=== PATIENT | female | born 1945 | race Caucasian/White ===

== ENCOUNTER 2018-01-08 05:52 | Day surgery (SDC) | payer MEDICARE, OTHER ==
[2018-01-08] MEDS ORDERED: PHENYLEPHRINE HCL IV ONE (05:53)
[2018-01-08] MEDS ORDERED: DIPRIVAN 200 MG/20 ML IV ONE (05:53)
[2018-01-08] MEDS ORDERED: Lactated Ringers 1,000 ML IV SCH (06:00)
[2018-01-08] MEDS ORDERED: Lactated Ringers 1,000 ML IV ONE (07:31)
[2018-01-08 08:51] VITALS: O2SAT 97
[2018-01-08 09:37] VITALS: BP 117/69; PULSE 62
--- NOTE | 2018-01-08 14:37 | OP ---
SURGERY DATE: 01/08/18 SURGERY TIME: 704 PREOPERATIVE DIAGNOSIS: 1. IRON DEFICIENCY ANEMIA. 2. NEED FOR SCREENING COLONOSCOPY. POSTOPERATIVE DIAGNOSIS: 1. MODERATE GASTRITIS. 2. MULTIPLE COLON POLYPS. PROCEDURE: 1. EGD. 2. Colonoscopy. SPECIMENS: There were 2 cold forceps biopsies taken from the gastric antrum and 12 hot forceps polypectomies. ESTIMATED BLOOD LOSS: Minimal. SURGEON: Dr. Tony Thornton. ANESTHESIA: MAC by Parker Nobles CRNA. DESCRIPTION OF PROCEDURE: After informed written consent was obtained, the patient was taken to the endoscopy suite. She underwent monitored anesthesia and a bite block was inserted. The endoscope was inserted in the posterior oropharynx and under direct visualization, the esophagus was traversed. The esophageal mucosa was normal in appearance, free of lesions or defects. The gastroesophageal junction had a normal mucosal appearance as well. Upon entry into the stomach, there was normal rugated gastric mucosa with evidence of old dried blood present throughout most of the stomach. There were no obvious areas of ulceration or active bleeding. There was some mild to moderate gastritis type changes in the area of the gastric antrum. Two cold forceps biopsies were taken from this area and sent for Helicobacter pylori testing. The 1st and 2nd portions of the duodenum appeared normal upon passage through the pylorus. Upon withdrawal, no other mucosal abnormalities were encountered. The scope was removed and the scopes were switched. Digital rectal exam showed normal sphincter tone and no internal lesions. The scope was inserted in the rectum and sequentially the entire colonic mucosa was traversed. The level of the cecum was reached and verified with direct visualization of the ileocecal valve. There was broad raised sessile polyp in the pericecal area which was grasped with forceps and base was cauterized and it was removed in its entirety in 2 pieces and sent for pathology testing. Upon withdrawal, there were 2 lesions in the ascending colon likewise which were removed grasping with forceps and cautery. Hepatic flexure polyps were removed X 2 as well. Upon further withdrawal, there were approximately 8 lesions present in the sigmoid colon in different positions throughout the sigmoid colon. They were grasped with forceps, cauterized at the base, removed, and sent for pathology testing. There were multiple large diverticula in the sigmoid colon as well, but no obvious bleeding. Prior to withdrawal, retroflexion showed no internal lesions. The scope was removed and the patient was transferred to the recovery room in excellent condition. I have advised that she hold her aspirin and Plavix for the next week and follow-up in 1 week for pathology results.
== END 2018-01-08 09:40 | disposition home or self-care (01) ==
LOC: SDC 05:52
PROVIDERS: ATTEND Family Medicine
DX: K29.70 Gastritis, unspecified, without bleeding (principal); D50.9 Iron deficiency anemia, unspecified; Z12.11 Encounter for screening for malignant neoplasm of colon; K63.5 Polyp of colon; I12.9 Hypertensive chronic kidney disease with stage 1 through stage 4 chronic kidney disease, or unspecified chronic kidney disease; N18.9 Chronic kidney disease, unspecified; Z86.73 Personal history of transient ischemic attack (TIA), and cerebral infarction without residual deficits
CPT/HCPCS: 99100; J2370; J2704

== ENCOUNTER 2018-04-07 09:33 | Day surgery (SDC) | payer MEDICARE, OTHER ==
--- NOTE | 2018-04-07 07:49 | HP ---
DATE OF SURGERY: 04/07/2018 HISTORY OF PRESENT ILLNESS: The patient is a 72 year-old patient of Dr. Tse found with some cholelithiasis. He had prior open abdominal aortic aneurysm repair by Dr. Panchal in the past. Dr. Tse felt that she had symptomatic cholelithiasis probable chronic cholecystitis. PAST MEDICAL HISTORY: Includes ruptured aneurysm repair by Dr. Panchal. She had Chiu's in the past. She has history of a common bile duct stone. PAST SURGICAL HISTORY: Open aneurysm repair 01/27/[address] Panchal. She had hysterectomy in the past. History of transient ischemic attack in the past. She had stent placed in the past for obstructed biliary tree postoperatively. MEDICATIONS: Amlodipine, aspirin, Atorvastatin, ciprofloxacin, Zetia, levothyroxine, metoprolol, pantoprazole, Sulcralfate. ALLERGIES: NKDA. SOCIAL HISTORY: No smoking or alcohol abuse currently. REVIEW OF SYSTEMS: Twelve systems reviewed per admission assessment. She has hyperlipidemia, hypertension. No history of transient ischemic attack or stroke in the past. No chest pain or palpitations other systems negative or noncontributory as above and per preadmission questionnaire. PHYSICAL EXAMINATION: GENERAL: No acute distress. HEENT: Sclerae nonicteric. NECK: No JVD. CHEST: Equal excursion, nonlabored breathing. CVS: Regular rate and rhythm. ABDOMEN: Soft. She has a midline incision from prior open aneurysm repair. EXTREMITIES: No significant edema. NEURO: Alert, oriented, moving extremities grossly symmetrically. No gross motor deficits noted. IMPRESSION: History of common bile duct stone. She is in need of cholecystectomy. She was shown the gallbladder pamphlet, explained the risks in detail but not limited to bleeding or infection, risk of trocar injury or hernia, small risk of bowel, bladder or blood vessel injury, small risk of bile leak, bile duct injury, retained stone or sludge possibly requiring further procedure either open or ERCP, general risk of anesthesia, deep venous thrombosis, pulmonary embolism, pneumonia, perioperative risk of aches, pains, bloating, constipation and/or loose stools possibly even chronic in nature. She understands she has higher probability of needing an open procedure again with her midline incision from her recent aneurysm repair. She still understands and agrees to the planned procedure, will proceed with laparoscopic cholecystectomy with possible open.
[~2018-04-07 09:33] MED LIST: Lactated Ringers 1,000 ML IV ONE; Lactated Ringers 1,000 ML IV SCH; MEFOXIN 2 GM PREMIX** 2 GM/50 ML ML IV ONE
[2018-04-07] MEDS ORDERED: DIPRIVAN 200 MG/20 ML IV ONE (09:34)
[2018-04-07] MEDS ORDERED: Zofran 4 MG/2 ML VIAL IV ONE (09:34)
[2018-04-07] MEDS ORDERED: SUBLIMAZE 250 MCG/5 ML IV ONE (09:34)
[2018-04-07] MEDS ORDERED: PHENYLEPHRINE HCL IV ONE (09:34)
[2018-04-07] MEDS ORDERED: Zemuron 100 MG/10 ML IV ONE (09:34)
[2018-04-07] MEDS ORDERED: Ephedrine Sulfate 50 MG/ML IV ONE (09:34)
[2018-04-07] MEDS ORDERED: Lactated Ringers 1,000 ML IV ONE (09:37)
[2018-04-07] MEDS ORDERED: Sensorcaine 0.25% 10 ML ONE (09:37)
[2018-04-07] MEDS ORDERED: Versed 2 MG/2 ML Injection IV ONE (09:48)
[2018-04-07] MEDS ORDERED: Versed 2 MG/2 ML Injection ONE (10:05)
[2018-04-07] MEDS ORDERED: MORPHINE SULFATE 10 MG/ML ONE (13:08)
[2018-04-07] MEDS ORDERED: NORCO 5/325 MG PO PRN (13:42)
[2018-04-07] MEDS ORDERED: NORCO 5/325 MG ONE (13:44)
[2018-04-07 14:26] LABS: Appearance CLEAR (CLEAR); Bacteria FEW /HPF (NEGATIVE); Bilirubin SMALL (NEGATIVE); Epithelial Cells RARE /HPF (FEW); Glucose NEGATIVE (NEGATIVE); Ketones NEGATIVE (NEGATIVE); Leukocyte Esterase 1+ (NEGATIVE); Nitrite NEGATIVE (NEGATIVE); Protein,Urine Dip 1+ (Negative); Urobilinogen NORMAL mg/dL (0-1)
[2018-04-07 15:47] VITALS: O2SAT 93
[2018-04-07 16:02] VITALS: BP 127/77; PULSE 76
--- NOTE | 2018-04-08 10:58 | OP ---
SURGERY DATE/TIME: 04/07/2018 1147 PREOPERATIVE DIAGNOSES: 1) History of prior open ruptured aneurysm repair by Dr. Panchal. 2) History of choledocholithiasis status post stone extraction and stent placement per Dr. Tse. 3) Cholelithiasis, chronic cholecystitis. POSTOPERATIVE DIAGNOSES: 1) History of prior open ruptured aneurysm repair by Dr. Panchal. 2) History of choledocholithiasis status post stone extraction and stent placement per Dr. Tse. 3) Cholelithiasis, chronic cholecystitis. 4) Extensive intra-abdominal adhesions. PROCEDURES: 1) Laparoscopic lysis of adhesions. 2) Laparoscopic cholecystectomy. SURGEON: Dr. João Arora. ANESTHESIA: General. ESTIMATED BLOOD LOSS: Minimal. INDICATIONS: As noted above. Risks and benefits explained in detail but not limited to and consent was obtained. DESCRIPTION OF PROCEDURE AND FINDINGS: The patient was taken to the OR. General anesthesia induced. Abdomen prepped and draped in the usual sterile fashion. After official time out and no disagreement with planned procedure, a transverse incision made to the right of the midline incision from a prior ruptured abdominal aortic aneurysm repair. Veress needle inserted. Pneumoperitoneum accomplished insufflating opening pressure of 0-15. Once this was accomplished a 5 mm right upper quadrant port was placed without difficulty. There were extensive omental adhesions up in this area. There was no viscera right in this area. I was able to create it above the liver to allow the 5 mm epigastric port to be placed and another right upper quadrant 5 mm port. A combination of laparoscopic omid lysing the omental adhesions as well as intermittent use of LigaSure device on vascular omental adhesions. The adhesions were carefully taken down off of the inferior abdominal wall slowly and carefully creating a window to allow for the laparoscopic cholecystectomy to take place allowing access to where the Veress needle had been placed. Dissection was carried down to this. There was no evidence of any bowel or viscera in this area. No evidence of any issues secondary to Veress needle or port placement. This took some time with extensive lysis of adhesions in the upper abdomen that had been slowly and carefully accomplished allowing access to place the remaining ports for proceeding with cholecystectomy laparoscopically. A 5 mm bladeless port and camera were inserted to the right of the umbilicus. The 5 mm port in the epigastrium was changed to 10/11 port. The gallbladder was grasped and retracted up over the edge of the liver. Extensive omental adhesions dissected posterior, lateral to anterior fashion slowly and carefully allowing access to cystic duct and infundibular junction slowly and carefully well skeletonized until critical view obtained both anteriorly and posteriorly. Once this was accomplished cystic duct was then clipped x3 and divided in usual fashion. Main cystic artery was isolated directly on the gallbladder wall. It was clipped x3 and divided in usual fashion. There was oozing side branch off the cystic artery that was isolated directly on the gallbladder wall clipped and divided in usual fashion. The gallbladder was slowly and carefully dissected free from its dense almost concrete attachments to the liver bed slowly and carefully staying on the gallbladder wall clipping additional oozing side branches off the cystic artery as necessary. This took quite some time given extensive chronic inflammatory reaction but slowly and carefully accomplished. There was small ooze from the anterior edge of the liver this was controlled with brief bursts of cautery of pinpoint cautery. Good hemostasis noted. Just prior to releasing from final attachments to the anterior edge of the liver the liver bed re-inspected. Clips are noted in place in cystic duct and cystic artery stumps. There were no signs of any active bleeding or bile leakage from the liver bed itself. One of the graspers tore a small pinhole in the gallbladder spilling a small amount of bile. There was no evidence of any obvious stone or visible sludge spillage. The gallbladder was released from final attachments from anterior edge of the liver placed in a Pleatman sac and taken out epigastric 10/11 port site and passed off. Copious amount of irrigation accomplished lateral to the liver and subhepatic space irrigating until clear with copious amount of saline, irrigating as clear as possible. The liver bed re-inspected. Clips noted in place in cystic duct and cystic artery stumps. There were no signs of any active bleeding or bile leakage. There was a little raw edge of the liver but no visible vessel to cauterize or clip so put a small piece of Surgicel was left up against this and had good hemostasis. Good hemostasis noted. It was felt there is no benefit from drain placement. Careful inspected of all lysis of adhesions and stayed well away from any viscera. Good hemostasis noted. There is no evidence of any issue secondary to lysis of adhesions that had taken extensive extra time for the case but had been carefully accomplished. The port was removed lateral to the umbilical area. Good hemostasis noted. Pneumoperitoneum suctioned free after first closing the 11 fascial defect with puncture closure device with #1 Vicryl. Pneumoperitoneum decompressed. The wound was irrigated out. Skin incision closed with 4-0 Vicryl. Steri-Strips and sterile dressing applied. 0.25% Marcaine local had been injected along the skin incision fascial defect. The patient tolerated the procedure well. There were no immediate complications. Findings discussed with the family out in the waiting area. She was transferred to the recovery room in stable condition.
== END 2018-04-07 16:15 | disposition home or self-care (01) ==
LOC: SDC 09:33
PROVIDERS: ATTEND Surgery
DX: K80.10 Calculus of gallbladder with chronic cholecystitis without obstruction (principal); K66.0 Peritoneal adhesions (postprocedural) (postinfection); Z79.899 Other long term (current) drug therapy
CPT/HCPCS: 81000; 87086; 88304; 94250; 99100; J0694; J2250; J2270; J2370; J2405; J2704; J3010; A9270-GY

== ENCOUNTER 2019-11-23 04:53 | Emergency (ER) | payer MEDICARE, OTHER ==
[2019-11-23] MEDS ORDERED: DUONEB 0.5-3 MG/3 ml Neb IH ONE ×2 (05:28→05:39)
[2019-11-23] MEDS ORDERED: PROVENTIL 2.5 MG/3 ML NEB IH ONE ×2 (05:28→05:39)
--- NOTE | 2019-11-23 05:39 | ERPHSYRPT ---
- History of Present Illness Source: patient Exam Limitations: no limitations Patient Subjective Stated Complaint: pt c/o cough x2 weeks, sob, low blood pressure and low O2 sats, nausea, cold sweat. Triage Nursing Assessment: pt c/o cough x2 weeks. But tonight around 2300, became sob, low O2 sats, hypotension, nausea and cold sweat. Pt c/o productive cough, clear in color. Pt denies any fever. Pt has runny nose. Lungs diminished throughout ant/post, not much air movement. Heart tones reg, abd soft with active bs x4 quad. pt c/o weakness and tiredness. Pt states, "I haven't slept hardly in a week". Pt doesn't wear O2 at home but does wear a CPAP at night. Associated Symptoms: shortness of breath, cough, headaches, No nausea, No vomiting, No abdominal pain, No chest pain, No fever Hx Tetanus, Diphtheria Vaccination/Date Given: Yes Hx Influenza Vaccination/Date Given: No Hx Pneumococcal Vaccination/Date Given: Yes Immunizations Up to Date: Yes <FAB MALDONADO - Last Filed: 11/23/19 07:01> <LEROY RICHARDSON - Last Filed: 11/23/19 08:48> - History of Present Illness Time Seen by Provider: 11/23/19 05:28 Physician History: The patient is a 74-year-old female with a past medical history significant for COPD, ongoing cigarette use who reportedly was smoking 2 packs a day until about a year ago and now is down to a half a pack a day, atrial fibrillation for which she is anticoagulated with apixaban, hypertension, and a history of a AAA who presents with a chief complaint of a productive cough and shortness of breath. Persistent cough for the last 2 weeks and progressive shortness of breath. She was seen by her primary care provider, Dr. Thornton, last Saturday. She reportedly has been using her nebs at home with no relief. She also has a history of obstructive sleep apnea for which she uses CPAP but has been using it frequently at night because of her cough over the last couple weeks. She endorsed having an intermittent headache but currently no headache now, runny nose but denies chest pain, productive cough, fever, myalgias, sore throat. The patient endorsed having a bilateral earache for which she was prescribed Augmentin for otitis media. The patient denies melena, hematochezia or any known blood loss and states that she has been worked up for anemia as an outpatient to include stool studies and currently there is no source of her bleeding at this time. She arrives via EMS and received 1 DuoNeb, IV access, and 125 mg of Solu-Medrol prior to arrival. She does not use supplemental oxygen at home (FAB MALDONADO) Allergies/Adverse Reactions: No Known Drug Allergies Allergy (Verified 11/23/19 05:12) Home Medications: Amlodipine Besylate 5 mg [Norvasc 5 mg] 5 mg PO BID 01/06/18 [History] Atorvastatin Calcium 80 mg PO DAILY 01/06/18 [History] Levothyroxine Sodium 88 Mcg [Synthroid 88 Mcg] 88 mcg PO DAILY 01/06/18 [ History] Ezetimibe 10 mg [Zetia 10 MG] 10 mg PO HS 04/02/18 [History] Metoprolol Tartrate 50 mg PO BID 04/02/18 [History] PANTOPRAZOLE 40 mg Tablet [Protonix 40MG Tablet] 40 mg PO BID 04/02/18 [ History] Alirocumab [Praluent Pen] 75 mg SQ UD 11/23/19 [History] Amoxicillin/Potassium Clav [Amox-Clav 875-125 mg Tablet] 1 tab PO BID 11/23/19 [ History] Apixaban [Eliquis] 5 mg PO BID 11/23/19 [History] Hydralazine HCl 10 mg PO TID PRN 11/23/19 [History] [place]-3 Fatty Acids/Fish Oil [Fish Oil 1,000 mg Capsule] 1 tab PO BID 11/23/19 [ History] Travel Risk - International Travel Have you traveled outside of the country in past 3 weeks: No Have you or anyone close to you been diagnosed with or: No Do your reside in a community with a known COVID-19 case?: No - Coronavirus Screening Has patient experienced Coronavirus symptoms: Yes Symptoms experienced: respiratory symptoms (i.e.Cought,shortness of breath) Date of respiratory symptoms onset:: 11/09/19 <FAB MALDONADO - Last Filed: 11/23/19 07:01> - Review of Systems Constitutional: Fatigue, No Fever, No Chills Eyes: No Symptoms Ears, Nose, & Throat: Ear Pain, Nose Congestion, No Ear Discharge, No Hearing Changes, No Hoarse, No Painful Swallowing, No Snoring, No Stridor Respiratory: Cough, Dyspnea, Dyspnea on Exertion (PERES), Wheezing Cardiac: No Chest Pain, No Edema, No Palpitations, No Syncope Abdominal/Gastrointestinal: No Abdominal Pain, No Nausea, No Vomiting, No Diarrhea Genitourinary Symptoms: No Dysuria Musculoskeletal: No Back Pain Skin: No Symptoms Neurological: No Symptoms, Headache, No Focal Weakness Psychological: No Symptoms Endocrine: No Symptoms Hematologic/Lymphatic: No Symptoms All Other Systems: Reviewed and Negative <FAB MALDONADO - Last Filed: 11/23/19 07:01> - Past Medical History Pertinent Past Medical History: Yes Neurological History: Stroke, Other ENT History: No Pertinent History Cardiac History: High Cholesterol, Hypertension Respiratory History: COPD Endocrine Medical History: Hypothyroidism Musculoskeletal History: No Pertinent History GI Medical History: GERD History: No Pertinent History Psycho-Social History: No Pertinent History Female Reproductive Disorders: Cervical Cancer Other Medical History: 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 ruptured aaa - Past Surgical History Past Surgical History: Yes Neuro Surgical History: No Pertinent History Cardiac: Other Respiratory: No Pertinent History Gastrointestinal: Appendectomy, Cholecystectomy Genitourinary: No Pertinent History Musculoskeletal: No Pertinent History Female Surgical History: Hysterectomy Other Surgical History: AAA repair - Social History Smoking Status: Current every day smoker How long have you smoked: 40 yrs Exposure to second hand smoke: No Drug Use: none Patient Lives Alone: No - Female History Hx Now: No <FAB MALDONADO - Last Filed: 11/23/19 07:01> - Physical Exam General Appearance: no apparent distress, alert Eye Exam: PERRL/EOMI, eyes nml inspection Ears, Nose, Throat Exam: normal ENT inspection, TMs normal, pharynx normal, moist mucous membranes, No TM abnormal (R), No TM abnormal (L), No pharyngeal erythema, No tonsillar exudate Neck Exam: normal inspection, non-tender, supple, No mass, No JVD Respiratory Exam: airway intact, diminished breath sounds, wheezing, No pleural rub Cardiovascular Exam: regular rate/rhythm, normal peripheral pulses, capillary refill <2 sec, No edema, No pulse deficit Gastrointestinal/Abdomen Exam: No soft, No tenderness, No distention, No mass Pelvic Exam: not done Rectal Exam: deferred Back Exam: normal inspection Extremity Exam: normal inspection, other (Lower extremity edema, calf tenderness or erythema to suggest DVT), No tenderness Neurologic Exam: alert, oriented x 3, cooperative Skin Exam: normal color, warm, dry, No rash, No petechiae, No jaundice SpO2: 89 O2 Delivery: Nasal Cannula <FAB MALDONADO - Last Filed: 11/23/19 07:01> - Nursing Vital Signs Nursing Vital Signs: Initial Vital Signs Temperature 98.3 F 11/23/19 04:58 Pulse Rate 55 L 11/23/19 04:58 Respiratory Rate 21 11/23/19 04:58 Blood Pressure 123/59 11/23/19 04:58 O2 Sat by Pulse Oximetry 88 L 11/23/19 04:58 Pain Scale Pain Intensity 0 - Course Nursing assessment & vital signs reviewed: Yes EKG Interpreted by Me: Sinus Eros, Left [place] Deviation, NORMAL INTERVALS, NORMAL QRS, Non-specific ST Changes <FAB MALDONADO - Last Filed: 11/23/19 07:01> - Course Nursing assessment & vital signs reviewed: Yes EKG Interpreted by Me: RATE (51) - Radiology Exams Chest X-ray Interpretation: Interpreted by me, Pneumonia (Right lower lobe) <LEROY RICHARDSON - Last Filed: 11/23/19 08:48> Ordered Tests: Active Orders 24 hr Category Date Time Status Binding D[place] STAT Care 11/23/19 05:29 Active EKG-ER Only STAT Care 11/23/19 05:28 Active IV Insertion STAT Care 11/23/19 05:28 Active Pulse Oximetry (ED) STAT Care 11/23/19 05:28 Active CHEST 2 VIEWS (PA AND LAT) Stat Exams 11/23/19 05:29 Taken CHEST WITHOUT CONTRAST [CT] Stat Exams 11/23/19 07:01 Ordered BLOOD CULTURE Stat Lab 11/23/19 05:45 Received BMP Stat Lab 11/23/19 05:45 Completed CBC W DIFF Stat Lab 11/23/19 05:45 Completed D-DIMER QUANTITATIVE Stat Lab 11/23/19 07:51 Ordered Ferritin Stat Lab 11/23/19 Ordered Hepatic Function Panel Stat Lab 11/23/19 07:50 Ordered Lactic Acid Stat Lab 11/23/19 06:14 Completed Occult Blood, Other Screening Stat Lab 11/23/19 07:00 Completed TROPONIN Q3H Lab 11/23/19 08:00 Ordered TROPONIN Q3H Lab 11/23/19 11:00 Ordered TROPONIN Q3H Lab 11/23/19 14:00 Ordered TROPONIN Q3H Lab 11/23/19 17:00 Ordered TROPONIN Q3H Lab 11/23/19 20:00 Ordered TROPONIN Q3H Lab 11/23/19 23:00 Ordered TROPONIN Stat Lab 11/23/19 05:45 Completed TSH [TSH, 3RD Generation] Stat Lab 11/23/19 06:04 Completed VENOUS BLOOD GAS Stat Lab 11/23/19 05:40 Completed Peak Expiratory Flow Rate ONCE RT 11/23/19 05:55 Completed Respiratory Therapy Assessment DAILY RT 11/23/19 05:55 Completed Medication Summary Discontinued Medications Generic Name Dose Route Start Last Admin Trade Name Freq PRN Reason Stop Dose Admin Albuterol Sulfate 2.5 mg 11/23/19 05:28 11/23/19 05:54 Proventil 2.5 Mg/3 Ml Neb IH 11/23/19 05:29 2.5 mg STAT ONE Administration Albuterol Sulfate Confirm 11/23/19 05:39 Proventil 2.5 Mg/3 Ml Neb Administered 11/23/19 05:40 Dose 2.5 mg IH .STK-MED ONE Albuterol/Ipratropium 3 ml 11/23/19 05:28 11/23/19 05:48 Duoneb 0.5-3 Mg/3 Ml Neb IH 11/23/19 05:29 3 ml STAT ONE Administration Albuterol/Ipratropium Confirm 11/23/19 05:39 Duoneb 0.5-3 Mg/3 Ml Neb Administered 11/23/19 05:40 Dose 3 ml IH .STK-MED ONE Azithromycin 500 mg in 250 mls @ 250 mls/hr 11/23/19 06:52 11/23/19 07:37 Zithromax 500 Mg/ 250 Ml Nacl Premix IV 11/23/19 07:51 250 mls/hr STAT ONE Administration Ceftriaxone Sodium/Dextrose 1 g in 50 mls @ 100 mls/hr 11/23/19 06:52 07:36 Rocephin 1 Gm-D5w 50 Ml Bag IV 11/23/19 07:21 Infused STAT STA Infusion Ceftriaxone Sodium/Dextrose Confirm 11/23/19 06:58 Rocephin 1 Gm-D5w 50 Ml Bag Administered 11/23/19 06:59 Dose 1 g in 50 mls @ ud IV .STK-MED ONE Azithromycin Confirm 11/23/19 07:32 Zithromax 500 Mg/ 250 Ml Nacl Premix Administered 11/23/19 07:33 Dose 500 mg in 250 mls @ ud IV .STK-MED ONE Lab/Rad Data: Laboratory Result Diagrams 11/23/19 05:45 11/23/19 05:45 Laboratory Results 11/23/19 11/23/19 11/23/19 Range/Units 07:00 06:41 06:14 WBC (4.0-10.5) K/mm3 RBC (4.1-5.4) M/mm3 Hgb (12.0-16.0) gm/dl Hct (35-47) % MCV (78-100) fl MCH (26-32) pg MCHC (32-36) g/dl RDW (11.5-14.0) % Plt Count (150-450) K/mm3 MPV (7.5-11.0) fl Gran % (36.0-66.0) % Eos # (Auto) (0-0.5) Absolute Lymphs (auto) (1.0-4.6) Absolute Monos (auto) (0.0-1.3) Lymphocytes % (24.0-44.0) % Monocytes % (0.0-12.0) % Eosinophils % (0.00-5.0) % Basophils % (0.0-0.4) % Absolute Granulocytes (1.4-6.9) Basophils # (0-0.4) pO2/FiO2 Ratio % VBG pH (7.32-7.42) VBG pCO2 at Pat Temp (42-55) mm/Hg VBG pO2 at Pat Temp (25-40) mm/Hg VBG HCO3 (22-28) meq/L VBG O2 Sat (Nazanin) (95-100) VBG Base Excess (-2.0-2.0) VBG Hemoglobin VBG Carboxyhemoglobin (0.0-6.9) % T HGB POC Potassium (3.5-5.1) Sodium (137-145) mmol/L Potassium (3.5-5.1) mmol/L Chloride (98-107) mmol/L Carbon Dioxide (22-30) mmol/L Anion Gap (5-15) MEQ/L BUN (7-17) mg/dL Creatinine (0.52-1.04) mg/dL Estimated GFR ML/MIN Glucose (74-106) mg/dL Lactic Acid 1.2 (0.4-2.0) Calcium (8.4-10.2) mg/dL Troponin I (0.000-0.034) ng/mL TSH 3rd Generation (0.47-4.68) mIU/L Stool Occult Blood NEGATIVE (Negative) Influenza Type A Ag (NEGATIVE) Influenza Type B Ag (NEGATIVE) RSV (PCR) (Negative) Crossmatch Pending 11/23/19 11/23/19 11/23/19 Range/Units 06:04 05:45 05:45 WBC (4.0-10.5) K/mm3 RBC (4.1-5.4) M/mm3 Hgb (12.0-16.0) gm/dl Hct (35-47) % MCV (78-100) fl MCH (26-32) pg MCHC (32-36) g/dl RDW (11.5-14.0) % Plt Count (150-450) K/mm3 MPV (7.5-11.0) fl Gran % (36.0-66.0) % Eos # (Auto) (0-0.5) Absolute Lymphs (auto) (1.0-4.6) Absolute Monos (auto) (0.0-1.3) Lymphocytes % (24.0-44.0) % Monocytes % (0.0-12.0) % Eosinophils % (0.00-5.0) % Basophils % (0.0-0.4) % Absolute Granulocytes (1.4-6.9) Basophils # (0-0.4) pO2/FiO2 Ratio % VBG pH (7.32-7.42) VBG pCO2 at Pat Temp (42-55) mm/Hg VBG pO2 at Pat Temp (25-40) mm/Hg VBG HCO3 (22-28) meq/L VBG O2 Sat (Nazanin) (95-100) VBG Base Excess (-2.0-2.0) VBG Hemoglobin VBG Carboxyhemoglobin (0.0-6.9) % T HGB POC Potassium (3.5-5.1) Sodium 135 L (137-145) mmol/L Potassium 5.5 H (3.5-5.1) mmol/L Chloride 105 (98-107) mmol/L Carbon Dioxide 23 (22-30) mmol/L Anion Gap 12.7 (5-15) MEQ/L BUN 41 H (7-17) mg/dL Creatinine 1.58 H (0.52-1.04) mg/dL Estimated GFR 34.0 ML/MIN Glucose 122 H (74-106) mg/dL Lactic Acid (0.4-2.0) Calcium 8.6 (8.4-10.2) mg/dL Troponin I 0.654 H* (0.000-0.034) ng/mL TSH 3rd Generation 2.220 (0.47-4.68) mIU/L Stool Occult Blood (Negative) Influenza Type A Ag NEGATIVE (NEGATIVE) Influenza Type B Ag NEGATIVE (NEGATIVE) RSV (PCR) NEGATIVE (Negative) Crossmatch 11/23/19 11/23/19 Range/Units 05:45 05:40 WBC 12.3 H (4.0-10.5) K/mm3 RBC 2.86 L (4.1-5.4) M/mm3 Hgb 7.1 L (12.0-16.0) gm/dl Hct 23.0 L (35-47) % MCV 80.4 (78-100) fl MCH 24.8 L (26-32) pg MCHC 30.9 L (32-36) g/dl RDW 16.8 H (11.5-14.0) % Plt Count 431 (150-450) K/mm3 MPV 8.9 (7.5-11.0) fl Gran % 77.2 H (36.0-66.0) % Eos # (Auto) 0.29 (0-0.5) Absolute Lymphs (auto) 1.39 (1.0-4.6) Absolute Monos (auto) 1.07 (0.0-1.3) Lymphocytes % 11.3 L (24.0-44.0) % Monocytes % 8.7 (0.0-12.0) % Eosinophils % 2.4 (0.00-5.0) % Basophils % 0.4 (0.0-0.4) % Absolute Granulocytes 9.49 H (1.4-6.9) Basophils # 0.05 (0-0.4) pO2/FiO2 Ratio 60.0 % VBG pH 7.38 (7.32-7.42) VBG pCO2 at Pat Temp 39 L (42-55) mm/Hg VBG pO2 at Pat Temp 35 (25-40) mm/Hg VBG HCO3 23.1 (22-28) meq/L VBG O2 Sat (Nazanin) 47.3 L (95-100) VBG Base Excess -1.8 (-2.0-2.0) VBG Hemoglobin 7.4 L* VBG Carboxyhemoglobin 2.2 (0.0-6.9) % T HGB POC Potassium 5.9 H (3.5-5.1) Sodium (137-145) mmol/L Potassium (3.5-5.1) mmol/L Chloride (98-107) mmol/L Carbon Dioxide (22-30) mmol/L Anion Gap (5-15) MEQ/L BUN (7-17) mg/dL Creatinine (0.52-1.04) mg/dL Estimated GFR ML/MIN Glucose (74-106) mg/dL Lactic Acid (0.4-2.0) Calcium (8.4-10.2) mg/dL Troponin I (0.000-0.034) ng/mL TSH 3rd Generation (0.47-4.68) mIU/L Stool Occult Blood (Negative) Influenza Type A Ag (NEGATIVE) Influenza Type B Ag (NEGATIVE) RSV (PCR) (Negative) Crossmatch - Progress Counseled pt/family regarding: lab results, diagnosis, rad results, smoking cessation <FAB MALDONADO - Last Filed: 11/23/19 07:01> - Progress Progress: unchanged Discussed with Dr.: Rockwell <LEROY RICHARDSON - Last Filed: 11/23/19 08:48> - Progress Progress Note: 11/23/19 06:04 Patient's EMR and it appears her hemoglobin was 8.8 on November 20, 2019 there is to be a normocytic anemia with a MVC of 79.9 On August 10, 2019 her hemoglobin was 10.1 and in April 2019 her hemoglobin was 12.3. R was noted to be 38.7 on November 19 with a creatinine of 1.41. LFTs with the exception of alk phos being 150 at that time. 11/23/19 06:05 I do not have a documented TSH since 2016 I will go ahead and check this at this time as hypothyroidism could be the cause of her bradycardia in addition to anemia. 11/23/19 06:19 Since EMR, specifically her labs obtained on November 19 and it appears she had a normal B12 and folate level. Her iron studies showed that she was slightly iron deficient of her anemia is a combination of iron deficiency anemia, anemia of chronic disease and possible from a slow amount of blood loss from an etiology unknown at this time. I will obtain stool Hemoccult and because her troponin is I will go ahead and transfuse her with 2 units of packed red blood cells. I believe her elevated troponin is likely secondary to myocardial ischemia from a type II event given her shortness of breath, COPD exacerbation in combination with her anemia. Her EKG showed no evidence of acute myocardial ischemia or injury, specifically with no evidence of STEMI. 11/23/19 06:55 Patient care has been transitioned to Dr. Swansno pending admission transfer. The patient will need to be admitted for acute respiratory failure with hypoxia secondary to sepsis from community-acquired pneumonia of the right lung. The patient also has symptomatic anemia and an end STEMI likely from a type II event from her anemia and respiratory distress. Blood cultures are currently pending in addition to antibiotic being administered, specifically ceftriaxone and azithromycin. (FAB MALDONADO) - Departure Critical Care Time: Yes Critical Care Time(excluding separately billable procedures): Critical 30-74 mins <FAB MALDONADO - Last Filed: 11/23/19 07:01> - Departure Departure Disposition: Transfer (Transferred to [facility] accepting physician there Dr. Bustamante) <LEROY RICHARDSON - Last Filed: 11/23/19 08:48> - Departure Clinical Impression: COPD exacerbation, Symptomatic anemia, NSTEMI (non-ST elevated myocardial infarction), Acute respiratory failure with hypoxia, Community acquired pneumonia, Right lower lobe pneumonia, Sepsis Condition: Stable Referrals: PRANAV THORNTON MD [Primary Care Provider] - Instructions: Chronic Obstructive Pulmonary Disease
[2019-11-23 05:45] LABS: VBG BASE EXCESS -1.8 (-2.0-2.0); VBG CARBOXYHEMOGLOBIN 2.2 % T HGB (0.0-6.9); VBG HCO3- 23.1 meq/L (22-28); VBG O2 SATURATION 47.3 (95-100); VBG POTASSIUM 5.9 (3.5-5.1); VBG pH 7.38 (7.32-7.42)
[2019-11-23 05:46] LABS: VBG HEMOGLOBIN 7.4
[2019-11-23 06:08] LABS: Absolute Neutrophil Ct (ANC) 9.49 (1.4-6.9); BASOPHIL % 0.4 % (0.0-0.4); Basophil (Absolute #) 0.05 (0-0.4); Eosinophil % 2.4 % (0.00-5.0); Eosinophil (Absolute #) 0.29 (0-0.5); Hemoglobin 7.1 gm/dl (12.0-16.0); Lymphocyte (Absolute #) 1.39 (1.0-4.6); Lymphocytes % 11.3 % (24.0-44.0); Mean Cell Volume 80.4 fl (78-100); Mean Corpuscular Hemoglobin 24.8 pg (26-32); Mean Corpuscular Hgb Concent. 30.9 g/dl (32-36); Mean Platelet Volume 8.9 fl (7.5-11.0); Monocyte (Absolute #) 1.07 (0.0-1.3); Monocytes % 8.7 % (0.0-12.0); Neutrophil % 77.2 % (36.0-66.0); Platelet Count 431 K/mm3 (150-450); Red Blood Count 2.86 M/mm3 (4.1-5.4); Red Cell Distribution Width 16.8 % (11.5-14.0); White Blood Count 12.3 K/mm3 (4.0-10.5)
[2019-11-23 06:12] LABS: ANION GAP 12.7 MEQ/L (5-15); Calcium 8.6 mg/dL (8.4-10.2); Creatinine 1 1.58 mg/dL (0.52-1.04); Potassium 5.5 mmol/L (3.5-5.1)
[2019-11-23 06:13] LABS: TROPONIN 0.654 ng/mL (0.000-0.034)
[2019-11-23 06:20] LABS: INFLUENZA A NEGATIVE (NEGATIVE); INFLUENZA B NEGATIVE (NEGATIVE); RESPIRATORY SYNCTIAL VIRUS NEGATIVE (Negative)
[2019-11-23] MEDS ORDERED: Zithromax 500 MG/ 250 ML NaCl Premix 500 MG/250 ML IVPB IV ONE ×2 (06:52→07:32)
[2019-11-23] MEDS ORDERED: ROCEPHIN 1 Gm-D5w 50 ml Bag** 1 G/50 ML IVPB IV STA (06:52)
[2019-11-23] MEDS ORDERED: ROCEPHIN 1 Gm-D5w 50 ml Bag** 1 G/50 ML IVPB IV ONE (06:58)
[2019-11-23 08:44] LABS: ABO TYPING A; RH TYPING POSITIVE
[2019-11-23 08:45] LABS: Antibody Screen POSITIVE (NEGATIVE)
[2019-11-23 09:11] VITALS: BP 116/57; O2SAT 90
--- NOTE | 2019-11-23 09:16 | XRAY ---
Indication: Hypoxia. Cough. Comparison: July 19, 2016. AP/lateral chest demonstrates new right lower lobe air space disease and small effusion with stable COPD and left mid lung calcified granuloma. Remaining heart and left lung unremarkable. Bony thorax intact again with mild osteopenia and degenerative changes.
[2019-11-23 09:46] VITALS: PULSE 62
[2019-11-23 10:15] LABS: ALBUMIN 3.9 g/dL (3.5-5.0); BILIRUBIN,TOTAL 0.4 mg/dL (0.2-1.3); Direct Bilirubin 0.2 mg/dL (0.0-0.4); Ferritin 12.4 ng/mL (11.1-264); Total Protein 7.4 g/dL (6.3-8.2)
[2019-11-23 10:38] LABS: TROPONIN 0.669 ng/mL (0.000-0.034)
[2019-11-24 09:44] LABS: AB ID Interp Anti-E
[2019-11-24 12:45] LABS: Blood Bank Reference Report See Result Note:
== END 2019-11-23 09:35 | disposition short-term general hospital (02) ==
LOC: ED 04:53
DX: J44.1 Chronic obstructive pulmonary disease with (acute) exacerbation (principal); D64.9 Anemia, unspecified; I21.4 Non-ST elevation (NSTEMI) myocardial infarction; J96.01 Acute respiratory failure with hypoxia; J18.9 Pneumonia, unspecified organism; A41.9 Sepsis, unspecified organism; Z72.0 Tobacco use; E78.00 Pure hypercholesterolemia, unspecified; I10 Essential (primary) hypertension; E03.9 Hypothyroidism, unspecified; K21.9 Gastro-esophageal reflux disease without esophagitis; Z85.41 Personal history of malignant neoplasm of cervix uteri; G47.33 Obstructive sleep apnea (adult) (pediatric); Z79.899 Other long term (current) drug therapy
CPT/HCPCS: 36000; 36415; 71046; 80048; 80076; 82272; 82728; 82805; 83605; 84443; 84484; 85025; 85379; 86850; 86870; 86900; 86901; 87040; 87631; 93005; 93041; 94150; 94640; 94760; 96365; 96368; 99285; 99291; J0456; J0696; J7609; A9270-GY

== ENCOUNTER 2020-11-27 18:00 | Emergency (ER) | payer MEDICARE ==
[2020-11-27] MEDS ORDERED: Sodium Chloride 0.9% 1000 ML 1,000 ML ONE (18:22)
--- NOTE | 2020-11-27 18:23 | ERPHSYRPT ---
- History of Present Illness Source: patient, family Exam Limitations: no limitations Patient Subjective Stated Complaint: Chest pain/abdominal pain Triage Nursing Assessment: Patient ambulated back to ED and transferred to bed per self. Patient complains of left sided abdominal pain for the past two weeks. Patient states she was having pain to right side of chest that goes down right arm, but denies pain during triage. Lungs clear a/p glenny. Patient states she just feels weak right now. Patient denies pain or discomfort. Abdomen soft and round with BS X 4. Timing/Duration: today Severity: mild Associated Symptoms: chest pain (right side chest), other Hx Tetanus, Diphtheria Vaccination/Date Given: Yes Hx Influenza Vaccination/Date Given: No Hx Pneumococcal Vaccination/Date Given: Yes <TRISH,CHRISTOPHER - Last Filed: 11/27/20 18:35> <LEROY RICHARDSON - Last Filed: 11/27/20 20:22> - History of Present Illness Time Seen by Provider: 11/27/20 18:20 Physician History: Chest pain/abdominal pain for 1 day Patient complains of left sided abdominal pain for the past two weeks. Patient states she was having pain to right side of chest that goes down right arm (TRISH,CHRISTOPHER) Allergies/Adverse Reactions: No Known Drug Allergies Allergy (Verified 11/27/20 18:08) Home Medications: Amlodipine Besylate 5 mg [Norvasc 5 mg] 5 mg PO BID 01/06/18 [History] Atorvastatin Calcium 80 mg PO DAILY 01/06/18 [History] Levothyroxine Sodium 88 Mcg [Synthroid 88 Mcg] 88 mcg PO DAILY 01/06/18 [History] Ezetimibe 10 mg [Zetia 10 MG] 10 mg PO HS 04/02/18 [History] Metoprolol Tartrate 50 mg PO BID 04/02/18 [History] PANTOPRAZOLE 40 mg Tablet [Protonix 40MG Tablet] 40 mg PO BID 04/02/18 [History] Alirocumab [Praluent Pen] 75 mg SQ UD 11/23/19 [History] Amoxicillin/Potassium Clav [Amox-Clav 875-125 mg Tablet] 1 tab PO BID 11/23/19 [History] Apixaban [Eliquis] 5 mg PO BID 11/23/19 [History] Hydralazine HCl 10 mg PO TID PRN 11/23/19 [History] [place]-3 Fatty Acids/Fish Oil [Fish Oil 1,000 mg Capsule] 1 tab PO BID 11/23/19 [History] Travel Risk - International Travel Have you traveled outside of the country in past 3 weeks: No - Coronavirus Screening Are you exhibiting any of the following symptoms?: No Close contact with a COVID-19 positive Pt in past 14-21 Days: No <TRISH - Last Filed: 11/27/20 18:35> - Review of Systems Constitutional: No Fever, No Chills Eyes: No Symptoms Ears, Nose, & Throat: No Symptoms Respiratory: No Cough, No Dyspnea Cardiac: Chest Pain, No Edema, No Syncope Abdominal/Gastrointestinal: Abdominal Pain, No Nausea, No Vomiting, No Diarrhea Genitourinary Symptoms: No Dysuria Musculoskeletal: No Back Pain, No Neck Pain Skin: No Rash Neurological: No Dizziness, No Focal Weakness, No Sensory Changes Psychological: No Symptoms Endocrine: No Symptoms All Other Systems: Reviewed and Negative <TRISH - Last Filed: 11/27/20 18:35> - Past Medical History Pertinent Past Medical History: Yes Neurological History: Stroke, Other ENT History: No Pertinent History Cardiac History: High Cholesterol, Hypertension Respiratory History: COPD Endocrine Medical History: Hypothyroidism Musculoskeletal History: No Pertinent History GI Medical History: GERD History: No Pertinent History Psycho-Social History: No Pertinent History Female Reproductive Disorders: Cervical Cancer 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 ruptured aaa - Past Surgical History Past Surgical History: Yes Neuro Surgical History: No Pertinent History Cardiac: Other Respiratory: No Pertinent History Gastrointestinal: Appendectomy, Cholecystectomy Genitourinary: No Pertinent History Musculoskeletal: No Pertinent History Female Surgical History: Hysterectomy Other Surgical History: AAA repair - Social History Smoking Status: Current every day smoker How long have you smoked: 40 yrs Exposure to second hand smoke: No Drug Use: none Patient Lives Alone: No <TRISH - Last Filed: 11/27/20 18:35> - Physical Exam General Appearance: no apparent distress, alert Eye Exam: PERRL/EOMI, eyes nml inspection Ears, Nose, Throat Exam: normal ENT inspection, TMs normal, pharynx normal, moist mucous membranes Neck Exam: normal inspection, non-tender, supple, full range of motion Respiratory Exam: normal breath sounds, lungs clear, No respiratory distress Cardiovascular Exam: regular rate/rhythm, normal heart sounds, normal peripheral pulses Gastrointestinal/Abdomen Exam: soft, normal bowel sounds, tenderness (left lower quadrant), No mass Back Exam: normal inspection, normal range of motion, No CVA tenderness, No vertebral tenderness Extremity Exam: normal inspection, normal range of motion, pelvis stable Neurologic Exam: alert, oriented x 3, cooperative, normal mood/affect, nml cerebellar function, nml station & gait, sensation nml, No motor deficits Skin Exam: normal color, warm, dry, No rash Lymphatic Exam: No adenopathy SpO2: 97 <CHRISTOPHER CHAMBERS - Last Filed: 11/27/20 18:35> - Nursing Vital Signs Nursing Vital Signs: Initial Vital Signs Temperature 98.3 F 11/27/20 18:08 Pulse Rate 54 L 11/27/20 18:08 Respiratory Rate 18 11/27/20 18:08 Blood Pressure 148/67 11/27/20 18:08 O2 Sat by Pulse Oximetry 97 11/27/20 18:08 Pain Scale Pain Intensity 5 - Course Nursing assessment & vital signs reviewed: Yes - CT Exams Abdomen/Pelvis CT Interpretation: Tele-radiologist Report <CHRISTOPHER CHAMBERS - Last Filed: 11/27/20 18:35> - Course EKG Interpreted by Me: RATE (51), Sinus Rhythm, LAFB, Non-specific ST Changes - Radiology Exams Chest X-ray Interpretation: Interpreted by me (COPD there is rotation but the mediastinum may be widened no discrete infiltration is seen it appears most of the changes are chronic.) - CT Exams Abdomen/Pelvis CT Interpretation: Tele-radiologist Report <LEROY RICHARDSON - Last Filed: 11/27/20 20:22> Ordered Tests: Active Orders 24 hr Category Date Time Status Branch Operation Evaluation Manager STAT Care 11/27/20 18:12 Active EKG-ER Only STAT Care 11/27/20 18:12 Active EKG-ER Only STAT Care 11/27/20 18:23 Active ABDOMEN AND PELVIS W/0 CONTRAS [CT] Stat Exams 11/27/20 18:14 Taken CHEST 1 VIEW (PORTABLE) Stat Exams 11/27/20 18:12 Taken CBC W DIFF Stat Lab 11/27/20 18:20 Completed CMP Stat Lab 11/27/20 18:20 Completed D-DIMER QUANTITATIVE Stat Lab 11/27/20 18:20 Completed NT PRO BNP Stat Lab 11/27/20 18:20 Completed Occult Blood Stool [FECAL OCCULT BLOOD - SCREENING] Lab 11/27/20 19:02 Completed Stat PROTIME WITH INR Stat Lab 11/27/20 18:20 Completed PTT Stat Lab 11/27/20 18:20 Completed TROPONIN Q3H Lab 11/27/20 18:20 Completed TROPONIN Q3H Lab 11/27/20 21:15 Ordered TROPONIN Q3H Lab 11/28/20 00:15 Ordered TROPONIN Q3H Lab 11/28/20 03:15 Ordered TROPONIN Q3H Lab 11/28/20 06:15 Ordered Medication Summary Generic Name Dose Route Start Last Admin Trade Name Freq PRN Reason Stop Dose Admin Sodium Chloride 1,000 mls @ 50 mls/hr 11/27/20 18:15 11/27/20 18:24 Sodium Chloride 0.9% 1000 Ml IV 12/27/20 18:14 50 mls/hr .Q20H JIM Administration Lab/Rad Data: Laboratory Result Diagrams 11/27/20 18:20 11/27/20 18:20 Laboratory Results 11/27/20 11/27/20 11/27/20 Range/Units 19:02 18:20 18:20 WBC (4.0-10.5) K/mm3 RBC (4.1-5.4) M/mm3 Hgb (12.0-16.0) gm/dl Hct (35-47) % MCV (78-100) fl MCH (26-32) pg MCHC (32-36) g/dl RDW (11.5-14.0) % Plt Count (150-450) K/mm3 MPV (7.5-11.0) fl Gran % (36.0-66.0) % Eos # (Auto) (0-0.5) Absolute Lymphs (auto) (1.0-4.6) Absolute Monos (auto) (0.0-1.3) Lymphocytes % (24.0-44.0) % Monocytes % (0.0-12.0) % Eosinophils % (0.00-5.0) % Basophils % (0.0-0.4) % Absolute Granulocytes (1.4-6.9) Basophils # (0-0.4) PT 13.5 H (9.95-12.35) SECONDS INR 1.19 (0.8-3.0) APTT 32.1 (25.3-37.0) SECONDS D-Dimer (215-500) ng/mL Sodium (137-145) mmol/L Potassium (3.5-5.1) mmol/L Chloride (98-107) mmol/L Carbon Dioxide (22-30) mmol/L Anion Gap (5-15) MEQ/L BUN (7-17) mg/dL Creatinine (0.52-1.04) mg/dL Estimated GFR ML/MIN Glucose (74-106) mg/dL Calcium (8.4-10.2) mg/dL Total Bilirubin (0.2-1.3) mg/dL AST (14-36) U/L ALT (0-35) U/L Alkaline Phosphatase (38-126) U/L Troponin I < 0.012 (0.000-0.034) ng/mL NT-Pro-B Natriuret Pep (0-1800) pg/mL Serum Total Protein (6.3-8.2) g/dL Albumin (3.5-5.0) g/dL Stool Occult Blood NEGATIVE (NEGATIVE) 11/27/20 11/27/20 11/27/20 Range/Units 18:20 18:20 18:20 WBC 8.1 (4.0-10.5) K/mm3 RBC 2.25 L (4.1-5.4) M/mm3 Hgb 6.4 L* (12.0-16.0) gm/dl Hct 21.2 L (35-47) % MCV 94.2 (78-100) fl MCH 28.4 (26-32) pg MCHC 30.2 L (32-36) g/dl RDW 16.2 H (11.5-14.0) % Plt Count 385 (150-450) K/mm3 MPV 9.1 (7.5-11.0) fl Gran % 60.0 (36.0-66.0) % Eos # (Auto) 0.71 H (0-0.5) Absolute Lymphs (auto) 1.46 (1.0-4.6) Absolute Monos (auto) 1.02 (0.0-1.3) Lymphocytes % 18.1 L (24.0-44.0) % Monocytes % 12.7 H (0.0-12.0) % Eosinophils % 8.8 H (0.00-5.0) % Basophils % 0.4 (0.0-0.4) % Absolute Granulocytes 4.83 (1.4-6.9) Basophils # 0.03 (0-0.4) PT (9.95-12.35) SECONDS INR (0.8-3.0) APTT (25.3-37.0) SECONDS D-Dimer 1435 H* (215-500) ng/mL Sodium 134 L (137-145) mmol/L Potassium 4.7 (3.5-5.1) mmol/L Chloride 103 (98-107) mmol/L Carbon Dioxide 21 L (22-30) mmol/L Anion Gap 15.0 (5-15) MEQ/L BUN 42 H (7-17) mg/dL Creatinine 2.66 H (0.52-1.04) mg/dL Estimated GFR 18.6 ML/MIN Glucose 108 H (74-106) mg/dL Calcium 8.8 (8.4-10.2) mg/dL Total Bilirubin 0.20 (0.2-1.3) mg/dL AST 21 (14-36) U/L ALT 23 (0-35) U/L Alkaline Phosphatase 94 (38-126) U/L Troponin I (0.000-0.034) ng/mL NT-Pro-B Natriuret Pep 2410 H (0-1800) pg/mL Serum Total Protein 6.4 (6.3-8.2) g/dL Albumin 3.6 (3.5-5.0) g/dL Stool Occult Blood (NEGATIVE) - Progress Progress: unchanged Discussed with : Kimberley Will see patient in: hospital (observation) <LEROY RICHARDSON - Last Filed: 11/27/20 20:22> - Progress Progress Note: 11/27/20 20:21 Patient's exam findings were discussed with Dr. Chanel who is on-call for at this point we have a plan to admit her to the hospital for transfusion with 2 units tonight rule out MS with serial troponins and reevaluate her in the morning. (LEROY RICHARDSON) <CHRISTOPHER CHAMBERS - Last Filed: 11/27/20 18:35> - Departure Departure Disposition: Observation Critical Care Time: No <LEROY RICHARDSON - Last Filed: 11/27/20 20:22> - Departure Clinical Impression: Symptomatic anemia, COPD (chronic obstructive pulmonary disease), Adnexal cyst, Renal insufficiency, Abdominal pain Condition: Fair Referrals: PRANAV HELM MD [Primary Care Provider] - Instructions: Chronic Obstructive Pulmonary Disease
[2020-11-27] MEDS: Sodium Chloride 0.9% 1000 ML 1,000 ML IV SCH (18:24)
[2020-11-27 18:45] LABS: Absolute Neutrophil Ct (ANC) 4.83 (1.4-6.9); BASOPHIL % 0.4 % (0.0-0.4); Basophil (Absolute #) 0.03 (0-0.4); Eosinophil % 8.8 % (0.00-5.0); Eosinophil (Absolute #) 0.71 (0-0.5); Hematocrit 21.2 % (35-47); Lymphocyte (Absolute #) 1.46 (1.0-4.6); Lymphocytes % 18.1 % (24.0-44.0); Mean Cell Volume 94.2 fl (78-100); Mean Corpuscular Hemoglobin 28.4 pg (26-32); Mean Corpuscular Hgb Concent. 30.2 g/dl (32-36); Mean Platelet Volume 9.1 fl (7.5-11.0); Monocyte (Absolute #) 1.02 (0.0-1.3); Monocytes % 12.7 % (0.0-12.0); Platelet Count 385 K/mm3 (150-450); Red Blood Count 2.25 M/mm3 (4.1-5.4); Red Cell Distribution Width 16.2 % (11.5-14.0); White Blood Count 8.1 K/mm3 (4.0-10.5)
[2020-11-27 18:48] LABS: Hemoglobin 6.4 gm/dl (12.0-16.0)
[2020-11-27 18:52] LABS: ALBUMIN 3.6 g/dL (3.5-5.0); BILIRUBIN,TOTAL 0.2 mg/dL (0.2-1.3); Calcium 8.8 mg/dL (8.4-10.2); Creatinine 1 2.66 mg/dL (0.52-1.04); EST GLOMERULAR FILTRATION RATE 18.6 ML/MIN; Potassium 4.7 mmol/L (3.5-5.1); Total Protein 6.4 g/dL (6.3-8.2)
[2020-11-27 19:26] LABS: INR 1.19 (0.8-3.0); PROTIME 13.5 SECONDS (9.95-12.35)
[2020-11-27 19:29] LABS: PTT 32.1 SECONDS (25.3-37.0)
[2020-11-27] MEDS ORDERED: TYLENOL 325 MG PO PRN (20:23)
[2020-11-27] MEDS ORDERED: MILK OF MAGNESIA 30 ML PO PRN (20:23)
[2020-11-27] MEDS ORDERED: Senokot-S Tablet PO PRN (20:23)
[2020-11-27] MEDS ORDERED: MAALOX ES 30 ML UNIT DOSE PO PRN (20:23)
[2020-11-27] MEDS ORDERED: Zofran 4 MG/2 ML VIAL IV PRN (20:23)
[2020-11-27] MEDS ORDERED: Sodium Chloride 0.9% 500 ML 500 ML IV SCH (20:30)
[2020-11-27 21:32] LABS: INFLUENZA A NEGATIVE (NEGATIVE); INFLUENZA B NEGATIVE (NEGATIVE); RESPIRATORY SYNCTIAL VIRUS NEGATIVE (Negative)
[2020-11-27 21:42] LABS: ABO TYPING A; RH TYPING POSITIVE
[2020-11-27 21:43] LABS: Antibody Screen POSITIVE (NEGATIVE)
[2020-11-27 22:17] VITALS: BP 130/66; PULSE 58; O2SAT 94
--- NOTE | 2020-11-28 08:57 | XRAY ---
Indication: Chest pain. Comparison: November 23, 2019. Portable chest is now rotated again with a few calcified granulomas. Remaining lungs clear. Heart is not enlarged with prominent left epicardiac fat. Bony thorax intact again with mild osteopenia and degenerative changes. Incidental bilateral carotid calcifications not previously visualized. Impression: Nonacute chest with chronic features.
--- NOTE | 2020-11-28 09:00 | XRAY ---
Indication: Abdomen pain. Multiple contiguous axial images obtained through the abdomen and pelvis without contrast as ordered. Comparison: May 23, 2020. Lung bases again demonstrates minimal subsegmental atelectasis/scarring and a tiny calcified granulomas. No ventricular effusion. Heart is not enlarged. Stable small hiatal hernia. Noncontrasted stomach and bowel loops remain nonobstructed. Appendix not seen. Cecum demonstrates a 1.8 cm lipoma not previously reported. Stable descending/sigmoid diverticulosis. There is now mild diffuse scattered colonic fecal debris throughout. Stable cholecystectomy, hysterectomy, and bilateral renal cysts. Again 7.3 x 6.4 x 5.7 cm right adnexa cystic mass, previously 7.5 x 5.7 x 5.1 cm. New pneumobilia. No free fluid/air. Remaining liver, pancreas, spleen, adrenal glands, kidneys, ureters, and bladder appear unremarkable for noncontrast exam. Stable heavy scattered vascular calcifications and 4 cm infrarenal AAA. Osseous structures intact again with mild osteopenia, minimal degenerative changes throughout the spine, and mild levoscoliosis. Stable intact anterior ventral hernia mesh graft. Impression: 1. New cecal lipoma. 2. New diffuse fecal stasis. Stable colonic diverticulosis and cecal lipoma. 3. Probable stable right adnexa cystic mass. 4. Again incidental small hiatal hernia, bilateral renal cysts, scattered arteriosclerotic disease including distal AAA, and chronic bony findings. Comment: Preliminary interpretation was made by [facility]. No critical discrepancy.
== END 2020-11-27 22:55 | disposition short-term general hospital (02) ==
LOC: ED 18:00
DX: D64.89 Other specified anemias (principal); J44.9 Chronic obstructive pulmonary disease, unspecified; E27.8 Other specified disorders of adrenal gland; N28.9 Disorder of kidney and ureter, unspecified; R10.9 Unspecified abdominal pain; Z79.01 Long term (current) use of anticoagulants; I10 Essential (primary) hypertension; E78.00 Pure hypercholesterolemia, unspecified; R07.89 Other chest pain; Z79.899 Other long term (current) drug therapy
CPT/HCPCS: 0241U; 36415; 71045; 74176; 80053; 83880; 84484; 85025; 85379; 85610; 85730; 86850; 86900; 86901; 93005; 93041; 96360; 96361; 99285; G0328; 82274

== ENCOUNTER 2020-12-31 10:37 | Observation (INO) | payer MEDICARE ==
[2020-12-31] MEDS ORDERED: Sodium Chloride 0.9% 500 ML 500 ML IV ONE ×2 (11:07→11:21)
[2020-12-31] MEDS ORDERED: Zofran 4 MG/2 ML VIAL IV ONE (11:19)
[2020-12-31] MEDS ORDERED: Zofran 4 MG/2 ML VIAL ONE (11:22)
[2020-12-31] MEDS ORDERED: Sodium Chloride 0.9% 1000 ML 1,000 ML IV SCH (11:30)
[2020-12-31 11:32] LABS: Absolute Neutrophil Ct (ANC) 4.67 (1.4-6.9); BASOPHIL % 0.5 % (0.0-0.4); Basophil (Absolute #) 0.03 (0-0.4); Eosinophil % 6.5 % (0.00-5.0); Eosinophil (Absolute #) 0.42 (0-0.5); Hematocrit 29.7 % (35-47); Hemoglobin 9.2 gm/dl (12.0-16.0); Lymphocyte (Absolute #) 0.69 (1.0-4.6); Lymphocytes % 10.7 % (24.0-44.0); Mean Corpuscular Hemoglobin 28.5 pg (26-32); Monocyte (Absolute #) 0.66 (0.0-1.3); Monocytes % 10.2 % (0.0-12.0); Neutrophil % 72.1 % (36.0-66.0); Platelet Count 301 K/mm3 (150-450); Red Blood Count 3.23 M/mm3 (4.1-5.4); Red Cell Distribution Width 14.9 % (11.5-14.0); White Blood Count 6.5 K/mm3 (4.0-10.5)
[2020-12-31 11:45] LABS: ALBUMIN 3.8 g/dL (3.5-5.0); ANION GAP 14.2 MEQ/L (5-15); BILIRUBIN,TOTAL 0.3 mg/dL (0.2-1.3); Calcium 8.8 mg/dL (8.4-10.2); Creatinine 1 2.71 mg/dL (0.52-1.04); EST GLOMERULAR FILTRATION RATE 18.2 ML/MIN; Potassium 4.3 mmol/L (3.5-5.1); Total Protein 6.8 g/dL (6.3-8.2)
[2020-12-31] MEDS ORDERED: Sodium Chloride 0.9% 1000 ML 1,000 ML ONE (12:42)
[2020-12-31 12:55] LABS: MAGNESIUM 2.2 mg/dL (1.6-2.3); TSH, 3RD Generation 0.406 mIU/L (0.47-4.68)
[2020-12-31 14:08] LABS: Appearance SLIGHTLY CLOUDY (CLEAR); Bilirubin NEGATIVE (NEGATIVE); Blood NEGATIVE Ery/ul (0-5); Epithelial Cells FEW /HPF (FEW); Glucose NEGATIVE (NEGATIVE); Ketones NEGATIVE (NEGATIVE); Leukocyte Esterase NEGATIVE (NEGATIVE); Mucus SLIGHT /HPF (NEGATIVE); Nitrite NEGATIVE (NEGATIVE); Protein,Urine Dip 30 (Negative); RBC 0-2 /HPF (0-2); Specific Gravity 1.016 (1.005-1.025); Urobilinogen NEGATIVE mg/dL (0-1)
[2020-12-31] MEDS ORDERED: Unasyn 1.5GM / NaCl 100ML 1.5 GM/100 ML IVPB IV STA (14:08)
[2020-12-31] MEDS ORDERED: Unasyn 1.5GM / NaCl 100ML 1.5 GM/100 ML IVPB ONE (14:11)
--- NOTE | 2020-12-31 14:12 | ERPHSYRPT ---
- History of Present Illness Time Seen by Provider: 12/31/20 11:23 Historian: patient, family Exam Limitations: no limitations Patient Subjective Stated Complaint: Pt stated that she has been having abdominal issues for the past couple of months, states that she barely eats anything but continues to have diarrhea, nauseous, denies vomiting, pain in the LLQ and her right arm feels numb Triage Nursing Assessment: Pt brought to the ER by her , hypertensive, bradycardic, rates abdominal pain as 3/10, pulses normal, chills, afebrile, nausea, denies vomiting, bowel sounds heard in all 4 Physician History: 75 years old female with multiple medical problems presented in the ER with 2- month history of off-and-on diarrhea with abdominal pain which is lately getting worse for the last couple of days. Patient report 6-8 episodes of diarrhea yesterday and 9 episodes today, no hematochezia. It is associated with nausea but no vomiting. Patient also report pain in the left lower quadrant/periumbilical area moderate intensity dull aching without any significant aggravating or relieving factors. She denies any associated fever or chills. Patient does have history of blood loss anemia needing transfusions in the past but denies any blood in the stool. Timing/Duration: week(s) (8), gradual onset, worse Quality: dullness, fullness Abdominal Pain Onset Location: LLQ, periumbilical Pain Radiation: no radiation Severity of Pain-Max: moderate Severity of Pain-Current: moderate Modifying Factors: Improves With: nothing Associated Symptoms: fatigue, loss of appetite, nausea, weakness, No vomiting Previous symptoms: same symptoms as today Allergies/Adverse Reactions: No Known Drug Allergies Allergy (Verified 12/31/20 10:57) Home Medications: Atorvastatin Calcium 80 mg PO DAILY 01/06/18 [History] Levothyroxine Sodium 88 Mcg [Synthroid 88 Mcg] 88 mcg PO DAILY 01/06/18 [History] Ezetimibe 10 mg [Zetia 10 MG] 10 mg PO HS 04/02/18 [History] Metoprolol Tartrate 25 mg PO BID 04/02/18 [History] PANTOPRAZOLE 40 mg Tablet [Protonix 40MG Tablet] 40 mg PO BID 04/02/18 [History] Alirocumab [Praluent Pen] 75 mg SQ UD 11/23/19 [History] Hydralazine HCl 50 mg PO TID PRN 11/23/19 [History] [place]-3 Fatty Acids/Fish Oil [Fish Oil 1,000 mg Capsule] 1 tab PO BID 11/23/19 [History] Amiodarone HCl 200 mg PO DAILY 11/27/20 [History] Bumetanide 1 mg [Bumex 1 mg] 0.5 mg PO HS 11/27/20 [History] Ferrous Sulfate [Iron] 65 mg PO DAILY 11/27/20 [History] Polyethylene Glycol 3350 [Miralax] 17 gm PO DAILY PRN PRN 11/27/20 [History] Potassium Chloride 10 Meq Tab* [Klor Con 10 MEQ] 20 meq PO DAILY 11/27/20 [History] Rivaroxaban [Xarelto] 20 mg PO DAILY 11/27/20 [History] Amlodipine Besylate [Norvasc] 2.5 mg PO DAILY 12/31/20 [History] Hx Tetanus, Diphtheria Vaccination/Date Given: Yes Hx Influenza Vaccination/Date Given: No Hx Pneumococcal Vaccination/Date Given: Yes Travel Risk - International Travel Have you traveled outside of the country in past 3 weeks: No - Coronavirus Screening Are you exhibiting any of the following symptoms?: No Close contact with a COVID-19 positive Pt in past 14-21 Days: No - Vaccine Status Have you recieved a Covid-19 vaccination: Yes Gel Coat Sprayer: Moderna - Vaccination Dates Date of 2cond Vaccination (if applicable): 10/30/2020 - Review of Systems Constitutional: Fatigue, Weakness Eyes: No Symptoms Ears, Nose, & Throat: No Symptoms Respiratory: No Symptoms Cardiac: No Symptoms Abdominal/Gastrointestinal: Abdominal Pain, Nausea, Diarrhea, No Vomiting Genitourinary Symptoms: No Symptoms Musculoskeletal: No Symptoms Skin: No Symptoms Neurological: No Symptoms Psychological: No Symptoms Endocrine: No Symptoms Hematologic/Lymphatic: No Symptoms Immunological/Allergic: No Symptoms - Past Medical History Pertinent Past Medical History: Yes Neurological History: Stroke, Other ENT History: No Pertinent History Cardiac History: High Cholesterol, Hypertension Respiratory History: COPD Endocrine Medical History: Hypothyroidism Musculoskeletal History: No Pertinent History GI Medical History: GERD History: No Pertinent History Psycho-Social History: No Pertinent History Female Reproductive Disorders: Cervical Cancer Other Medical History: JAIN ARTITIS WHICH CAUSES HEADACHES AND JAW PAIN. ruptured aaa - Past Surgical History Past Surgical History: Yes Neuro Surgical History: No Pertinent History Cardiac: Other Respiratory: No Pertinent History Gastrointestinal: Appendectomy, Cholecystectomy Genitourinary: No Pertinent History Musculoskeletal: No Pertinent History Female Surgical History: Hysterectomy Other Surgical History: AAA repair - Social History Smoking Status: Current every day smoker How long have you smoked: 40 yrs Exposure to second hand smoke: Yes Drug Use: none Patient Lives Alone: No - Female History Hx Now: No - Nursing Vital Signs Nursing Vital Signs: Initial Vital Signs Temperature 98.3 F 12/31/20 10:45 Pulse Rate 53 L 12/31/20 10:45 Blood Pressure 147/59 12/31/20 10:45 O2 Sat by Pulse Oximetry 97 12/31/20 10:45 Pain Scale Pain Intensity 5 - Physical Exam General Appearance: no apparent distress, alert Eye Exam: PERRL/EOMI, eyes nml inspection Ears, Nose, Throat Exam: normal ENT inspection, pharynx normal Neck Exam: normal inspection, non-tender, supple, full range of motion Respiratory Exam: normal breath sounds, lungs clear Cardiovascular Exam: normal heart sounds, bradycardia Gastrointestinal/Abdomen Exam: soft, normal bowel sounds, tenderness (Left lower quadrant/epigastric/left flank), No guarding Back Exam: normal inspection, normal range of motion, No CVA tenderness Extremity Exam: normal inspection, normal range of motion Neurologic Exam: alert, oriented x 3, cooperative Skin Exam: normal color SpO2 Interpretation: normal SpO2: 96 O2 Delivery: Room Air Ordered Tests: Active Orders 24 hr Category Date Time Status Casing Blower STAT Care 12/31/20 11:19 Active EKG-ER Only STAT Care 12/31/20 11:18 Active IV Insertion STAT Care 12/31/20 11:18 Active NPO (ED) STAT Care 12/31/20 11:19 Active ABDOMEN AND PELVIS W/0 CONTRAS [CT] Stat Exams 12/31/20 11:27 Taken AMYLASE Stat Lab 12/31/20 11:19 Completed CBC W DIFF Stat Lab 12/31/20 11:19 Completed CMP Stat Lab 12/31/20 11:19 Completed FECAL OCCULT BLOOD - SCREENING Stat Lab 12/31/20 11:28 Ordered LIPASE Stat Lab 12/31/20 11:27 Completed Lactic Acid Stat Lab 12/31/20 12:08 Completed MAGNESIUM Stat Lab 12/31/20 11:27 Completed TSH, 3RD Generation Stat Lab 12/31/20 11:27 Completed UA W/RFX UR CULTURE Stat Lab 12/31/20 13:25 Ordered Medication Summary Generic Name Dose Route Start Last Admin Trade Name Rishi PRN Reason Stop Dose Admin Sodium Chloride 1,000 mls @ 100 mls/hr 12/31/20 11:30 12/31/20 12:42 Sodium Chloride 0.9% 1000 Ml IV 01/30/21 11:29 100 mls/hr .Q10H JIM Administration Ampicillin Sodium/Sulbactam Sodium 1.5 gm in 100 mls @ 200 mls/hr 12/31/20 14:08 Unasyn 1.5gm / Nacl 100ml IV 12/31/20 14:37 STAT STA Discontinued Medications Generic Name Dose Route Start Last Admin Trade Name Rishi PRN Reason Stop Dose Admin Sodium Chloride Confirm 12/31/20 11:07 Sodium Chloride 0.9% 500 Ml Administered 12/31/20 11:08 Dose 500 mls @ ud IV .STK-MED ONE Sodium Chloride 500 mls @ 500 mls/hr 12/31/20 11:21 12/31/20 12:28 Sodium Chloride 0.9% 500 Ml IV 12/31/20 12:20 Infused .Q1H ONE Infusion Ondansetron HCl 4 mg 12/31/20 11:19 12/31/20 11:23 Zofran 4 Mg/2 Ml Vial IV 12/31/20 11:20 4 mg STAT ONE Administration Ondansetron HCl Confirm 12/31/20 11:22 Zofran 4 Mg/2 Ml Vial Administered 12/31/20 11:23 Dose 4 mg .ROUTE .STK-MED ONE Lab/Rad Data: Laboratory Result Diagrams 12/31/20 11:19 12/31/20 11:19 Laboratory Results 12/31/20 12/31/20 12/31/20 Range/Units 12:08 11:27 11:19 WBC (4.0-10.5) K/mm3 RBC (4.1-5.4) M/mm3 Hgb (12.0-16.0) gm/dl Hct (35-47) % MCV (78-100) fl MCH (26-32) pg MCHC (32-36) g/dl RDW (11.5-14.0) % Plt Count (150-450) K/mm3 MPV (7.5-11.0) fl Gran % (36.0-66.0) % Eos # (Auto) (0-0.5) Absolute Lymphs (auto) (1.0-4.6) Absolute Monos (auto) (0.0-1.3) Lymphocytes % (24.0-44.0) % Monocytes % (0.0-12.0) % Eosinophils % (0.00-5.0) % Basophils % (0.0-0.4) % Absolute Granulocytes (1.4-6.9) Basophils # (0-0.4) Sodium 136 L (137-145) mmol/L Potassium 4.3 (3.5-5.1) mmol/L Chloride 104 (98-107) mmol/L Carbon Dioxide 22 (22-30) mmol/L Anion Gap 14.2 (5-15) MEQ/L BUN 34 H (7-17) mg/dL Creatinine 2.71 H (0.52-1.04) mg/dL Estimated GFR 18.2 ML/MIN Glucose 110 H (74-106) mg/dL Lactic Acid 0.6 (0.4-2.0) Calcium 8.8 (8.4-10.2) mg/dL Magnesium 2.2 (1.6-2.3) mg/dL Total Bilirubin 0.30 (0.2-1.3) mg/dL AST 31 (14-36) U/L ALT 35 (0-35) U/L Alkaline Phosphatase 126 (38-126) U/L Serum Total Protein 6.8 (6.3-8.2) g/dL Albumin 3.8 (3.5-5.0) g/dL Amylase 64 (30-110) U/L Lipase 146 (23-300) U/L TSH 3rd Generation 0.406 L (0.47-4.68) mIU/L 12/31/20 Range/Units 11:19 WBC 6.5 (4.0-10.5) K/mm3 RBC 3.23 L (4.1-5.4) M/mm3 Hgb 9.2 L (12.0-16.0) gm/dl Hct 29.7 L (35-47) % MCV 92.0 (78-100) fl MCH 28.5 (26-32) pg MCHC 31.0 L (32-36) g/dl RDW 14.9 H (11.5-14.0) % Plt Count 301 (150-450) K/mm3 MPV 9.0 (7.5-11.0) fl Gran % 72.1 H (36.0-66.0) % Eos # (Auto) 0.42 (0-0.5) Absolute Lymphs (auto) 0.69 L (1.0-4.6) Absolute Monos (auto) 0.66 (0.0-1.3) Lymphocytes % 10.7 L (24.0-44.0) % Monocytes % 10.2 (0.0-12.0) % Eosinophils % 6.5 H (0.00-5.0) % Basophils % 0.5 (0.0-0.4) % Absolute Granulocytes 4.67 (1.4-6.9) Basophils # 0.03 (0-0.4) Sodium (137-145) mmol/L Potassium (3.5-5.1) mmol/L Chloride (98-107) mmol/L Carbon Dioxide (22-30) mmol/L Anion Gap (5-15) MEQ/L BUN (7-17) mg/dL Creatinine (0.52-1.04) mg/dL Estimated GFR ML/MIN Glucose (74-106) mg/dL Lactic Acid (0.4-2.0) Calcium (8.4-10.2) mg/dL Magnesium (1.6-2.3) mg/dL Total Bilirubin (0.2-1.3) mg/dL AST (14-36) U/L ALT (0-35) U/L Alkaline Phosphatase (38-126) U/L Serum Total Protein (6.3-8.2) g/dL Albumin (3.5-5.0) g/dL Amylase (30-110) U/L Lipase (23-300) U/L TSH 3rd Generation (0.47-4.68) mIU/L - Progress Progress: improved, pain not gone completely, re-examined Progress Note: 12/31/20 14:17 75 years old is evaluated for lower abdominal pain and diarrhea with generalized weakness fatigue. She is given fluid bolus, work-up showed normal white count, stable H&H. Has chronic kidney disease with creatinine stable around 2.7. I have obtained CT abdomen pelvis which showed left-sided colitis, started on antibiotics. C. difficile is pending. Discussed with Dr. Chanel and patient is admitted. Discussed with .: Kimberley Counseled pt/family regarding: lab results, diagnosis, need for follow-up, rad results - Departure Departure Disposition: Observation Clinical Impression: Colitis Condition: Stable Critical Care Time: No Referrals: PRANAV HELM MD [Primary Care Provider] -
[2020-12-31 15:19] LABS: INFLUENZA A NEGATIVE (NEGATIVE); INFLUENZA B NEGATIVE (NEGATIVE); RESPIRATORY SYNCTIAL VIRUS NEGATIVE (Negative)
[2020-12-31] MEDS ORDERED: DUONEB 0.5-3 MG/3 ml Neb IH PRN (15:56)
[2020-12-31] MEDS: Sodium Chloride 0.9% 1000 ML 1,000 ML IV SCH ×2 (16:12→21:59)
[2020-12-31] MEDS: MORPHINE SULFATE 2 MG INJ IV PRN (16:25)
[2020-12-31] MEDS: Zofran 4 MG/2 ML VIAL IV PRN (16:26)
[2020-12-31] MEDS: XARELTO 10 MG TABLET PO SCH (17:13)
[2020-12-31] MEDS: DUONEB 0.5-3 MG/3 ml Neb IH SCH (19:12)
--- NOTE | 2020-12-31 20:40 | XRAY ---
Indication: Left lower quadrant pain, nausea, vomiting, diarrhea. Multiple contiguous axial images obtained through the abdomen and pelvis without contrast. Comparison: November 27, 2020. Lung bases again demonstrates minimal subsegmental atelectasis/scarring and tiny calcified granuloma. No infiltrate or effusion. Heart is not enlarged. Stable small hiatal hernia. Noncontrasted stomach and bowel loops remain nonobstructed. 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 Stable descending/sigmoid diverticulosis, 7.6 cm right adnexa mass, cholecystectomy, hysterectomy, and bilateral renal cysts. No free fluid/air. Remaining liver, pancreas, spleen, adrenal glands, kidneys, ureters, and bladder unremarkable for noncontrast exam. Stable heavy scattered vascular calcifications and 4 cm infrarenal AAA. Osseous structures intact again with osteopenia, degenerative changes, and minimal levoscoliosis. Intact anterior ventral hernia mesh graft. Impression: 1. Stable cecal lipoma, colonic diverticulosis, right adnexa cystic mass, arteriosclerotic disease with distal AAA, hiatal hernia, and chronic bony findings. 2. No new or acute intra-abdominal/pelvic abnormalities on this noncontrast exam. Comment: Preliminary interpretation was made by [facility] reports left colon bowel wall thickening/colitis that I believe is due to incomplete distention.
[2020-12-31] MEDS ORDERED: Unasyn 1.5GM Vial ONE (21:31)
[2020-12-31] MEDS ORDERED: Sodium Chloride 0.9% 100 ML BAG 100 ML IV ONE (21:32)
[2020-12-31] MEDS ORDERED: ZOCOR 20MG ONE (21:33)
[2020-12-31] MEDS: ZOCOR 20MG PO SCH (21:44)
[2020-12-31] MEDS: Lopressor 25MG Tab PO SCH (21:44)
[2020-12-31] MEDS: Apresoline 25 MG TABLET PO SCH (21:44)
[2020-12-31] MEDS: Protonix 40MG Tablet PO SCH (21:44)
[2020-12-31] MEDS: Pepcid 20 MG VIAL IV SCH (21:44)
[2020-12-31] MEDS: Unasyn 1.5GM / NaCl 100ML 1.5 GM/100 ML IVPB IV SCH (21:46)
[2020-12-31] MEDS ORDERED: LIPITOR 40MG PO SCH (22:00)
[2020-12-31] MEDS ORDERED: DUONEB 0.5-3 MG/3 ml Neb IH SCH (22:00)
[2020-12-31] MEDS: TYLENOL 325 MG PO PRN (23:16)
[2021-01-01] MEDS ORDERED: Sodium Chloride 0.9% 1000 ML 1,000 ML ONE (05:17)
[2021-01-01] MEDS: Sodium Chloride 0.9% 1000 ML 1,000 ML IV SCH ×2 (05:18→16:42)
[2021-01-01 06:12] LABS: Absolute Neutrophil Ct (ANC) 3.62 (1.4-6.9); BASOPHIL % 0.5 % (0.0-0.4); Basophil (Absolute #) 0.03 (0-0.4); Eosinophil % 8.1 % (0.00-5.0); Eosinophil (Absolute #) 0.47 (0-0.5); Hematocrit 27.3 % (35-47); Hemoglobin 8.2 gm/dl (12.0-16.0); Lymphocyte (Absolute #) 0.98 (1.0-4.6); Lymphocytes % 16.8 % (24.0-44.0); Mean Cell Volume 94.1 fl (78-100); Mean Corpuscular Hemoglobin 28.3 pg (26-32); Mean Platelet Volume 9.1 fl (7.5-11.0); Monocyte (Absolute #) 0.73 (0.0-1.3); Monocytes % 12.5 % (0.0-12.0); Neutrophil % 62.1 % (36.0-66.0); Platelet Count 282 K/mm3 (150-450); Red Cell Distribution Width 14.9 % (11.5-14.0); White Blood Count 5.8 K/mm3 (4.0-10.5)
[2021-01-01 06:21] LABS: ANION GAP 9.3 MEQ/L (5-15); BILIRUBIN,TOTAL 0.2 mg/dL (0.2-1.3); Calcium 7.9 mg/dL (8.4-10.2); Creatinine 1 2.25 mg/dL (0.52-1.04); EST GLOMERULAR FILTRATION RATE 22.5 ML/MIN; Potassium 4.2 mmol/L (3.5-5.1); Total Protein 5.8 g/dL (6.3-8.2)
[2021-01-01] MEDS: DUONEB 0.5-3 MG/3 ml Neb IH SCH ×2 (07:17→19:46)
[2021-01-01] MEDS: Protonix 40MG Tablet PO SCH ×2 (09:15→21:17)
[2021-01-01] MEDS: Lopressor 25MG Tab PO SCH ×2 (09:16→21:18)
[2021-01-01] MEDS: NORVASC 5 MG PO SCH (09:16)
[2021-01-01] MEDS: ECOTRIN 81 MG PO SCH (09:16)
[2021-01-01] MEDS: Klor Con 10 MEQ PO SCH (09:16)
[2021-01-01] MEDS: Apresoline 25 MG TABLET PO SCH ×3 (09:16→21:17)
[2021-01-01] MEDS: Pepcid 20 MG VIAL IV SCH ×2 (09:16→19:06)
[2021-01-01] MEDS: Cordarone 200 MG PO SCH (09:16)
[2021-01-01] MEDS: Unasyn 1.5GM / NaCl 100ML 1.5 GM/100 ML IVPB IV SCH ×2 (09:20→21:17)
[2021-01-01] MEDS ORDERED: NON-FORMULARY ITEM (Amlodipine Besylate [Norvasc] 2.5 MG) PO SCH (10:00)
[2021-01-01] MEDS: SYNTHROID 88 MCG PO SCH (10:49)
--- NOTE | 2021-01-01 12:02 | PCM.HP ---
History of Present Illness - Chief Complaint Chief Complaint: Colitis History of Present Illness: is a 75 year old female pt of Dr. Thornton with PMHx renal insufficiency, CVA, AAA, afib, HTN, STEPHANIE, hyperlipidemia, hypothyroidism who came to ER with worsening abdominal pain. She has had abdominal issues x 2 mo, alternating diarrhea and constipation. She told the ER doctor she had 9 episodes of diarrhea yesterday. She tells me she was weak mostly. Denies melena or hematochezia. last colonoscopy [address] Thornton. Pain was 6/10 in the ER; currently 0/10. She is tolerating CLD and would like to eat more. C. diff test is pending. In ER the CT was read as L sided colitis and she was started on Unasyn IV. WBC were 6.5. Fecal occult blood pending. Pt is a smoker, 1/4 PPD. - Review of Systems Constitutional: No Fever Ears, Nose, & Throat: Sinus Drainage, Other (congestion of ears) Musculoskeletal: Other (R lower arm pain, sequela of CVA) Neurological: Speech Changes (some aphasia at times) Medications & Allergies Home Medications: Home Medication List Atorvastatin Calcium 80 mg PO HS 01/06/18 [History Confirmed 12/31/20] Levothyroxine Sodium 88 Mcg [Synthroid 88 Mcg] 88 mcg PO DAILY 01/06/18 [History Confirmed 12/31/20] Aspirin 81 mg PO DAILY #0 01/08/18 [Rx Confirmed 12/31/20] Ezetimibe 10 mg [Zetia 10 MG] 10 mg PO HS 04/02/18 [History Confirmed 12/31/20] Metoprolol Tartrate 25 mg PO BID 04/02/18 [History Confirmed 12/31/20] PANTOPRAZOLE 40 mg Tablet [Protonix 40MG Tablet] 40 mg PO BID 04/02/18 [History Confirmed 12/31/20] Alirocumab [Praluent Pen] 75 mg SQ UD 11/23/19 [History Confirmed 12/31/20] Hydralazine HCl 50 mg PO TID PRN 11/23/19 [History Confirmed 12/31/20] [place]-3 Fatty Acids/Fish Oil [Fish Oil 1,000 mg Capsule] 1 tab PO BID 11/23/19 [History Confirmed 12/31/20] Amiodarone HCl 200 mg PO DAILY 11/27/20 [History Confirmed 12/31/20] Bumetanide 1 mg [Bumex 1 mg] 0.5 mg PO DAILY 11/27/20 [History Confirmed 12/31/20] Ferrous Sulfate [Iron] 65 mg PO DAILY 11/27/20 [History Confirmed 12/31/20] Polyethylene Glycol 3350 [Miralax] 17 gm PO DAILY PRN PRN 11/27/20 [History Confirmed 12/31/20] Potassium Chloride 10 Meq Tab* [Klor Con 10 MEQ] 20 meq PO DAILY 11/27/20 [History Confirmed 12/31/20] Rivaroxaban [Xarelto] 20 mg PO DAILY 11/27/20 [History Confirmed 12/31/20] Amlodipine Besylate [Norvasc] 2.5 mg PO DAILY 12/31/20 [History Confirmed 12/31/20] Allergies/Adverse Reactions: Allergies Allergy/AdvReac Type Severity Reaction Status Date / Time No Known Drug Allergies Allergy Verified 12/31/20 10:57 - Past Medical History Past Medical History: Yes Neurological History: Stroke, Other ENT History: No Pertinent History Cardiac History: High Cholesterol, Hypertension Respiratory History: COPD Endocrine Medical History: Hypothyroidism Musculoskelatal History: No Pertinent History GI Medical History: GERD History: No Pertinent History Pyscho-Social History: No Pertinent History Reproductive Disorders: Cervical Cancer Comment: PRESYBETERIAN ARTITIS WHICH CAUSES HEADACHES AND JAW PAIN. ruptured aaa - Female History Are you now?: No - Past Surgical History Past Surgical History: Yes Neuro Surgical History: No Pertinent History Cardiac History: Other Respiratory Surgery: No Pertinent History GI Surgical History: Appendectomy, Cholecystectomy Genitourinary Surgical Hx: No Pertinent History Musculskeletal Surgical Hx: No Pertinent History Female Surgical History: Hysterectomy Other Surgical History: AAA repair - Social History Smoking Status: Current every day smoker How long have you smoked: 40 yrs Exposure to second hand smoke: Yes Alcohol: None Drug Use: none - Physical Exam Vital Signs: Vital Signs - 24 hr Temp Pulse Resp BP Pulse Ox 01/01/21 07:59 98.1 F 54 L 16 151/67 95 01/01/21 07:21 55 L 18 91 L 01/01/21 03:44 97.9 F 60 17 158/70 95 01/01/21 00:00 98.2 F 58 L 19 151/67 93 L 12/31/20 20:00 98.4 F 53 L 17 142/65 92 L 12/31/20 19:05 59 L 16 95 12/31/20 16:00 69 96 12/31/20 15:55 78 16 159/68 97 12/31/20 15:03 52 L 15 177/70 96 12/31/20 14:18 96 12/31/20 14:00 56 L 16 177/70 96 12/31/20 13:25 54 L 16 129/77 96 12/31/20 12:03 53 L 16 159/62 95 General Appearance: no apparent distress, alert, obese Neurologic Exam: oriented x 3, cooperative Eye Exam: eyes nml inspection Ears, Nose, Throat Exam: moist mucous membranes Neck Exam: normal inspection, non-tender, No lymphadenopathy Respiratory Exam: normal breath sounds, lungs clear, No crackles/rales, No rhonchi, No wheezing Cardiovascular Exam: normal heart sounds, bradycardia, other (reg rhythm), No murmur Gastrointestinal/Abdomen Exam: soft, normal bowel sounds, No tenderness, No distention, No mass, No guarding, No rebound Results - Labs Lab/Micro Results: Lab Results-Last 24 Hours 12/31/20 12/31/20 12/31/20 Range/Units 11:19 11:27 12:08 WBC (4.0-10.5) K/mm3 RBC (4.1-5.4) M/mm3 Hgb (12.0-16.0) gm/dl Hct (35-47) % MCV (78-100) fl MCH (26-32) pg MCHC (32-36) g/dl RDW (11.5-14.0) % Plt Count (150-450) K/mm3 MPV (7.5-11.0) fl Gran % (36.0-66.0) % Eos # (Auto) (0-0.5) Absolute Lymphs (auto) (1.0-4.6) Absolute Monos (auto) (0.0-1.3) Lymphocytes % (24.0-44.0) % Monocytes % (0.0-12.0) % Eosinophils % (0.00-5.0) % Basophils % (0.0-0.4) % Absolute Granulocytes (1.4-6.9) Basophils # (0-0.4) Sodium 136 L (137-145) mmol/L Potassium 4.3 (3.5-5.1) mmol/L Chloride 104 (98-107) mmol/L Carbon Dioxide 22 (22-30) mmol/L Anion Gap 14.2 (5-15) MEQ/L BUN 34 H (7-17) mg/dL Creatinine 2.71 H (0.52-1.04) mg/dL Estimated GFR 18.2 ML/MIN Glucose 110 H (74-106) mg/dL Lactic Acid 0.6 (0.4-2.0) Calcium 8.8 (8.4-10.2) mg/dL Magnesium 2.2 (1.6-2.3) mg/dL Total Bilirubin 0.30 (0.2-1.3) mg/dL AST 31 (14-36) U/L ALT 35 (0-35) U/L Alkaline Phosphatase 126 (38-126) U/L Serum Total Protein 6.8 (6.3-8.2) g/dL Albumin 3.8 (3.5-5.0) g/dL Amylase 64 (30-110) U/L Lipase 146 (23-300) U/L TSH 3rd Generation 0.406 L (0.47-4.68) mIU/L Urine Color (YELLOW) Urine Appearance (CLEAR) Urine pH (5-6) Ur Specific [place] (1.005-1.025) Urine Protein (Negative) Urine Ketones (NEGATIVE) Urine Blood (0-5) Theo/ul Urine Nitrite (NEGATIVE) Urine Bilirubin (NEGATIVE) Urine Urobilinogen (0-1) mg/dL Ur Leukocyte Esterase (NEGATIVE) Urine WBC (Auto) (0-5) /HPF Urine RBC (Auto) (0-2) /HPF U Epithel Cells (Auto) (FEW) /HPF Urine Bacteria (Auto) (NEGATIVE) /HPF Urine Mucus (Auto) (NEGATIVE) /HPF Urine Culture Reflexed (NO) Urine Glucose (NEGATIVE) mg/dL Influenza Type A Ag (NEGATIVE) Influenza Type B Ag (NEGATIVE) RSV (PCR) (Negative) SARS-CoV-2 (PCR) (NEGATIVE) 12/31/20 12/31/20 01/01/21 Range/Units 13:25 14:27 06:12 WBC 5.8 (4.0-10.5) K/mm3 RBC 2.90 L (4.1-5.4) M/mm3 Hgb 8.2 L (12.0-16.0) gm/dl Hct 27.3 L (35-47) % MCV 94.1 (78-100) fl MCH 28.3 (26-32) pg MCHC 30.0 L (32-36) g/dl RDW 14.9 H (11.5-14.0) % Plt Count 282 (150-450) K/mm3 MPV 9.1 (7.5-11.0) fl Gran % 62.1 (36.0-66.0) % Eos # (Auto) 0.47 (0-0.5) Absolute Lymphs (auto) 0.98 L (1.0-4.6) Absolute Monos (auto) 0.73 (0.0-1.3) Lymphocytes % 16.8 L (24.0-44.0) % Monocytes % 12.5 H (0.0-12.0) % Eosinophils % 8.1 H (0.00-5.0) % Basophils % 0.5 (0.0-0.4) % Absolute Granulocytes 3.62 (1.4-6.9) Basophils # 0.03 (0-0.4) Sodium (137-145) mmol/L Potassium (3.5-5.1) mmol/L Chloride (98-107) mmol/L Carbon Dioxide (22-30) mmol/L Anion Gap (5-15) MEQ/L BUN (7-17) mg/dL Creatinine (0.52-1.04) mg/dL Estimated GFR ML/MIN Glucose (74-106) mg/dL Lactic Acid (0.4-2.0) Calcium (8.4-10.2) mg/dL Magnesium (1.6-2.3) mg/dL Total Bilirubin (0.2-1.3) mg/dL AST (14-36) U/L ALT (0-35) U/L Alkaline Phosphatase (38-126) U/L Serum Total Protein (6.3-8.2) g/dL Albumin (3.5-5.0) g/dL Amylase (30-110) U/L Lipase (23-300) U/L TSH 3rd Generation (0.47-4.68) mIU/L Urine Color YELLOW (YELLOW) Urine Appearance SLIGHTLY CLOUDY (CLEAR) Urine pH 5.0 (5-6) Ur Specific [place] 1.016 (1.005-1.025) Urine Protein 30 (Negative) Urine Ketones NEGATIVE (NEGATIVE) Urine Blood NEGATIVE (0-5) Theo/ul Urine Nitrite NEGATIVE (NEGATIVE) Urine Bilirubin NEGATIVE (NEGATIVE) Urine Urobilinogen NEGATIVE (0-1) mg/dL Ur Leukocyte Esterase NEGATIVE (NEGATIVE) Urine WBC (Auto) NONE (0-5) /HPF Urine RBC (Auto) 0-2 (0-2) /HPF U Epithel Cells (Auto) FEW (FEW) /HPF Urine Bacteria (Auto) NONE (NEGATIVE) /HPF Urine Mucus (Auto) SLIGHT (NEGATIVE) /HPF Urine Culture Reflexed NO (NO) Urine Glucose NEGATIVE (NEGATIVE) mg/dL Influenza Type A Ag NEGATIVE (NEGATIVE) Influenza Type B Ag NEGATIVE (NEGATIVE) RSV (PCR) NEGATIVE (Negative) SARS-CoV-2 (PCR) NEGATIVE (NEGATIVE) 01/01/21 Range/Units 06:12 WBC (4.0-10.5) K/mm3 RBC (4.1-5.4) M/mm3 Hgb (12.0-16.0) gm/dl Hct (35-47) % MCV (78-100) fl MCH (26-32) pg MCHC (32-36) g/dl RDW (11.5-14.0) % Plt Count (150-450) K/mm3 MPV (7.5-11.0) fl Gran % (36.0-66.0) % Eos # (Auto) (0-0.5) Absolute Lymphs (auto) (1.0-4.6) Absolute Monos (auto) (0.0-1.3) Lymphocytes % (24.0-44.0) % Monocytes % (0.0-12.0) % Eosinophils % (0.00-5.0) % Basophils % (0.0-0.4) % Absolute Granulocytes (1.4-6.9) Basophils # (0-0.4) Sodium 136 L (137-145) mmol/L Potassium 4.2 (3.5-5.1) mmol/L Chloride 111 H (98-107) mmol/L Carbon Dioxide 20 L (22-30) mmol/L Anion Gap 9.3 (5-15) MEQ/L BUN 27 H (7-17) mg/dL Creatinine 2.25 H (0.52-1.04) mg/dL Estimated GFR 22.5 ML/MIN Glucose 79 (74-106) mg/dL Lactic Acid (0.4-2.0) Calcium 7.9 L (8.4-10.2) mg/dL Magnesium (1.6-2.3) mg/dL Total Bilirubin 0.20 (0.2-1.3) mg/dL AST 32 (14-36) U/L ALT 29 (0-35) U/L Alkaline Phosphatase 107 (38-126) U/L Serum Total Protein 5.8 L (6.3-8.2) g/dL Albumin 3.0 L (3.5-5.0) g/dL Amylase (30-110) U/L Lipase (23-300) U/L TSH 3rd Generation (0.47-4.68) mIU/L Urine Color (YELLOW) Urine Appearance (CLEAR) Urine pH (5-6) Ur Specific [place] (1.005-1.025) Urine Protein (Negative) Urine Ketones (NEGATIVE) Urine Blood (0-5) Theo/ul Urine Nitrite (NEGATIVE) Urine Bilirubin (NEGATIVE) Urine Urobilinogen (0-1) mg/dL Ur Leukocyte Esterase (NEGATIVE) Urine WBC (Auto) (0-5) /HPF Urine RBC (Auto) (0-2) /HPF U Epithel Cells (Auto) (FEW) /HPF Urine Bacteria (Auto) (NEGATIVE) /HPF Urine Mucus (Auto) (NEGATIVE) /HPF Urine Culture Reflexed (NO) Urine Glucose (NEGATIVE) mg/dL Influenza Type A Ag (NEGATIVE) Influenza Type B Ag (NEGATIVE) RSV (PCR) (Negative) SARS-CoV-2 (PCR) (NEGATIVE) - Radiology Impressions Radiology Exams & Impressions: Radiology Procedures Category Date Time Status ABDOMEN AND PELVIS W/0 CONTRAS [CT] Stat Exams 12/31/20 11:27 Completed - Other Procedures and Tests Respiratory Therapy 05/01/21 18:53 Respiratory Therapy Assessment DAILY Assessment/Plan (1) Colitis Current Visit: Yes Status: Acute Assessment & Plan: On overread of CT, our radiologist does not think this is necessarily colitis. However she is feeling so much better I will leave her on the IV Unasyn (day #2). Advance diet as tolerated. Code(s): K52.9 - NONINFECTIVE GASTROENTERITIS AND COLITIS, UNSPECIFIED (2) Abdominal pain Current Visit: No Status: Resolved Code(s): R10.9 - UNSPECIFIED ABDOMINAL PAIN (3) Hypertension Current Visit: No Status: Chronic Qualifiers: Hypertension type: essential hypertension Qualified Code(s): I10 - Essential (primary) hypertension Code(s): I10 - ESSENTIAL (PRIMARY) HYPERTENSION
[2021-01-01] MEDS: Flonase NASAL NS SCH (16:23)
[2021-01-01] MEDS: XARELTO 10 MG TABLET PO SCH (17:42)
[2021-01-01] MEDS: Zofran 4 MG/2 ML VIAL IV PRN (17:42)
[2021-01-01] MEDS: MORPHINE SULFATE 2 MG INJ IV PRN ×2 (18:38→23:31)
[2021-01-01] MEDS ORDERED: Pepcid 20 MG VIAL IV ONE (18:43)
[2021-01-01] MEDS: ZOCOR 20MG PO SCH (21:17)
[2021-01-02] MEDS: TYLENOL 325 MG PO PRN (01:45)
[2021-01-02] MEDS: Zofran 4 MG/2 ML VIAL IV PRN (01:46)
[2021-01-02] MEDS: Sodium Chloride 0.9% 1000 ML 1,000 ML IV SCH (02:25)
[2021-01-02] MEDS: DUONEB 0.5-3 MG/3 ml Neb IH SCH ×2 (07:09→19:10)
[2021-01-02] MEDS: Flonase NASAL NS SCH (07:38)
--- NOTE | 2021-01-02 08:02 | PCM.NOTE ---
Date and Time: 01/02/21 0800 Subjective Assessment: patient with some nausea overnight, no more diarrhea. states she hasn't had anything to eat though. she feels short of breath today and oxygen requirements are increased Objective Exam General Appearance: no apparent distress, alert Respiratory Exam: normal breath sounds, lungs clear, No respiratory distress Cardiovascular Exam: regular rate/rhythm, normal heart sounds Gastrointestinal/Abdomen Exam: soft, normal bowel sounds, tenderness (LLQ, mild tenderness) Extremity Exam: normal inspection, normal range of motion OBJECTIVE DATA Vital Signs: Vital Signs - 24 hr Temp Pulse Resp BP Pulse Ox 01/02/21 07:11 66 24 84 L 01/02/21 03:50 98.4 F 59 L 19 136/64 92 L 01/02/21 00:00 98.5 F 62 20 137/63 91 L 01/01/21 20:00 98.2 F 63 17 179/77 92 L 01/01/21 19:46 54 L 20 89 L 01/01/21 16:00 98.5 F 55 L 16 164/72 96 01/01/21 12:00 98.4 F 54 L 16 160/69 94 L Pain Assessment - Last Documented Pain Intensity 8 Pain Scale Used 0-10 Pain Scale Intake and Output: Intake & Output 12/30/20 12/31/20 01/01/21 01/02/21 11:59 11:59 11:59 11:59 Intake Total 2423 2971 Output Total 400 1999 Balance 2022 97 Weight 60.781 kg 61.9 kg Lab Results: Lab Results-Last 24 Hours 01/01/21 Range/Units 19:31 Troponin I 0.016 (0.000-0.034) ng/mL Radiology Exams: Radiology Procedures Category Date Time Status ABDOMEN AND PELVIS W/0 CONTRAS [CT] Stat Exams 12/31/20 11:27 Completed Multi-Disciplinary Progress Notes: Multi-Disciplinary Progress Notes 01/01/21 20:03 Respiratory Note by Richard Sanders CALLED TO PT RM TO DO STAT EKG FOR PAIN IN CHEST. PT SATS ON RA UPON ARRIVAL WERE 88% ON RA. PT WEARS 2LPM PRN AT . I PLACED PT ON 2LPM AND SATS REMAINED UNDER 90%. TITRATED PT TO 4LPM AND SATS WERE STILL IN FLUX FROM 89% TO 91%. DURING NEB TX SATS ORESTES TO 96%. POST TX ON 4LPM SATS WERE 92% AND PT STATED SHE FELT BETTER. Initialized on 01/01/21 20:03 - END OF NOTE Assessment/Plan (1) Colitis Current Visit: Yes Status: Acute Assessment & Plan: on unasyn and flagyl, diarrhea resolved, tenderness appears improved. advance to bland diet Code(s): K52.9 - NONINFECTIVE GASTROENTERITIS AND COLITIS, UNSPECIFIED (2) CHF, acute on chronic Current Visit: Yes Status: Acute Assessment & Plan: d/c fluids, check labs this am and order chest xray. will start IV lasix Code(s): I50.9 - HEART FAILURE, UNSPECIFIED (3) COPD (chronic obstructive pulmonary disease) Current Visit: No Status: Chronic
[2021-01-02 08:33] LABS: Absolute Neutrophil Ct (ANC) 7.36 (1.4-6.9); BASOPHIL % 0.3 % (0.0-0.4); Basophil (Absolute #) 0.03 (0-0.4); Eosinophil % 3.5 % (0.00-5.0); Eosinophil (Absolute #) 0.33 (0-0.5); Hematocrit 25.2 % (35-47); Hemoglobin 7.5 gm/dl (12.0-16.0); Lymphocyte (Absolute #) 0.88 (1.0-4.6); Lymphocytes % 9.4 % (24.0-44.0); Mean Cell Volume 95.8 fl (78-100); Mean Corpuscular Hemoglobin 28.5 pg (26-32); Mean Corpuscular Hgb Concent. 29.8 g/dl (32-36); Monocytes % 8.5 % (0.0-12.0); Neutrophil % 78.3 % (36.0-66.0); Platelet Count 262 K/mm3 (150-450); Red Blood Count 2.63 M/mm3 (4.1-5.4); White Blood Count 9.4 K/mm3 (4.0-10.5)
--- NOTE | 2021-01-02 08:36 | XRAY ---
Indication: Dyspnea. Lung crackles on exam. Comparison: November 27, 2020. Portable chest rotated with new diffuse right lung interstitial alveolar opacities and minimal bilateral interstitial edema. No consolidation/large effusion. Heart not enlarged with stable left lung calcified granuloma.
[2021-01-02 09:20] LABS: ALBUMIN 3.1 g/dL (3.5-5.0); ANION GAP 10.3 MEQ/L (5-15); BILIRUBIN,TOTAL 0.4 mg/dL (0.2-1.3); Calcium 7.9 mg/dL (8.4-10.2); Creatinine 1 2.05 mg/dL (0.52-1.04); EST GLOMERULAR FILTRATION RATE 25.1 ML/MIN; Potassium 4.1 mmol/L (3.5-5.1); Total Protein 5.8 g/dL (6.3-8.2)
[2021-01-02] MEDS: Apresoline 25 MG TABLET PO SCH ×3 (09:48→21:58)
[2021-01-02] MEDS: Klor Con 10 MEQ PO SCH (09:48)
[2021-01-02] MEDS: Lasix 40 MG/4 ML IV SCH ×2 (09:48→17:58)
[2021-01-02] MEDS: NORVASC 5 MG PO SCH (09:48)
[2021-01-02] MEDS: Cordarone 200 MG PO SCH (09:49)
[2021-01-02] MEDS: Protonix 40MG Tablet PO SCH ×2 (09:49→22:01)
[2021-01-02] MEDS: Lopressor 25MG Tab PO SCH ×2 (09:49→21:58)
[2021-01-02] MEDS: ECOTRIN 81 MG PO SCH (09:49)
[2021-01-02] MEDS: Pepcid 20 MG VIAL IV SCH ×2 (09:50→21:58)
[2021-01-02] MEDS: SYNTHROID 88 MCG PO SCH (09:50)
[2021-01-02] MEDS: Unasyn 1.5GM / NaCl 100ML 1.5 GM/100 ML IVPB IV SCH ×2 (09:56→21:59)
[2021-01-02 13:47] LABS: A-aADO2 395; ABG HEMOGLOBIN 8.5; ABG POTASSIUM 4.5 (3.5-5.1); ARTERIAL BLD GAS O2 SATURATION 90.6 % (95-100); ARTERIAL BLOOD GAS BASE EXCESS -4.7 (-2.0-2.0); ARTERIAL BLOOD GAS FIO2 70 %; ARTERIAL BLOOD GAS PCO2 37 mmHg (35-45); ARTERIAL BLOOD GAS PO2 58 mmHg (75-100); ARTERIAL BLOOD GAS VENT MODE CPAP; ARTERIAL BLOOD GAS pH 7.35 (7.35-7.45); HCO3- 20.4 (22-28); HGB O2 SAT 89.1 g/dF (94-100); Methhemoglobin 0.7 % (1.4-1.5)
[2021-01-02 13:48] LABS: ABG SITE RIGHT BRACHIAL
[2021-01-02] MEDS: XARELTO 10 MG TABLET PO SCH (17:58)
[2021-01-02] MEDS: ZOCOR 20MG PO SCH (21:58)
[2021-01-03 06:05] LABS: Absolute Neutrophil Ct (ANC) 6.16 (1.4-6.9); BASOPHIL % 0.4 % (0.0-0.4); Basophil (Absolute #) 0.03 (0-0.4); Eosinophil (Absolute #) 0.33 (0-0.5); Hematocrit 24.9 % (35-47); Hemoglobin 7.6 gm/dl (12.0-16.0); Lymphocyte (Absolute #) 0.84 (1.0-4.6); Lymphocytes % 10.3 % (24.0-44.0); Mean Cell Volume 93.6 fl (78-100); Mean Corpuscular Hemoglobin 28.6 pg (26-32); Mean Corpuscular Hgb Concent. 30.5 g/dl (32-36); Mean Platelet Volume 9.4 fl (7.5-11.0); Monocytes % 9.8 % (0.0-12.0); Neutrophil % 75.5 % (36.0-66.0); Platelet Count 283 K/mm3 (150-450); Red Blood Count 2.66 M/mm3 (4.1-5.4); Red Cell Distribution Width 14.9 % (11.5-14.0); White Blood Count 8.2 K/mm3 (4.0-10.5)
[2021-01-03 06:32] LABS: ALBUMIN 3.3 g/dL (3.5-5.0); ANION GAP 13.7 MEQ/L (5-15); BILIRUBIN,TOTAL 0.5 mg/dL (0.2-1.3); Calcium 8.2 mg/dL (8.4-10.2); Creatinine 1 2.42 mg/dL (0.52-1.04); EST GLOMERULAR FILTRATION RATE 20.7 ML/MIN; MAGNESIUM 1.9 mg/dL (1.6-2.3); Potassium 3.8 mmol/L (3.5-5.1); Total Protein 6.2 g/dL (6.3-8.2)
[2021-01-03] MEDS: DUONEB 0.5-3 MG/3 ml Neb IH SCH ×2 (07:00→19:07)
[2021-01-03] MEDS: ECOTRIN 81 MG PO SCH (08:34)
[2021-01-03] MEDS: NORVASC 5 MG PO SCH (08:35)
[2021-01-03] MEDS: Klor Con 10 MEQ PO SCH (08:35)
[2021-01-03] MEDS: Cordarone 200 MG PO SCH (08:35)
[2021-01-03] MEDS: Lopressor 25MG Tab PO SCH ×2 (08:35→22:16)
[2021-01-03] MEDS: Apresoline 25 MG TABLET PO SCH ×3 (08:36→22:16)
[2021-01-03] MEDS: Pepcid 20 MG VIAL IV SCH ×2 (08:36→22:17)
[2021-01-03] MEDS: Protonix 40MG Tablet PO SCH ×2 (08:36→22:16)
[2021-01-03] MEDS: Lasix 40 MG/4 ML IV SCH ×2 (08:36→10:03)
[2021-01-03] MEDS: SYNTHROID 88 MCG PO SCH (08:39)
[2021-01-03] MEDS: Flonase NASAL NS SCH (08:40)
[2021-01-03] MEDS: TYLENOL 325 MG PO PRN ×3 (09:47→22:16)
[2021-01-03] MEDS: Unasyn 1.5GM Vial*** 1.5 G in Sodium Chloride 100ML MINI-BAG PLUS 100 ML IV SCH ×2 (09:54→22:17)
--- NOTE | 2021-01-03 10:01 | PCM.NOTE ---
Date and Time: 01/03/21958 Subjective Assessment: patient on cpap, had ABG drawn yesterday afternoon apparently due to increasing oxygen requirements. she is tolerating some po, no abd pain or diarrhea. feels as though her breathing is improved Objective Exam General Appearance: no apparent distress, alert Neurologic Exam: alert, cooperative Respiratory Exam: prolonged expirations, crackles/rales (improved), No respiratory distress, No accessory muscle use Cardiovascular Exam: regular rate/rhythm, normal heart sounds Gastrointestinal/Abdomen Exam: soft, No tenderness, No mass Extremity Exam: No pedal edema, No swelling OBJECTIVE DATA Vital Signs: Vital Signs - 24 hr Temp Pulse Resp BP Pulse Ox 01/03/21 07:34 97.8 F 57 L 18 151/65 95 01/03/21 07:09 58 L 18 97 01/03/21 04:00 98.6 F 64 22 130/60 96 01/02/21 23:22 98.6 F 61 22 137/62 96 01/02/21 20:00 97.8 F 71 22 178/79 94 L 01/02/21 19:10 67 24 91 L 01/02/21 16:00 98.6 F 60 16 180/77 95 01/02/21 12:00 98.5 F 62 22 140/69 84 L Pain Assessment - Last Documented Pain Intensity 5 Pain Scale Used 0-10 Pain Scale Intake and Output: Intake & Output 12/31/20 01/01/21 01/02/21 01/03/21 11:59 11:59 11:59 11:59 Intake Total 2423 3091 1355 Output Total 400 2500 900 Balance 2022 591 455 Weight 60.781 kg 61.9 kg 65 kg 65.2 kg Lab Results: Lab Results-Last 24 Hours 01/02/21 01/03/21 01/03/21 Range/Units 13:24 05:05 05:05 WBC 8.2 (4.0-10.5) K/mm3 RBC 2.66 L (4.1-5.4) M/mm3 Hgb 7.6 L (12.0-16.0) gm/dl Hct 24.9 L (35-47) % MCV 93.6 (78-100) fl MCH 28.6 (26-32) pg MCHC 30.5 L (32-36) g/dl RDW 14.9 H (11.5-14.0) % Plt Count 283 (150-450) K/mm3 MPV 9.4 (7.5-11.0) fl Gran % 75.5 H (36.0-66.0) % Eos # (Auto) 0.33 (0-0.5) Absolute Lymphs (auto) 0.84 L (1.0-4.6) Absolute Monos (auto) 0.80 (0.0-1.3) Lymphocytes % 10.3 L (24.0-44.0) % Monocytes % 9.8 (0.0-12.0) % Eosinophils % 4.0 (0.00-5.0) % Basophils % 0.4 (0.0-0.4) % Absolute Granulocytes 6.16 (1.4-6.9) Basophils # 0.03 (0-0.4) Puncture Site RIGHT BRACHIAL pCO2 37 (35-45) mmHg pO2 58 L (75-100) mmHg Base Excess -4.7 L (-2.0-2.0) O2 Saturation 89.1 L (94-100) g/dF ABG pH 7.35 (7.35-7.45) ABG HCO3 20.4 L (22-28) ABG O2 Sat (Measured) 90.6 L (95-100) % Viraj Test NOT APPLICABLE A-a Gradient 395 a/A Ratio 0.13 Hemoglobin 8.5 Carboxyhemoglobin 1.0 (0.0-6.9) % THgb Methemoglobin 0.7 L (1.4-1.5) % Potassium 4.5 3.8 (3.5-5.1) Temperature 37.0 C POC O2 Flow Rate 70 % Vent Mode CPAP Expiratory BiPAP 12 Sodium 140 (137-145) mmol/L Chloride 105 (98-107) mmol/L Carbon Dioxide 25 (22-30) mmol/L Anion Gap 13.7 (5-15) MEQ/L BUN 24 H (7-17) mg/dL Creatinine 2.42 H (0.52-1.04) mg/dL Estimated GFR 20.7 ML/MIN Glucose 94 (74-106) mg/dL Calcium 8.2 L (8.4-10.2) mg/dL Magnesium 1.9 (1.6-2.3) mg/dL Total Bilirubin 0.50 (0.2-1.3) mg/dL AST 27 (14-36) U/L ALT 25 (0-35) U/L Alkaline Phosphatase 104 (38-126) U/L Serum Total Protein 6.2 L (6.3-8.2) g/dL Albumin 3.3 L (3.5-5.0) g/dL Radiology Exams: Radiology Procedures Category Date Time Status CHEST 1 VIEW (PORTABLE) Routine Exams 01/02/21 08:02 Completed Multi-Disciplinary Progress Notes: Multi-Disciplinary Progress Notes 01/02/21 18:02 Respiratory Note by Maryjane Rivera SPO2 92% ON HOME CPAP 12CM, 12LPM O2. PT DID RECIEVE LASIX, MILD SOB Initialized on 01/02/21 18:02 - END OF NOTE 01/02/21 12:26 Respiratory Note by Maryjane Rivera 1135 spo2 84%on n/c 6lpm. placed on oxymask 10lpm spo2 85% pt placed on home c pap 10lpm at 12cm , spo2 87%. will continue to monitor and adjust as needed. RN notified Initialized on 01/02/21 12:26 - END OF NOTE Assessment/Plan (1) Colitis Current Visit: Yes Status: Acute Assessment & Plan: clinically improved, tolerating some po Code(s): K52.9 - NONINFECTIVE GASTROENTERITIS AND COLITIS, UNSPECIFIED (2) CHF, acute on chronic Current Visit: Yes Status: Acute Assessment & Plan: improving on exam, decrease lasix to 40mg daily Code(s): I50.9 - HEART FAILURE, UNSPECIFIED (3) COPD (chronic obstructive pulmonary disease) Current Visit: No Status: Chronic
[2021-01-03] MEDS: XARELTO 10 MG TABLET PO SCH (17:41)
[2021-01-03] MEDS: ZOCOR 20MG PO SCH (22:15)
[2021-01-04 05:18] LABS: Absolute Neutrophil Ct (ANC) 6.05 (1.4-6.9); BASOPHIL % 0.3 % (0.0-0.4); Basophil (Absolute #) 0.02 (0-0.4); Eosinophil % 5.8 % (0.00-5.0); Eosinophil (Absolute #) 0.46 (0-0.5); Hematocrit 24.1 % (35-47); Hemoglobin 7.4 gm/dl (12.0-16.0); Lymphocyte (Absolute #) 0.69 (1.0-4.6); Lymphocytes % 8.6 % (24.0-44.0); Mean Cell Volume 92.3 fl (78-100); Mean Corpuscular Hemoglobin 28.4 pg (26-32); Mean Corpuscular Hgb Concent. 30.7 g/dl (32-36); Monocyte (Absolute #) 0.76 (0.0-1.3); Monocytes % 9.5 % (0.0-12.0); Neutrophil % 75.8 % (36.0-66.0); Platelet Count 295 K/mm3 (150-450); Red Blood Count 2.61 M/mm3 (4.1-5.4); Red Cell Distribution Width 14.8 % (11.5-14.0)
[2021-01-04 06:27] LABS: ANION GAP 11.9 MEQ/L (5-15); Calcium 8.6 mg/dL (8.4-10.2); Creatinine 1 2.39 mg/dL (0.52-1.04); Potassium 3.8 mmol/L (3.5-5.1)
[2021-01-04] MEDS: DUONEB 0.5-3 MG/3 ml Neb IH SCH ×2 (06:49→18:50)
--- NOTE | 2021-01-04 08:58 | PCM.NOTE ---
Date and Time: 01/04/21855 Subjective Assessment: patient c/o poor appetite and nausea, hasn't had a bowel movement in the last few days and feels constipated, still has some cough, breathing is stable Objective Exam General Appearance: no apparent distress, alert Neurologic Exam: alert, oriented x 3, cooperative, normal mood/affect, nml cerebellar function, sensation nml, No motor deficits Skin Exam: normal color, warm, dry Eye Exam: PERRL, EOMI, eyes nml inspection Ears, Nose, Throat Exam: normal ENT inspection, pharynx normal, moist mucous membranes Neck Exam: normal inspection, non-tender, supple, full range of motion Respiratory Exam: normal breath sounds, crackles/rales (right), No respiratory distress Cardiovascular Exam: regular rate/rhythm, normal heart sounds Gastrointestinal/Abdomen Exam: soft, normal bowel sounds, No tenderness, No mass Extremity Exam: normal inspection, normal range of motion Back Exam: normal inspection, normal range of motion, No CVA tenderness, No vertebral tenderness Pelvic Exam: deferred Rectal Exam: deferred OBJECTIVE DATA Vital Signs: Vital Signs - 24 hr Temp Pulse Resp BP Pulse Ox 01/04/21 07:09 98.2 F 61 18 152/66 96 01/04/21 06:49 61 20 96 01/04/21 04:00 97.9 F 67 17 125/58 92 L 01/03/21 23:59 98.7 F 69 18 140/63 92 L 01/03/21 19:57 98.0 F 68 19 161/72 96 01/03/21 19:07 79 18 96 01/03/21 16:00 97.9 F 68 18 136/63 93 L 01/03/21 12:00 97.9 F 64 16 161/69 94 L Pain Assessment - Last Documented Pain Intensity 0 Pain Scale Used FLACC Intake and Output: Intake & Output 01/01/21 01/02/21 01/03/21 01/04/21 11:59 11:59 11:59 11:59 Intake Total 2423 3091 1355 759 Output Total 400 2500 900 1550 Balance 2022 591 173 -791 Weight 61.9 kg 65 kg 65.2 kg 61.4 kg Lab Results: Lab Results-Last 24 Hours 01/04/21 01/04/21 Range/Units 05:12 05:12 WBC 8.0 (4.0-10.5) K/mm3 RBC 2.61 L (4.1-5.4) M/mm3 Hgb 7.4 L (12.0-16.0) gm/dl Hct 24.1 L (35-47) % MCV 92.3 (78-100) fl MCH 28.4 (26-32) pg MCHC 30.7 L (32-36) g/dl RDW 14.8 H (11.5-14.0) % Plt Count 295 (150-450) K/mm3 MPV 9.0 (7.5-11.0) fl Gran % 75.8 H (36.0-66.0) % Eos # (Auto) 0.46 (0-0.5) Absolute Lymphs (auto) 0.69 L (1.0-4.6) Absolute Monos (auto) 0.76 (0.0-1.3) Lymphocytes % 8.6 L (24.0-44.0) % Monocytes % 9.5 (0.0-12.0) % Eosinophils % 5.8 H (0.00-5.0) % Basophils % 0.3 (0.0-0.4) % Absolute Granulocytes 6.05 (1.4-6.9) Basophils # 0.02 (0-0.4) Sodium 139 (137-145) mmol/L Potassium 3.8 (3.5-5.1) mmol/L Chloride 104 (98-107) mmol/L Carbon Dioxide 27 (22-30) mmol/L Anion Gap 11.9 (5-15) MEQ/L BUN 25 H (7-17) mg/dL Creatinine 2.39 H (0.52-1.04) mg/dL Estimated GFR 21.0 ML/MIN Glucose 89 (74-106) mg/dL Calcium 8.6 (8.4-10.2) mg/dL NT-Pro-B Natriuret Pep 02779 H (0-1800) pg/mL Radiology Exams: Radiology Procedures Category Date Time Status CHEST 1 VIEW (PORTABLE) Routine Exams 01/02/21 08:02 Completed Multi-Disciplinary Progress Notes: Multi-Disciplinary Progress Notes 01/03/21 14:02 Case Management Note by Alyssia Hamilton INDEPENDENT WITH ALL ADL'S. PLANS TO RETURN HOME TO PRE EPISODIC LEVEL OF FNX. CAN ASSIST IF NEEDED. Initialized on 01/03/21 14:02 - END OF NOTE Assessment/Plan (1) Colitis Current Visit: Yes Status: Acute Assessment & Plan: improved, will give lactulose today Code(s): K52.9 - NONINFECTIVE GASTROENTERITIS AND COLITIS, UNSPECIFIED (2) CHF, acute on chronic Current Visit: Yes Status: Acute Assessment & Plan: crackles on right, ?organizing pneumonia. repeat chest xray, she is receiving unasyn Code(s): I50.9 - HEART FAILURE, UNSPECIFIED (3) COPD (chronic obstructive pulmonary disease) Current Visit: No Status: Chronic
[2021-01-04] MEDS ORDERED: LACTULOSE 20 GM/30ML UD CUP PO ONE (08:59)
[2021-01-04] MEDS: Flonase NASAL NS SCH (09:36)
[2021-01-04] MEDS: ECOTRIN 81 MG PO SCH (09:36)
[2021-01-04] MEDS: Apresoline 25 MG TABLET PO SCH ×3 (09:37→21:20)
[2021-01-04] MEDS: NORVASC 5 MG PO SCH (09:37)
[2021-01-04] MEDS: Lopressor 25MG Tab PO SCH ×2 (09:37→21:20)
[2021-01-04] MEDS: Klor Con 10 MEQ PO SCH (09:38)
[2021-01-04] MEDS: Protonix 40MG Tablet PO SCH ×2 (09:38→21:20)
[2021-01-04] MEDS: Pepcid 20 MG VIAL IV SCH ×2 (09:40→21:20)
[2021-01-04] MEDS: SYNTHROID 88 MCG PO SCH (09:40)
[2021-01-04] MEDS: Zofran 4 MG/2 ML VIAL IV PRN (09:41)
[2021-01-04] MEDS: Lasix 40 MG/4 ML IV SCH (09:41)
--- NOTE | 2021-01-04 10:08 | XRAY ---
Indication: CHF. Comparison: January 02, 2021. Portable chest demonstrates moderate clearing of previous right lung interstitial alveolar opacities with minimal residual and resolved interstitial edema. Heart not enlarged with stable left mid lung calcified granuloma. No new cardiopulmonary abnormalities.
[2021-01-04] MEDS: Cordarone 200 MG PO SCH (10:16)
[2021-01-04] MEDS: Unasyn 1.5GM Vial*** 1.5 G in Sodium Chloride 100ML MINI-BAG PLUS 100 ML IV SCH ×2 (10:17→21:20)
[2021-01-04] MEDS: XARELTO 10 MG TABLET PO SCH (17:13)
[2021-01-04] MEDS: ZOCOR 20MG PO SCH (21:20)
[2021-01-05 05:47] LABS: Absolute Neutrophil Ct (ANC) 5.91 (1.4-6.9); BASOPHIL % 0.5 % (0.0-0.4); Basophil (Absolute #) 0.04 (0-0.4); Eosinophil % 7.2 % (0.00-5.0); Hemoglobin 7.6 gm/dl (12.0-16.0); Lymphocyte (Absolute #) 0.89 (1.0-4.6); Lymphocytes % 10.7 % (24.0-44.0); Mean Cell Volume 91.6 fl (78-100); Mean Corpuscular Hemoglobin 27.8 pg (26-32); Mean Corpuscular Hgb Concent. 30.4 g/dl (32-36); Mean Platelet Volume 9.2 fl (7.5-11.0); Monocyte (Absolute #) 0.85 (0.0-1.3); Monocytes % 10.3 % (0.0-12.0); Neutrophil % 71.3 % (36.0-66.0); Platelet Count 376 K/mm3 (150-450); Red Blood Count 2.73 M/mm3 (4.1-5.4); Red Cell Distribution Width 14.8 % (11.5-14.0); White Blood Count 8.3 K/mm3 (4.0-10.5)
[2021-01-05 07:35] VITALS: BP 132/60
[2021-01-05] MEDS: DUONEB 0.5-3 MG/3 ml Neb IH SCH (07:46)
[2021-01-05 07:55] VITALS: PULSE 62; O2SAT 93
[2021-01-05 08:14] LABS: ANION GAP 12.5 MEQ/L (5-15); Creatinine 1 2.49 mg/dL (0.52-1.04); Potassium 3.8 mmol/L (3.5-5.1)
--- NOTE | 2021-01-05 08:20 | PCM.DS ---
Discharge Summary Date of Admission: 12/31/20 15:52 Admitting Physician: GINGER SHIPMAN Primary Care Provider: PRANAV HELM Allergies Allergies No Known Drug Allergies Allergy (Verified 12/31/20 10:57) Hospital Summary - Hospital Course Hospital Course: patient admitted with abd pain and diarrhea, treated for colitis although nothing acute on ct overread. she is tolerating po, required some diuresis but now back to her baseline and feels well. oxygen sats are stable on 1 L NC, has oxygen and equipment at home. - Vitals & Intake/Output Vital Signs: Vital Signs Temperature 98.8 F 01/05/21 07:35 Pulse Rate 62 01/05/21 07:46 Respiratory Rate 16 01/05/21 07:46 Blood Pressure 132/60 01/05/21 07:35 O2 Sat by Pulse Oximetry 93 L 01/05/21 07:46 Intake & Output: Intake & Output 01/02/21 01/03/21 01/04/21 01/05/21 11:59 11:59 11:59 11:59 Intake Total 3091 1355 999 480 Output Total 2500 900 1550 Balance 591 455 -551 480 Weight 65 kg 65.2 kg 61.4 kg 61.6 kg - Lab Result Diagrams: 01/05/21 04:48 01/05/21 04:48 Lab Results-Last 24 Hrs: Lab Results-Last 24 Hours 01/05/21 01/05/21 Range/Units 04:48 04:48 WBC 8.3 (4.0-10.5) K/mm3 RBC 2.73 L (4.1-5.4) M/mm3 Hgb 7.6 L (12.0-16.0) gm/dl Hct 25.0 L (35-47) % MCV 91.6 (78-100) fl MCH 27.8 (26-32) pg MCHC 30.4 L (32-36) g/dl RDW 14.8 H (11.5-14.0) % Plt Count 376 (150-450) K/mm3 MPV 9.2 (7.5-11.0) fl Gran % 71.3 H (36.0-66.0) % Eos # (Auto) 0.60 H (0-0.5) Absolute Lymphs (auto) 0.89 L (1.0-4.6) Absolute Monos (auto) 0.85 (0.0-1.3) Lymphocytes % 10.7 L (24.0-44.0) % Monocytes % 10.3 (0.0-12.0) % Eosinophils % 7.2 H (0.00-5.0) % Basophils % 0.5 (0.0-0.4) % Absolute Granulocytes 5.91 (1.4-6.9) Basophils # 0.04 (0-0.4) Sodium 139 (137-145) mmol/L Potassium 3.8 (3.5-5.1) mmol/L Chloride 103 (98-107) mmol/L Carbon Dioxide 27 (22-30) mmol/L Anion Gap 12.5 (5-15) MEQ/L BUN 27 H (7-17) mg/dL Creatinine 2.49 H (0.52-1.04) mg/dL Estimated GFR 20.0 ML/MIN Glucose 90 (74-106) mg/dL Calcium 9.0 (8.4-10.2) mg/dL - Radiology Exams Ordered Rad Exams-Entire Visit: Radiology Procedures Category Date Time Status CHEST 1 VIEW (PORTABLE) Routine Exams 01/04/21 08:59 Completed - Procedures and Test Procedures and Tests throughout Hospitalization: Therapy Orders & Screens 12/31/20 18:53 Respiratory Therapy Assessment DAILY Comment: Diagnosis: Colitis 01/01/21 19:15 EKG STAT Comment: Diagnosis: diaphoretic 01/01/21 19:55 Oxygen Nasal Cannula 2 lpm Comment: Diagnosis: diaphoretic Discharge Exam General Appearance: no apparent distress, alert Neurologic Exam: alert, oriented x 3, cooperative, normal mood/affect, nml cerebellar function, sensation nml, No motor deficits Respiratory Exam: normal breath sounds, lungs clear, No respiratory distress Cardiovascular Exam: regular rate/rhythm, normal heart sounds Gastrointestinal/Abdomen Exam: soft, No tenderness, No mass Extremity Exam: normal inspection, normal range of motion Final Diagnosis/Problem List - Final Discharge Diagnosis/Problem (1) Colitis Current Visit: Yes Status: Acute Assessment & Plan: resolved, no obvious pathogen and has been on 5 days of therapy here at the hospital, no further abx required upon discharge Code(s): K52.9 - NONINFECTIVE GASTROENTERITIS AND COLITIS, UNSPECIFIED (2) CHF, acute on chronic Current Visit: Yes Status: Acute Assessment & Plan: currently euvolemic at baseline. Code(s): I50.9 - HEART FAILURE, UNSPECIFIED (3) COPD (chronic obstructive pulmonary disease) Current Visit: No Status: Chronic - Discharge Disposition: Home, Self-Care Condition: Stable Prescriptions: Continue Atorvastatin Calcium 80 mg PO HS Levothyroxine Sodium 88 Mcg [Synthroid 88 Mcg] 88 mcg PO DAILY Aspirin 81 mg PO DAILY #0 Ezetimibe 10 mg [Zetia 10 MG] 10 mg PO HS PANTOPRAZOLE 40 mg Tablet [Protonix 40MG Tablet] 40 mg PO BID Metoprolol Tartrate 25 mg PO BID Steward-3 Fatty Acids/Fish Oil [Fish Oil 1,000 mg Capsule] 1 tab PO BID Hydralazine HCl 50 mg PO TID PRN Alirocumab [Praluent Pen] 75 mg SQ UD Potassium Chloride 10 Meq Tab* [Klor Con 10 MEQ] 20 meq PO DAILY Polyethylene Glycol 3350 [Miralax] 17 gm PO DAILY PRN PRN PRN Reason: Constipation Ferrous Sulfate [Iron] 65 mg PO DAILY Bumetanide 1 mg [Bumex 1 mg] 0.5 mg PO DAILY Amiodarone HCl 200 mg PO DAILY Rivaroxaban [Xarelto] 20 mg PO DAILY Amlodipine Besylate [Norvasc] 2.5 mg PO DAILY Follow up with: PRANAV HELM MD [Primary Care Provider] - 1 Week
[2021-01-05] MEDS: Klor Con 10 MEQ PO SCH (08:53)
[2021-01-05] MEDS: NORVASC 5 MG PO SCH (08:54)
[2021-01-05] MEDS: Apresoline 25 MG TABLET PO SCH (08:54)
[2021-01-05] MEDS: Protonix 40MG Tablet PO SCH (08:54)
[2021-01-05] MEDS: Lopressor 25MG Tab PO SCH (08:55)
[2021-01-05] MEDS: ECOTRIN 81 MG PO SCH (08:55)
[2021-01-05] MEDS: Cordarone 200 MG PO SCH (08:56)
[2021-01-05] MEDS: Flonase NASAL NS SCH (08:56)
[2021-01-05] MEDS: SYNTHROID 88 MCG PO SCH (08:57)
[2021-01-05] MEDS: Pepcid 20 MG VIAL IV SCH (08:58)
[2021-01-05] MEDS: Lasix 40 MG/4 ML IV SCH (08:59)
[2021-01-05] MEDS: Unasyn 1.5GM Vial*** 1.5 G in Sodium Chloride 100ML MINI-BAG PLUS 100 ML IV SCH (08:59)
== END 2021-01-05 09:50 | disposition home or self-care (01) ==
LOC: ED 10:37 → MED SURG 15:52
PROVIDERS: ADMIT Family Medicine; ATTEND Family Medicine
DX: K52.9 Noninfective gastroenteritis and colitis, unspecified (principal); R10.9 Unspecified abdominal pain; I11.0 Hypertensive heart disease with heart failure; I50.9 Heart failure, unspecified; J44.9 Chronic obstructive pulmonary disease, unspecified; Z79.899 Other long term (current) drug therapy; G47.33 Obstructive sleep apnea (adult) (pediatric); E78.5 Hyperlipidemia, unspecified; E03.9 Hypothyroidism, unspecified; M79.601 Pain in right arm; E78.00 Pure hypercholesterolemia, unspecified; Z20.828 Contact with and (suspected) exposure to other viral communicable diseases
CPT/HCPCS: 0241U; 36000; 36415; 36600; 71045; 74176; 80048; 80053; 81001; 82150; 82375; 82803; 83605; 83690; 83735; 83880; 84443; 84484; 85025; 93005; 93041; 94640; 94760; 96360; 96361; 96365; 96374; 99285; G0378; J0295; J1940; J2270; J2405; A9270-GY

== ENCOUNTER 2021-06-13 13:31 | Observation (INO) | payer MEDICARE ==
[2021-06-13] MEDS ORDERED: Sodium Chloride 0.9% 1000 ML 1,000 ML IV STA (13:46)
--- NOTE | 2021-06-13 13:50 | ERPHSYRPT ---
- History of Present Illness Time Seen by Provider: 06/13/21 13:50 Historian: patient Exam Limitations: no limitations Physician History: Patient is a 76-year-old female with a history of GI bleed and symptomatic anemia presents today with the same. Patient states she has been having bloody stools and dark melanotic stools as well. Patient is on Xarelto for A. fib. D uring patient's last bout of GI bleed she was taken off of Xarelto for 1 week. Symptoms resolved. Patient restarted her Xarelto and her symptoms reoccurred. Patient complains of mild periumbilical pain. Pain rated 5 out of 10. No associated trauma. No fever. No nausea or vomiting. Patient has needed blood transfusion in the past for this anemia. [facility]'s brine process [facility] Patient states that she requires transfer she prefers [facility]. Patient voices no other complaints concerns at this time. at bedside Timing/Duration: today Activities at Onset: none Quality: aching Abdominal Pain Onset Location: periumbilical Pain Radiation: no radiation Severity of Pain-Max: moderate Severity of Pain-Current: mild Modifying Factors: Improves With: nothing Associated Symptoms: fatigue, shortness of breath Previous symptoms: same symptoms as today Allergies/Adverse Reactions: No Known Drug Allergies Allergy (Verified 06/13/21 13:50) Home Medications: Atorvastatin Calcium 80 mg PO HS 01/06/18 [History] Levothyroxine Sodium 88 Mcg [Synthroid 88 Mcg] 88 mcg PO DAILY 01/06/18 [History] Ezetimibe 10 mg [Zetia 10 MG] 10 mg PO HS 04/02/18 [History] Metoprolol Tartrate 25 mg PO BID 04/02/18 [History] PANTOPRAZOLE 40 mg Tablet [Protonix 40MG Tablet] 40 mg PO BID 04/02/18 [History] Alirocumab [Praluent Pen] 75 mg SQ UD 11/23/19 [History] Hydralazine HCl 100 mg PO TID 11/23/19 [History] Hastings-3 Fatty Acids/Fish Oil [Fish Oil 1,000 mg Capsule] 1 tab PO BID 11/23/19 [History] Amiodarone HCl 200 mg PO DAILY 11/27/20 [History] Bumetanide 1 mg [Bumex 1 mg] 0.5 mg PO DAILY 11/27/20 [History] Ferrous Sulfate [Iron] 65 mg PO DAILY 11/27/20 [History] Polyethylene Glycol 3350 [Miralax] 17 gm PO DAILY PRN PRN 11/27/20 [History] Potassium Chloride 10 Meq Tab* [Klor Con 10 MEQ] 20 meq PO DAILY 11/27/20 [History] Rivaroxaban [Xarelto] 20 mg PO DAILY 11/27/20 [History] Amlodipine Besylate [Norvasc] 2.5 mg PO DAILY 12/31/20 [History] Hx Tetanus, Diphtheria Vaccination/Date Given: Yes Hx Influenza Vaccination/Date Given: No Hx Pneumococcal Vaccination/Date Given: Yes Travel Risk - Vaccine Status Have you recieved a Covid-19 vaccination: Yes [address] Department Dispatcher: Moderna - Vaccination Dates Date of 2cond Vaccination (if applicable): 10/30/2020 - Review of Systems Constitutional: No Symptoms, No Fever, No Chills Eyes: No Symptoms Ears, Nose, & Throat: No Symptoms Respiratory: No Symptoms, No Cough, No Dyspnea Cardiac: No Symptoms, No Chest Pain, No Edema, No Syncope Abdominal/Gastrointestinal: No Symptoms, No Abdominal Pain, No Nausea, No Vomiting, No Diarrhea Genitourinary Symptoms: No Symptoms, No Dysuria Musculoskeletal: No Symptoms, No Back Pain, No Neck Pain Skin: No Symptoms, No Rash Neurological: No Symptoms, No Dizziness, No Focal Weakness, No Sensory Changes Psychological: No Symptoms Endocrine: No Symptoms Hematologic/Lymphatic: No Symptoms Immunological/Allergic: No Symptoms All Other Systems: Reviewed and Negative - Past Medical History Pertinent Past Medical History: Yes Neurological History: Stroke ENT History: No Pertinent History Cardiac History: Arrhythmia, High Cholesterol, Hypertension Respiratory History: CHF, COPD Endocrine Medical History: Hypothyroidism, Liver Disease Musculoskeletal History: No Pertinent History GI Medical History: GERD History: No Pertinent History Psycho-Social History: No Pertinent History Female Reproductive Disorders: Cervical Cancer Other Medical History: SX HX: HYSTERECTOMY WITH ONE OVARY REMOVAL, MULTIPLE HERNIA REPAIR,. PMHX: TEMPORAL ARTERITIS, CVA X 2 2013, 2015, CHRONIC HYPOXEMIC RESPIRATORY FAILURE, - Past Surgical History Past Surgical History: Yes Neuro Surgical History: No Pertinent History Cardiac: Other Respiratory: No Pertinent History Gastrointestinal: Appendectomy, Cholecystectomy Genitourinary: No Pertinent History Musculoskeletal: No Pertinent History Female Surgical History: Hysterectomy Other Surgical History: AAA repair - Social History Smoking Status: Current every day smoker How long have you smoked: 50 years Exposure to second hand smoke: Yes Drug Use: none Patient Lives Alone: No - Nursing Vital Signs Nursing Vital Signs: Initial Vital Signs Temperature 97.6 F 06/13/21 13:44 Pulse Rate 53 L 06/13/21 13:44 Respiratory Rate 24 06/13/21 13:44 Blood Pressure 137/46 06/13/21 13:44 O2 Sat by Pulse Oximetry 99 06/13/21 13:44 Pain Scale Pain Intensity 0 - Physical Exam General Appearance: no apparent distress, alert, other (Pale appearing) Eye Exam: PERRL/EOMI, eyes nml inspection Ears, Nose, Throat Exam: normal ENT inspection, pharynx normal, moist mucous membranes Neck Exam: normal inspection, non-tender, supple, full range of motion Respiratory Exam: normal breath sounds, lungs clear, airway intact, No respiratory distress Cardiovascular Exam: regular rate/rhythm, normal heart sounds, normal peripheral pulses Gastrointestinal/Abdomen Exam: soft, No tenderness, No mass Pelvic Exam: not done Back Exam: normal inspection, normal range of motion, No CVA tenderness, No vertebral tenderness Extremity Exam: normal inspection, normal range of motion, pelvis stable Neurologic Exam: alert, oriented x 3, cooperative, normal mood/affect, nml cerebellar function, sensation nml, No motor deficits Skin Exam: normal color, warm, dry Lymphatic Exam: No adenopathy SpO2 Interpretation: normal SpO2: 99 O2 Delivery: Room Air - Course Nursing assessment & vital signs reviewed: Yes EKG Interpreted by Me: RATE (49), Sinus Rhythm, NORMAL AXIS, NORMAL INTERVALS - CT Exams Abdomen/Pelvis CT Interpretation: Tele-radiologist Report (Small hiatal hernia. Cecal lipoma and scattered descending sigmoid diverticulosis. Stable bilateral renal cysts 7.6 cm right adnexal cystic mass. Vascular calcifications and a 4 cm infrarenal AAA. Osteopenia degenerative arthritis.) Ordered Tests: Active Orders 24 hr Category Date Time Status EKG-ER Only STAT Care 06/13/21 13:46 Active IV Insertion STAT Care 06/13/21 13:46 Active ABDOMEN AND PELVIS W/0 CONTRAS [CT] Stat Exams 06/13/21 13:47 Completed CBC W DIFF Stat Lab 06/13/21 13:52 Completed CMP Stat Lab 06/13/21 13:52 Completed HEMOGLOBIN AND HEMATOCRIT Stat Lab 06/13/21 21:38 Completed LIPASE Stat Lab 06/13/21 13:52 Completed MAG [MAGNESIUM] Stat Lab 06/13/21 15:18 Completed Manual Differential NC Stat Lab 06/13/21 13:52 Completed TROPONIN Q3H Lab 06/13/21 13:52 Completed TROPONIN Q3H Lab 06/13/21 17:00 Completed Urine Triage Profile Stat Lab 06/13/21 13:52 Completed Transfer Order Routine Transfer 06/14/21 Ordered Medication Summary Generic Name Dose Route Start Last Admin Trade Name Freq PRN Reason Stop Dose Admin Pantoprazole Sodium 80 mg/ 500 mls @ 50 mls/hr 06/13/21 15:15 06/13/21 16:45 Sodium Chloride IV 07/13/21 15:14 50 mls/hr .Q10H JIM 50 mls/hr Administration Discontinued Medications Generic Name Dose Route Start Last Admin Trade Name Freq PRN Reason Stop Dose Admin Sodium Chloride 1,000 mls @ 999 mls/hr 06/13/21 13:46 06/13/21 16:26 Sodium Chloride 0.9% 1000 Ml IV 06/13/21 14:46 Infused .Q1H1M STA Infusion Sodium Chloride Confirm 06/13/21 13:53 Sodium Chloride 0.9% 1000 Ml Administered 06/13/21 13:54 Dose 1,000 mls @ ud .ROUTE .STK-MED ONE Lab/Rad Data: Laboratory Result Diagrams 06/13/21 21:38 06/13/21 13:52 Laboratory Results 06/14/21 06/13/21 06/13/21 Range/Units 01:43 21:38 17:00 WBC (4.0-10.5) K/mm3 RBC (4.1-5.4) M/mm3 Hgb 6.1 L* (12.0-16.0) gm/dl Hct 20.3 L (35-47) % MCV (78-100) fl MCH (26-32) pg MCHC (32-36) g/dl RDW (11.5-14.0) % Plt Count (150-450) K/mm3 MPV (7.5-11.0) fl Gran % (36.0-66.0) % Eos # (Auto) (0-0.5) Absolute Lymphs (auto) (1.0-4.6) Absolute Monos (auto) (0.0-1.3) Lymphocytes % (24.0-44.0) % Monocytes % (0.0-12.0) % Eosinophils % (0.00-5.0) % Basophils % (0.0-0.4) % Absolute Granulocytes (1.4-6.9) Segmented Neutrophils (36.0-66.0) % Band Neutrophils (0.0-2.0) % Lymphocytes (Manual) (24-44) % Monocytes (Manual) (0.0-12.0) % Eosinophils (Manual) (0.00-3.0) % Basophils # (0-0.4) Hypochromia Platelet Estimate (NORMAL) RBC Morphology Anisocytosis Sodium (137-145) mmol/L Potassium (3.5-5.1) mmol/L Chloride (98-107) mmol/L Carbon Dioxide (22-30) mmol/L Anion Gap (5-15) MEQ/L BUN (7-17) mg/dL Creatinine (0.52-1.04) mg/dL Estimated GFR ML/MIN Glucose (74-106) mg/dL Calcium (8.4-10.2) mg/dL Magnesium (1.6-2.3) mg/dL Total Bilirubin (0.2-1.3) mg/dL AST (14-36) U/L ALT (0-35) U/L Alkaline Phosphatase (38-126) U/L Troponin I < 0.012 (0.000-0.034) ng/mL Serum Total Protein (6.3-8.2) g/dL Albumin (3.5-5.0) g/dL Lipase (23-300) U/L Urine Opiates Level (NEGATIVE) Ur Methadone (NEGATIVE) Urine Barbiturates (NEGATIVE) Ur Phencyclidine (PCP) (NEGATIVE) Urine Amphetamine (NEGATIVE) U Benzodiazepine Level (NEGATIVE) Urine Cocaine (NEGATIVE) Urine Marijuana (THC) (NEGATIVE) SARS-CoV-2 (PCR) NEGATIVE (NEGATIVE) ABO Group Rh Factor Antibody Screen (NEGATIVE) 06/13/21 06/13/21 06/13/21 Range/Units 15:18 14:00 13:52 WBC (4.0-10.5) K/mm3 RBC (4.1-5.4) M/mm3 Hgb (12.0-16.0) gm/dl Hct (35-47) % MCV (78-100) fl MCH (26-32) pg MCHC (32-36) g/dl RDW (11.5-14.0) % Plt Count (150-450) K/mm3 MPV (7.5-11.0) fl Gran % (36.0-66.0) % Eos # (Auto) (0-0.5) Absolute Lymphs (auto) (1.0-4.6) Absolute Monos (auto) (0.0-1.3) Lymphocytes % (24.0-44.0) % Monocytes % (0.0-12.0) % Eosinophils % (0.00-5.0) % Basophils % (0.0-0.4) % Absolute Granulocytes (1.4-6.9) Segmented Neutrophils (36.0-66.0) % Band Neutrophils (0.0-2.0) % Lymphocytes (Manual) (24-44) % Monocytes (Manual) (0.0-12.0) % Eosinophils (Manual) (0.00-3.0) % Basophils # (0-0.4) Hypochromia Platelet Estimate (NORMAL) RBC Morphology Anisocytosis Sodium (137-145) mmol/L Potassium (3.5-5.1) mmol/L Chloride (98-107) mmol/L Carbon Dioxide (22-30) mmol/L Anion Gap (5-15) MEQ/L BUN (7-17) mg/dL Creatinine (0.52-1.04) mg/dL Estimated GFR ML/MIN Glucose (74-106) mg/dL Calcium (8.4-10.2) mg/dL Magnesium 2.4 H (1.6-2.3) mg/dL Total Bilirubin (0.2-1.3) mg/dL AST (14-36) U/L ALT (0-35) U/L Alkaline Phosphatase (38-126) U/L Troponin I < 0.012 (0.000-0.034) ng/mL Serum Total Protein (6.3-8.2) g/dL Albumin (3.5-5.0) g/dL Lipase (23-300) U/L Urine Opiates Level (NEGATIVE) Ur Methadone (NEGATIVE) Urine Barbiturates (NEGATIVE) Ur Phencyclidine (PCP) (NEGATIVE) Urine Amphetamine (NEGATIVE) U Benzodiazepine Level (NEGATIVE) Urine Cocaine (NEGATIVE) Urine Marijuana (THC) (NEGATIVE) SARS-CoV-2 (PCR) (NEGATIVE) ABO Group A Rh Factor POSITIVE Antibody Screen POSITIVE (NEGATIVE) 06/13/21 06/13/21 06/13/21 Range/Units 13:52 13:52 13:52 WBC 7.7 (4.0-10.5) K/mm3 RBC 2.18 L (4.1-5.4) M/mm3 Hgb 6.6 L* (12.0-16.0) gm/dl Hct 21.7 L (35-47) % MCV 99.5 (78-100) fl MCH 30.3 (26-32) pg MCHC 30.4 L (32-36) g/dl RDW 17.6 H (11.5-14.0) % Plt Count 326 (150-450) K/mm3 MPV 9.3 (7.5-11.0) fl Gran % 68.5 H (36.0-66.0) % Eos # (Auto) 0.34 (0-0.5) Absolute Lymphs (auto) 1.29 (1.0-4.6) Absolute Monos (auto) 0.76 (0.0-1.3) Lymphocytes % 16.7 L (24.0-44.0) % Monocytes % 9.8 (0.0-12.0) % Eosinophils % 4.4 (0.00-5.0) % Basophils % 0.6 (0.0-0.4) % Absolute Granulocytes 5.28 (1.4-6.9) Segmented Neutrophils 75 H (36.0-66.0) % Band Neutrophils 1 (0.0-2.0) % Lymphocytes (Manual) 15 L (24-44) % Monocytes (Manual) 3 (0.0-12.0) % Eosinophils (Manual) 6 H (0.00-3.0) % Basophils # 0.05 (0-0.4) Hypochromia 1+ Platelet Estimate NORMAL (NORMAL) RBC Morphology ABNORMAL Anisocytosis 1+ Sodium 138 (137-145) mmol/L Potassium 4.9 (3.5-5.1) mmol/L Chloride 108 H (98-107) mmol/L Carbon Dioxide 21 L (22-30) mmol/L Anion Gap 13.9 (5-15) MEQ/L BUN 46 H (7-17) mg/dL Creatinine 2.57 H (0.52-1.04) mg/dL Estimated GFR 19.3 ML/MIN Glucose 95 (74-106) mg/dL Calcium 8.4 (8.4-10.2) mg/dL Magnesium (1.6-2.3) mg/dL Total Bilirubin 0.20 (0.2-1.3) mg/dL AST 22 (14-36) U/L ALT 18 (0-35) U/L Alkaline Phosphatase 73 (38-126) U/L Troponin I (0.000-0.034) ng/mL Serum Total Protein 5.9 L (6.3-8.2) g/dL Albumin 3.4 L (3.5-5.0) g/dL Lipase 202 (23-300) U/L Urine Opiates Level NEGATIVE (NEGATIVE) Ur Methadone NEGATIVE (NEGATIVE) Urine Barbiturates NEGATIVE (NEGATIVE) Ur Phencyclidine (PCP) NEGATIVE (NEGATIVE) Urine Amphetamine NEGATIVE (NEGATIVE) U Benzodiazepine Level NEGATIVE (NEGATIVE) Urine Cocaine NEGATIVE (NEGATIVE) Urine Marijuana (THC) NEGATIVE (NEGATIVE) SARS-CoV-2 (PCR) (NEGATIVE) ABO Group Rh Factor Antibody Screen (NEGATIVE) - Progress Progress: improved Progress Note: Patient reassessed. She is stable. Unable to transfuse due to multiple antibodies. I spoke to Dr. Lopez at [facility] who accepts transfer. Plan of care discussed with patient, she agrees to transfer to [facility] for further evaluation and treatment. Portions of this note were created with voice recognition technology. There may be grammatical, spelling, punctuation or sound alike errors 06/13/21 16:00 06/14/21 00:58 We intended to transfuse patient early on however we were advised that it would take 5 to 8 hours to obtain the blood. In that timeframe we expect the patient to be transferred to the blood was not initiated at that point. However [facility] does not have a time at which they would have a bed available. We did do a 6-hour H&H check and hemoglobin dropped approximately half a gram. We will no longer wait for transfer we will initiate transfusion. Patient reassessed. She feels well. No change in her symptomatology. No bloody bowel movements in our E ED.. I discussed the case with Dr. Garcia who advised looking into the possibility of tagged RBC nuclear medicine study to assess for GI bleed. We found out that the technologist would be available on . Dr. Garcia advised admission and to schedule the procedure. We are currently awaiting a Covid test. Patient will be admitted to Dr. Garcia service pending negative Covid study. Patient will be transfused as soon as the blood arrives. Dr. Garcia is covering Dr. Helm. 06/14/21 01:00 06/14/21 02:55 Covid test negative. Patient admitted to Dr. Garcia service. Discussed with : Jennifer Counseled pt/family regarding: lab results, diagnosis, rad results - Departure Departure Disposition: Home Clinical Impression: GI bleed, Symptomatic anemia, CRI (chronic renal insufficiency), Prolonged QT interval, Hiatal hernia, Cecal lipoma, Diverticulosis, Renal cyst, Adnexal mass, 4 cm infrarenal AAA, Osteopenia Condition: Stable Critical Care Time: No Referrals: PRANAV HELM MD [Primary Care Provider] -
[2021-06-13] MEDS ORDERED: Sodium Chloride 0.9% 1000 ML 1,000 ML ONE (13:53)
[2021-06-13 14:21] LABS: Absolute Neutrophil Ct (ANC) 5.28 (1.4-6.9); BASOPHIL % 0.6 % (0.0-0.4); Basophil (Absolute #) 0.05 (0-0.4); Eosinophil % 4.4 % (0.00-5.0); Eosinophil (Absolute #) 0.34 (0-0.5); Hematocrit 21.7 % (35-47); Lymphocyte (Absolute #) 1.29 (1.0-4.6); Lymphocytes % 16.7 % (24.0-44.0); Mean Cell Volume 99.5 fl (78-100); Mean Corpuscular Hemoglobin 30.3 pg (26-32); Mean Corpuscular Hgb Concent. 30.4 g/dl (32-36); Mean Platelet Volume 9.3 fl (7.5-11.0); Monocyte (Absolute #) 0.76 (0.0-1.3); Monocytes % 9.8 % (0.0-12.0); Neutrophil % 68.5 % (36.0-66.0); Platelet Count 326 K/mm3 (150-450); Red Blood Count 2.18 M/mm3 (4.1-5.4); Red Cell Distribution Width 17.6 % (11.5-14.0); White Blood Count 7.7 K/mm3 (4.0-10.5)
[2021-06-13 14:31] LABS: Hemoglobin 6.6 gm/dl (12.0-16.0)
[2021-06-13 14:48] LABS: ALBUMIN 3.4 g/dL (3.5-5.0); ANION GAP 13.9 MEQ/L (5-15); BILIRUBIN,TOTAL 0.2 mg/dL (0.2-1.3); Calcium 8.4 mg/dL (8.4-10.2); Creatinine 1 2.57 mg/dL (0.52-1.04); EST GLOMERULAR FILTRATION RATE 19.3 ML/MIN; Potassium 4.9 mmol/L (3.5-5.1); Total Protein 5.9 g/dL (6.3-8.2)
[2021-06-13 15:04] LABS: Barbiturate,Urine NEGATIVE (NEGATIVE); Benzodiazepine,Urine NEGATIVE (NEGATIVE); Cocaine,Urine NEGATIVE (NEGATIVE); Methadone,Urine NEGATIVE (NEGATIVE); Opiate,Urine NEGATIVE (NEGATIVE); PCP,Urine NEGATIVE (NEGATIVE); THC,Urine NEGATIVE (NEGATIVE)
[2021-06-13 15:07] LABS: ABO TYPING A; RH TYPING POSITIVE
[2021-06-13 15:08] LABS: Antibody Screen POSITIVE (NEGATIVE)
[2021-06-13 15:09] LABS: Amphetamine,Urine NEGATIVE (NEGATIVE)
--- NOTE | 2021-06-13 16:33 | XRAY ---
Indication: Abdomen pain. Blood in stool. Multiple contiguous axial images obtained through the abdomen and pelvis without contrast. Comparison: December 31, 2020. Lung bases again demonstrates bibasilar subsegmental atelectasis/scarring and tiny calcified granulomas. No infiltrate or effusion. Heart is not enlarged. Stable small hiatal hernia. Noncontrasted stomach and bowel loops remain nonobstructed with stable 1.8 cm cecal lipoma and scattered descending/sigmoid diverticulosis. There is now mild diffuse scattered colonic fecal debris throughout. Stable bilateral renal cysts, 7.6 cm right adnexal cystic mass, cholecystectomy, and hysterectomy. No free fluid/air. Remaining liver, pancreas, spleen, adrenal glands, kidneys, ureters, and bladder are unremarkable for noncontrast exam. Stable heavy scattered vascular calcifications with 4 cm infrarenal AAA. Osseous structures intact again with osteopenia, degenerative changes, and minimal levoscoliosis. Intact ventral hernia mesh graft. Impression: 1. New diffuse fecal stasis. 3. Stable cecal lipoma, colonic diverticulosis, 7.6 cm right adnexa cystic mass, arteriosclerotic disease with distal AAA, small hiatal hernia, and chronic bony findings.
[2021-06-13] MEDS: PROTONIX 40 MG IV*** 80 MG in Sodium Chloride 0.9% 500 ML 500 ML IV SCH (16:45)
[2021-06-13 17:12] LABS: BAND 1 % (0.0-2.0); Eosinophil 6 % (0.00-3.0); Lymphocytes 15 % (24-44); Monocyte 3 % (0.0-12.0); Neutrophils 75 % (36.0-66.0); Total Cells Counted 100
[2021-06-13 17:15] LABS: ANISOCYTOSIS 1+; Hypochromia 1+
[2021-06-13 17:16] LABS: Platelet Estimate NORMAL (NORMAL)
[2021-06-13 21:41] LABS: Hematocrit 20.3 % (35-47)
[2021-06-13 22:09] LABS: Hemoglobin 6.1 gm/dl (12.0-16.0)
[2021-06-14] MEDS ORDERED: MORPHINE SULFATE 2 MG INJ IV PRN (03:06)
[2021-06-14] MEDS ORDERED: Zofran 4 MG/2 ML VIAL IV PRN (03:06)
[2021-06-14] MEDS ORDERED: Sodium Chloride 0.9% 500 ML 500 ML IV ONE (03:13)
[2021-06-14] MEDS ORDERED: PROTONIX 40 MG IV IV ONE (03:13)
[2021-06-14] MEDS: PROTONIX 40 MG IV*** 80 MG in Sodium Chloride 0.9% 500 ML 500 ML IV SCH (04:05)
[2021-06-14] MEDS: Sodium Chloride 0.9% 1000 ML 1,000 ML IV SCH ×2 (04:06→13:09)
[2021-06-14 05:28] LABS: Absolute Neutrophil Ct (ANC) 4.94 (1.4-6.9); BASOPHIL % 0.6 % (0.0-0.4); Basophil (Absolute #) 0.04 (0-0.4); Eosinophil % 4.3 % (0.00-5.0); Eosinophil (Absolute #) 0.31 (0-0.5); Hematocrit 19.6 % (35-47); Lymphocyte (Absolute #) 1.15 (1.0-4.6); Mean Cell Volume 100.5 fl (78-100); Mean Corpuscular Hemoglobin 29.2 pg (26-32); Mean Corpuscular Hgb Concent. 29.1 g/dl (32-36); Mean Platelet Volume 9.4 fl (7.5-11.0); Monocyte (Absolute #) 0.73 (0.0-1.3); Monocytes % 10.2 % (0.0-12.0); Neutrophil % 68.9 % (36.0-66.0); Platelet Count 291 K/mm3 (150-450); Red Blood Count 1.95 M/mm3 (4.1-5.4); Red Cell Distribution Width 18.1 % (11.5-14.0); White Blood Count 7.2 K/mm3 (4.0-10.5)
[2021-06-14 05:40] LABS: Hemoglobin 5.7 gm/dl (12.0-16.0)
[2021-06-14 06:04] LABS: ALBUMIN 2.9 g/dL (3.5-5.0); ANION GAP 11.9 MEQ/L (5-15); BILIRUBIN,TOTAL 0.2 mg/dL (0.2-1.3); Calcium 8.3 mg/dL (8.4-10.2); Creatinine 1 2.2 mg/dL (0.52-1.04); EST GLOMERULAR FILTRATION RATE 23.1 ML/MIN; Potassium 4.3 mmol/L (3.5-5.1); Total Protein 5.4 g/dL (6.3-8.2)
[2021-06-14] MEDS ORDERED: Miralax Powder 17GM PACKET PO PRN (09:29)
[2021-06-14] MEDS ORDERED: FEOSOL 325 MG PO SCH (10:00)
[2021-06-14] MEDS ORDERED: SYNTHROID 88 MCG PO SCH (10:00)
[2021-06-14] MEDS ORDERED: Cordarone 200 MG PO SCH (10:00)
[2021-06-14] MEDS ORDERED: Protonix 40MG Tablet PO SCH (10:00)
[2021-06-14] MEDS ORDERED: BUMEX 1 MG PO SCH (10:00)
[2021-06-14 12:12] LABS: AB ID Interp Anti-E
[2021-06-14 12:38] LABS: CROSS MATCH (PRBC) COMPATIBLE (COMPATIBLE)
[2021-06-14] MEDS ORDERED: PROTONIX 40 MG IV*** 80 MG in Sodium Chloride 0.9% 500 ML 500 ML IV SCH (14:00)
[2021-06-14 16:36] VITALS: BP 170/74; PULSE 57; O2SAT 96
[2021-06-14] MEDS ORDERED: Zetia 10 MG PO SCH (22:00)
--- NOTE | 2021-06-15 15:36 | PCM.CONS ---
History of Present Illness - Reason for Consult Chief Complaint: GI bleed Requesting Provider: PRANAV HELM Consulting Provider: DEBBIE TOM MD History of Present Illness: Hx per chart review and d/w pt. pt is unsure of a lot of her history. 76yo known to my practice. has a history of AAA open repair around 2018. hernia repair after that. anemia, GIB with multiple EGD and c scopes within the last year and bleeding scan. apparently no localization of the bleed. represents on xarelto for afib, anemic, has antibodies, no blood in the hospital awaiting transfer to tertiary facility. HDS overnight. AMI improved. denies abdominal pain. no bloody bms since presentation. dose endorse some melena on and off x1week. "Physician History: Patient is a 76-year-old female with a history of GI bleed and symptomatic anemia presents today with the same. Patient states she has been having bloody stools and dark melanotic stools as well. Patient is on Xarelto for A. fib. During patient's last bout of GI bleed she was taken off of Xarelto for 1 week. Symptoms resolved. Patient restarted her Xarelto and her symptoms reoccurred. Patient complains of mild periumbilical pain. Pain rated 5 out of 10. No associated trauma. No fever. No nausea or vomiting. Patient has needed blood transfusion in the past for this anemia. 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 Patient states that she requires transfer she prefers [facility]. Patient voices no other complaints concerns at this time. at bedside Timing/Duration: today Activities at Onset: none Quality: aching Abdominal Pain Onset Location: periumbilical Pain Radiation: no radiation Severity of Pain-Max: moderate Severity of Pain-Current: mild Modifying Factors: Improves With: nothing Associated Symptoms: fatigue, shortness of breath Previous symptoms: same symptoms as today Allergies/Adverse Reactions: No Known Drug Allergies Allergy (Verified 06/13/21 13:50) Home Medications: Atorvastatin Calcium 80 mg PO HS 01/06/18 [History] Levothyroxine Sodium 88 Mcg [Synthroid 88 Mcg] 88 mcg PO DAILY 01/06/18 [ History] Ezetimibe 10 mg [Zetia 10 MG] 10 mg PO HS 04/02/18 [History] Metoprolol Tartrate 25 mg PO BID 04/02/18 [History] PANTOPRAZOLE 40 mg Tablet [Protonix 40MG Tablet] 40 mg PO BID 04/02/18 [History] Alirocumab [Praluent Pen] 75 mg SQ UD 11/23/19 [History] Hydralazine HCl 100 mg PO TID 11/23/19 [History] [place]-3 Fatty Acids/Fish Oil [Fish Oil 1,000 mg Capsule] 1 tab PO BID 11/23/19 [History] Amiodarone HCl 200 mg PO DAILY 11/27/20 [History] Bumetanide 1 mg [Bumex 1 mg] 0.5 mg PO DAILY 11/27/20 [History] Ferrous Sulfate [Iron] 65 mg PO DAILY 11/27/20 [History] Polyethylene Glycol 3350 [Miralax] 17 gm PO DAILY PRN PRN 11/27/20 [History] Potassium Chloride 10 Meq Tab* [Klor Con 10 MEQ] 20 meq PO DAILY 11/27/20 [History] Rivaroxaban [Xarelto] 20 mg PO DAILY 11/27/20 [History] Amlodipine Besylate [Norvasc] 2.5 mg PO DAILY 12/31/20 [History] Hx Tetanus, Diphtheria Vaccination/Date Given: Yes Hx Influenza Vaccination/Date Given: No Hx Pneumococcal Vaccination/Date Given: Yes Travel Risk - Vaccine Status Have you recieved a Covid-19 vaccination: Yes Echocardiographer: Moderna - Vaccination Dates Date of 2cond Vaccination (if applicable): 10/30/2020 - Review of Systems Constitutional: No Symptoms, No Fever, No Chills Eyes: No Symptoms Ears, Nose, & Throat: No Symptoms Respiratory: No Symptoms, No Cough, No Dyspnea Cardiac: No Symptoms, No Chest Pain, No Edema, No Syncope Abdominal/Gastrointestinal: No Symptoms, No Abdominal Pain, No Nausea, No Vomiting, No Diarrhea Genitourinary Symptoms: No Symptoms, No Dysuria Musculoskeletal: No Symptoms, No Back Pain, No Neck Pain Skin: No Symptoms, No Rash Neurological: No Symptoms, No Dizziness, No Focal Weakness, No Sensory Changes Psychological: No Symptoms Endocrine: No Symptoms Hematologic/Lymphatic: No Symptoms Immunological/Allergic: No Symptoms All Other Systems: Reviewed and Negative - Past Medical History Pertinent Past Medical History: Yes Neurological History: Stroke ENT History: No Pertinent History Cardiac History: Arrhythmia, High Cholesterol, Hypertension Respiratory History: CHF, COPD Endocrine Medical History: Hypothyroidism, Liver Disease Musculoskeletal History: No Pertinent History GI Medical History: GERD History: No Pertinent History Psycho-Social History: No Pertinent History Female Reproductive Disorders: Cervical Cancer Other Medical History: SX HX: HYSTERECTOMY WITH ONE OVARY REMOVAL, MULTIPLE HERNIA REPAIR,. PMHX: TEMPORAL ARTERITIS, CVA X 2 2013, 2014, CHRONIC HYPOXEMIC RESPIRATORY FAILURE, - Past Surgical History Past Surgical History: Yes Neuro Surgical History: No Pertinent History Cardiac: Other Respiratory: No Pertinent History Gastrointestinal: Appendectomy, Cholecystectomy Genitourinary: No Pertinent History Musculoskeletal: No Pertinent History Female Surgical History: Hysterectomy Other Surgical History: AAA repair - Social History Smoking Status: Current every day smoker How long have you smoked: 50 years Exposure to second hand smoke: Yes Drug Use: none Patient Lives Alone: No " Medications & Allergies Home Medications: Home Medication List Atorvastatin Calcium 80 mg PO HS 01/06/18 [History Confirmed 06/14/21] Levothyroxine Sodium 88 Mcg [Synthroid 88 Mcg] 88 mcg PO DAILY 01/06/18 [History Confirmed 06/14/21] Ezetimibe 10 mg [Zetia 10 MG] 10 mg PO HS 04/02/18 [History Confirmed 06/14/21] Metoprolol Tartrate 25 mg PO BID 04/02/18 [History Confirmed 06/14/21] PANTOPRAZOLE 40 mg Tablet [Protonix 40MG Tablet] 40 mg PO BID 04/02/18 [History Confirmed 06/14/21] Alirocumab [Praluent Pen] 75 mg SQ UD 11/23/19 [History Confirmed 06/14/21] Hydralazine HCl 100 mg PO TID 11/23/19 [History Confirmed 06/14/21] Amiodarone HCl 200 mg PO DAILY 11/27/20 [History Confirmed 06/14/21] Bumetanide 1 mg [Bumex 1 mg] 0.5 mg PO DAILY 11/27/20 [History Confirmed 06/14/21] Ferrous Sulfate [Iron] 65 mg PO DAILY 11/27/20 [History Confirmed 06/14/21] Polyethylene Glycol 3350 [Miralax] 17 gm PO DAILY PRN PRN 11/27/20 [History Confirmed 06/14/21] Rivaroxaban [Xarelto] 20 mg PO DAILY 11/27/20 [History Confirmed 06/14/21] Amlodipine Besylate [Norvasc] 2.5 mg PO DAILY 12/31/20 [History Confirmed 06/14/21] Allergies/Adverse Reactions: Allergies Allergy/AdvReac Type Severity Reaction Status Date / Time No Known Drug Allergies Allergy Verified 06/14/21 03:20 - Past Medical History Past Medical History: Yes Neurological History: Stroke ENT History: No Pertinent History Cardiac History: Arrhythmia, High Cholesterol, Hypertension Respiratory History: CHF, COPD Endocrine Medical History: Hypothyroidism, Liver Disease Musculoskelatal History: No Pertinent History GI Medical History: GERD, GI Bleed History: No Pertinent History Pyscho-Social History: No Pertinent History Reproductive Disorders: Cervical Cancer Comment: SX HX: HYSTERECTOMY WITH ONE OVARY REMOVAL, MULTIPLE HERNIA REPAIR,. PMHX: TEMPORAL ARTERITIS, CVA X 2 2013, 2014, CHRONIC HYPOXEMIC RESPIRATORY FAILURE,. CVA X 2, AFIB - Female History Are you now?: No - Past Surgical History Past Surgical History: Yes Neuro Surgical History: No Pertinent History Cardiac History: Other Respiratory Surgery: No Pertinent History GI Surgical History: Appendectomy, Cholecystectomy, Hernia Repair Genitourinary Surgical Hx: No Pertinent History Musculskeletal Surgical Hx: No Pertinent History Female Surgical History: Hysterectomy Other Surgical History: AAA repair, colonoscopy and EGD, - Social History Smoking Status: Current every day smoker How long have you smoked: 50 years Exposure to second hand smoke: Yes Alcohol: None Drug Use: none - Physical Exam Vital Signs: Vital Signs - 24 hr Temp Pulse Resp BP Pulse Ox 06/14/21 16:00 98.2 F 57 L 18 170/74 96 General Appearance: no apparent distress Neurologic Exam: alert, oriented x 3 Eye Exam: eyes nml inspection, No scleral icterus Ears, Nose, Throat Exam: moist mucous membranes Neck Exam: normal inspection Respiratory Exam: No respiratory distress, No accessory muscle use Cardiovascular Exam: capillary refill <2 sec, other (reg rate.) Gastrointestinal/Abdomen Exam: soft, No tenderness, No distention, No mass, No guarding, No pulsatile mass, No hepatomegaly, No splenomegaly Pelvic Exam: not done Rectal Exam: deferred Back Exam: normal inspection Extremity Exam: normal inspection Skin Exam: warm, dry Assessment/Plan (1) Anemia Status: Acute Assessment & Plan: 76yo female with repeat anemia, reported melena on xarelto for AF. HDS. ct with clear plane between duodenum and AAA. multiple negative egd/cscope and bleeding scan on recent admissions to local facilities. discussed the case with Dr. Garcia and my partner dr. alexander who has seen the patient before -recommend transfer to [facility] for multiple reasons--would likely benefit from small bowel evaluation push enteroscopy vs pill endoscopy. also we do not have compatible blood at our hospital. -can follow up in office in 2-4 weeks. also ovarian cystic mass can discuss in office. Code(s): D64.9 - ANEMIA, UNSPECIFIED
--- NOTE | 2021-07-10 10:54 | PCM.SSS ---
History of Present Illness - Chief Complaint Chief Complaint: GI bleed Date: 06/14/21 History of Present Illness: is a 76 year old female. Presented to ER with complaints of dark stools and periumbilical abdominal pain, pt. is on xarelto for chronic a-fib, recent work-up was unable to find a source of bleeding, but bleeding stopped with holding xarelto for 1 week. - Review of Systems Constitutional: No Fever, No Chills Eyes: No Symptoms Ears, Nose, & Throat: No Symptoms Respiratory: No Cough, No Short Of Breath Cardiac: No Chest Pain, No Edema, No Syncope Abdominal/Gastrointestinal: Abdominal Pain, Hematochezia, Melena, No Nausea, No Vomiting, No Diarrhea Genitourinary Symptoms: No Dysuria Musculoskeletal: No Back Pain, No Neck Pain Skin: No Rash Neurological: No Dizziness, No Focal Weakness, No Sensory Changes Psychological: No Symptoms Endocrine: No Symptoms Hematologic/Lymphatic: No Symptoms Immunological/Allergic: No Symptoms Medications & Allergies Home Medications: Home Medication List Atorvastatin Calcium 80 mg PO HS 01/06/18 [History Confirmed 06/14/21] Levothyroxine Sodium 88 Mcg [Synthroid 88 Mcg] 88 mcg PO DAILY 01/06/18 [History Confirmed 06/14/21] Ezetimibe 10 mg [Zetia 10 MG] 10 mg PO HS 04/02/18 [History Confirmed 06/14/21] Metoprolol Tartrate 25 mg PO BID 04/02/18 [History Confirmed 06/14/21] PANTOPRAZOLE 40 mg Tablet [Protonix 40MG Tablet] 40 mg PO BID 04/02/18 [History Confirmed 06/14/21] Alirocumab [Praluent Pen] 75 mg SQ UD 11/23/19 [History Confirmed 06/14/21] Hydralazine HCl 100 mg PO TID 11/23/19 [History Confirmed 06/14/21] Amiodarone HCl 200 mg PO DAILY 11/27/20 [History Confirmed 06/14/21] Bumetanide 1 mg [Bumex 1 mg] 0.5 mg PO DAILY 11/27/20 [History Confirmed 06/14/21] Ferrous Sulfate [Iron] 65 mg PO DAILY 11/27/20 [History Confirmed 06/14/21] Polyethylene Glycol 3350 [Miralax] 17 gm PO DAILY PRN PRN 11/27/20 [History Confirmed 06/14/21] Rivaroxaban [Xarelto] 20 mg PO DAILY 11/27/20 [History Confirmed 06/14/21] Amlodipine Besylate [Norvasc] 2.5 mg PO DAILY 12/31/20 [History Confirmed 06/14/21] Allergies/Adverse Reactions: Allergies Allergy/AdvReac Type Severity Reaction Status Date / Time No Known Drug Allergies Allergy Verified 06/14/21 03:20 - Past Medical History Past Medical History: Yes Neurological History: Stroke ENT History: No Pertinent History Cardiac History: Arrhythmia, High Cholesterol, Hypertension Respiratory History: CHF, COPD Endocrine Medical History: Hypothyroidism, Liver Disease Musculoskelatal History: No Pertinent History GI Medical History: GERD, GI Bleed History: No Pertinent History Pyscho-Social History: No Pertinent History Reproductive Disorders: Cervical Cancer Comment: SX HX: HYSTERECTOMY WITH ONE OVARY REMOVAL, MULTIPLE HERNIA REPAIR,. PMHX: TEMPORAL ARTERITIS, CVA X 2 2013, 2014, CHRONIC HYPOXEMIC RESPIRATORY FAILURE,. CVA X 2, AFIB - Female History Are you now?: No - Past Surgical History Past Surgical History: Yes Neuro Surgical History: No Pertinent History Cardiac History: Other Respiratory Surgery: No Pertinent History GI Surgical History: Appendectomy, Cholecystectomy, Hernia Repair Genitourinary Surgical Hx: No Pertinent History Musculskeletal Surgical Hx: No Pertinent History Female Surgical History: Hysterectomy Other Surgical History: AAA repair, colonoscopy and EGD, - Social History Smoking Status: Current every day smoker How long have you smoked: 50 years Exposure to second hand smoke: Yes Alcohol: None Drug Use: none - Physical Exam General Appearance: no apparent distress, alert Neurologic Exam: alert, cooperative, normal mood/affect, No motor deficits Eye Exam: PERRL/EOMI, eyes nml inspection Ears, Nose, Throat Exam: normal ENT inspection, pharynx normal, moist mucous membranes Neck Exam: normal inspection, non-tender, supple, full range of motion Respiratory Exam: normal breath sounds, lungs clear, No respiratory distress Cardiovascular Exam: normal heart sounds, normal peripheral pulses, irregular Gastrointestinal/Abdomen Exam: soft, normal bowel sounds, tenderness, No mass, No guarding Pelvic Exam: not done Rectal Exam: deferred Back Exam: normal inspection, normal range of motion, No CVA tenderness, No vertebral tenderness Extremity Exam: normal inspection, normal range of motion, pelvis stable Skin Exam: normal color, warm, dry, No rash Lymphatic Exam: No adenopathy Assessment/Plan (1) Anemia Status: Acute Code(s): D64.9 - ANEMIA, UNSPECIFIED (2) GI bleed Status: Acute Code(s): K92.2 - GASTROINTESTINAL HEMORRHAGE, UNSPECIFIED Hospital Summary - Hospital Course Hospital Course: Pt. was admitted to hospital for observation, no further evaluation was done as a bed opened up at [facility] for further evaluation of the etiology of this most recent GI Bleed - Vitals & Intake/Output Vital Signs: Vital Signs Temperature 98.2 F 06/14/21 16:00 Pulse Rate 57 L 06/14/21 16:00 Respiratory Rate 18 06/14/21 16:00 Blood Pressure 170/74 06/14/21 16:00 O2 Sat by Pulse Oximetry 96 06/14/21 16:00 - Lab Result Diagrams: 06/14/21 04:33 06/14/21 04:33 - Procedures and Test Procedures and Tests throughout Hospitalization: Therapy Orders & Screens 06/14/21 04:04 Smoking Cessation Education ONCE Comment: Diagnosis: GI bleed Smoking Status: Current every day smoker How long have you smoked: 50 years Have you smoked in the past 12 months: Yes Approximately how many cigarettes per day: 4 Do you dip or chew tobacco: No - Discharge Discharge Date: 06/14/21 Disposition: DC TO [facility] Condition: Stable Prescriptions: No Action Atorvastatin Calcium 80 mg PO HS Levothyroxine Sodium 88 Mcg [Synthroid 88 Mcg] 88 mcg PO DAILY Ezetimibe 10 mg [Zetia 10 MG] 10 mg PO HS PANTOPRAZOLE 40 mg Tablet [Protonix 40MG Tablet] 40 mg PO BID Metoprolol Tartrate 25 mg PO BID Hydralazine HCl 100 mg PO TID Alirocumab [Praluent Pen] 75 mg SQ UD Polyethylene Glycol 3350 [Miralax] 17 gm PO DAILY PRN PRN PRN Reason: Constipation Ferrous Sulfate [Iron] 65 mg PO DAILY Bumetanide 1 mg [Bumex 1 mg] 0.5 mg PO DAILY Amiodarone HCl 200 mg PO DAILY Rivaroxaban [Xarelto] 20 mg PO DAILY Amlodipine Besylate [Norvasc] 2.5 mg PO DAILY Follow up with: PRANAV HELM MD [Primary Care Provider] -
== END 2021-06-14 19:03 | disposition short-term general hospital (02) ==
LOC: ED 13:31 → MED SURG 06-14 03:01
PROVIDERS: ADMIT Family Medicine; ATTEND Family Medicine
DX: D64.9 Anemia, unspecified (principal); K92.2 Gastrointestinal hemorrhage, unspecified; I48.91 Unspecified atrial fibrillation; Z79.01 Long term (current) use of anticoagulants; R10.33 Periumbilical pain; Z79.899 Other long term (current) drug therapy; I10 Essential (primary) hypertension; E78.00 Pure hypercholesterolemia, unspecified; E03.9 Hypothyroidism, unspecified; Z85.41 Personal history of malignant neoplasm of cervix uteri; Z20.822 Contact with and (suspected) exposure to COVID-19
CPT/HCPCS: 36000; 36415; 36430; 74176; 80053; 80307; 83690; 83735; 84484; 85014; 85018; 85025; 86850; 86870; 86900; 86901; 86922; 93005; 93268; 94762; 96360; 99285; G0378; P9016; U0003; A9270-GY

== ENCOUNTER 2021-08-19 12:34 | Emergency (ER) | payer MEDICARE ==
[2021-08-19] MEDS ORDERED: NORCO 5/325 MG PO ONE (13:21)
[2021-08-19] MEDS ORDERED: NORCO 5/325 MG ONE (13:25)
--- NOTE | 2021-08-19 13:53 | ERPHSYRPT ---
- History of Present Illness Time Seen by Provider: 08/19/21 13:03 Source: patient Exam Limitations: no limitations Patient Subjective Stated Complaint: States fell at home around 5pm yesterday. Pain in right side of back, right arm, and right leg. States pain is worse today than yesterday so that it why she is coming in now. Patient states she lost her footing and fell sideways. She has a CVA history with right sided weakness and she fell onto her right side. She states "I hit my head a little on the floor but it doesn't hurt." Denies losing conciousness. Denies any dizziness prior to fall. Triage Nursing Assessment: Patient wheeled back to ED in w/c. She is alert and oriented and answering questions appropriately. Patient assisted from chair to bed by one staff without difficulties. Some RLE weakness noted during transfer but patient indicates this is normal for her since her stroke. Some small, mild bruising noted to right side under armpit and right mid to lower back. Patient c/o increased pain in RUE when elevating arm. Physician History: 76 years old female with multiple medical problems including atrial fibrillation on Xarelto, right-sided weakness from previous CVA presented in the ER after she took a fall yesterday when she was trying to sit on a chair which slid and she landed on the right side. She is complaining of pain in the right lateral rib cage and flank area. Questionable hitting her head but no loss of consciousness. Pain is moderate intensity sharp nature, more with movements palpation in the right chest and partial relief with being still. It also hurts to take a deep breath. Denies any neck pain, new numbness tingling or weakness but what she has from previous CVA. No difficulty breathing. Occurred: yesterday Reason for Fall: fell from standing pos Injuries/Pain Location: head, chest, abdomen, back Loss of Consciousness: no loss of consciousness Quality: aching Severity of Pain-Max: moderate Severity of Pain-Current: moderate Modifying Factors: Improves With: immobilization, rest. Worsens With: movement Associated Symptoms (Fall): abdominal pain, back pain, chest pain, extremity injury, muscle spasms, trouble walking, No headache, No lightheadedness, No neck pain, No ringing in ears, No seizures, No shortness of breath, No slurred speech, No vomiting, No vision changes Allergies/Adverse Reactions: No Known Drug Allergies Allergy (Verified 08/19/21 12:54) Home Medications: Atorvastatin Calcium 80 mg PO HS 01/06/18 [History] Levothyroxine Sodium 88 Mcg [Synthroid 88 Mcg] 88 mcg PO DAILY 01/06/18 [History] Ezetimibe 10 mg [Zetia 10 MG] 10 mg PO HS 04/02/18 [History] Metoprolol Tartrate 25 mg PO BID 04/02/18 [History] PANTOPRAZOLE 40 mg Tablet [Protonix 40MG Tablet] 40 mg PO BID 04/02/18 [History] Alirocumab [Praluent Pen] 75 mg SQ UD 11/23/19 [History] Hydralazine HCl 100 mg PO TID 11/23/19 [History] Amiodarone HCl 200 mg PO DAILY 11/27/20 [History] Bumetanide 1 mg [Bumex 1 mg] 0.5 mg PO DAILY 11/27/20 [History] Ferrous Sulfate [Iron] 65 mg PO DAILY 11/27/20 [History] Polyethylene Glycol 3350 [Miralax] 17 gm PO DAILY PRN PRN 11/27/20 [History] Rivaroxaban [Xarelto] 20 mg PO DAILY 11/27/20 [History] Amlodipine Besylate [Norvasc] 2.5 mg PO DAILY 12/31/20 [History] Hx Tetanus, Diphtheria Vaccination/Date Given: Yes Hx Influenza Vaccination/Date Given: No Hx Pneumococcal Vaccination/Date Given: Yes Immunizations Up to Date: Yes Travel Risk - International Travel Have you traveled outside of the country in past 3 weeks: No - Coronavirus Screening Are you exhibiting any of the following symptoms?: No Close contact with a COVID-19 positive Pt in past 14-21 Days: No - Vaccine Status Have you recieved a Covid-19 vaccination: Yes 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 - Vaccination Dates Date of 2cond Vaccination (if applicable): 10/30/2020 - Review of Systems Constitutional: No Symptoms Eyes: No Symptoms Ears, Nose, & Throat: No Symptoms Respiratory: No Symptoms Cardiac: Chest Pain Abdominal/Gastrointestinal: No Symptoms Genitourinary Symptoms: No Symptoms Musculoskeletal: Arthralgias, Back Pain, Fall, No Neck Pain Skin: No Symptoms Neurological: No Symptoms Psychological: No Symptoms Endocrine: No Symptoms Hematologic/Lymphatic: No Symptoms Immunological/Allergic: No Symptoms - Past Medical History Pertinent Past Medical History: Yes Neurological History: Stroke ENT History: No Pertinent History Cardiac History: Arrhythmia, Coronary Artery Disease, High Cholesterol, Hypertension Respiratory History: CHF, COPD Endocrine Medical History: Hypothyroidism, Liver Disease Musculoskeletal History: No Pertinent History GI Medical History: GERD, GI Bleed History: No Pertinent History Psycho-Social History: No Pertinent History Female Reproductive Disorders: Cervical Cancer Other Medical History: HYSTERECTOMY WITH ONE OVARY REMOVAL, MULTIPLE HERNIA REPAIR, TEMPORAL ARTERITIS, CVA in 2013 and 2014, CHRONIC HYPOXEMIC RESPIRATORY FAILURE - Past Surgical History Past Surgical History: Yes Neuro Surgical History: No Pertinent History Cardiac: Other Respiratory: No Pertinent History Gastrointestinal: Appendectomy, Cholecystectomy, Hernia Repair Genitourinary: No Pertinent History Musculoskeletal: No Pertinent History Female Surgical History: Hysterectomy Other Surgical History: AAA repair, colonoscopy, EGD - Social History Smoking Status: Current every day smoker How long have you smoked: 50 years Exposure to second hand smoke: Yes Drug Use: none Patient Lives Alone: No - Female History Hx Now: No - Nursing Vital Signs Nursing Vital Signs: Initial Vital Signs Temperature 97.5 F 08/19/21 12:55 Pulse Rate 50 L 08/19/21 12:55 Respiratory Rate 18 08/19/21 12:55 Blood Pressure 158/81 08/19/21 12:55 O2 Sat by Pulse Oximetry 97 08/19/21 12:55 Pain Scale Pain Intensity 3 - Alejandro Coma Score Best Eye Response ([place]): (4) open spontaneously Best Verbal Response ([place]): (5) oriented Best Motor Response ([place]): (6) obeys commands [place] Total: 15 - Physical Exam General Appearance: no apparent distress, alert Head Injury: no evidence of injury, No active bleeding, No Dawson's Sign, No contusions, No ecchymosis Eye Exam: PERRL/EOMI, eyes nml inspection ENT Exam: airway nml, No evidence of ENT injury Neck Exam: supple, trachea midline, full range of motion, normal alignment, normal inspection, No focal neuro deficit Respiratory/Chest Exam: chest tenderness (Right mid to lower lateral chest wall without crepitus.), normal breath sounds, No respiratory distress Cardiovascular Exam: normal heart sounds, regular rate/rhythm Gastrointestinal Exam: soft, normal bowel sounds, tenderness (Minimal tenderness right flank) Back Exam: normal inspection, normal range of motion, No CVA tenderness, No vertebral tenderness Extremity Exam: normal inspection, capillary refill <3 sec Neurologic Exam: alert, oriented x 3, 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, 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, normal mood/affect, sensation nml, motor deficits, No nml station & gait Skin Exam: normal color SpO2 Interpretation: normal SpO2: 97 O2 Delivery: Room Air Ordered Tests: Active Orders 24 hr Category Date Time Status ABDOMEN AND PELVIS W/0 CONTRAS [CT] Stat Exams 08/19/21 13:21 Ordered CERVICAL SPINE WO CONTRAST [CT] Stat Exams 08/19/21 13:21 Ordered CHEST WITHOUT CONTRAST [CT] Stat Exams 08/19/21 13:21 Ordered HEAD WITHOUT CONTRAST [CT] Stat Exams 08/19/21 13:21 Ordered CBC W DIFF Stat Lab 08/19/21 14:20 Completed CK (IN-HOUSE) [CK-Creatinine Phosphokinase] Stat Lab 08/19/21 14:20 Completed CMP Stat Lab 08/19/21 14:20 Completed UA W/RFX UR CULTURE Stat Lab 08/19/21 13:20 Ordered Medication Summary Discontinued Medications Generic Name Dose Route Start Last Admin Trade Name Rishi PRN Reason Stop Dose Admin Hydrocodone Bitart/Acetaminophen 2 tab 08/19/21 13:21 08/19/21 13:26 Hydrocodone/Apap 5/325 Mg Tablet PO 08/19/21 13:22 2 tab STAT ONE Administration Hydrocodone Bitart/Acetaminophen Confirm 08/19/21 13:25 Hydrocodone/Apap 5/325 Mg Tablet Administered 08/19/21 13:26 Dose 2 tab .ROUTE .STK-MED ONE Ondansetron HCl 4 mg 08/19/21 13:57 08/19/21 13:58 Zofran 4 Mg/Udtablet Orally Disintegrating PO 08/19/21 13:58 4 mg STAT ONE Administration Ondansetron HCl Confirm 08/19/21 13:58 Zofran 4 Mg/Udtablet Orally Disintegrating Administered 08/19/21 13:59 Dose 4 mg .ROUTE .STK-MED ONE Lab/Rad Data: Laboratory Result Diagrams 08/19/21 14:20 08/19/21 14:20 Laboratory Results 08/19/21 08/19/21 08/19/21 Range/Units 14:20 14:20 14:20 WBC 8.5 (4.0-10.5) K/mm3 RBC 3.75 L (4.1-5.4) M/mm3 Hgb 11.1 L (12.0-16.0) gm/dl Hct 35.7 (35-47) % MCV 95.2 (78-100) fl MCH 29.6 (26-32) pg MCHC 31.1 L (32-36) g/dl RDW 14.5 H (11.5-14.0) % Plt Count 279 (150-450) K/mm3 MPV 9.0 (7.5-11.0) fl Gran % 78.1 H (36.0-66.0) % Eos # (Auto) 0.26 (0-0.5) Absolute Lymphs (auto) 0.83 L (1.0-4.6) Absolute Monos (auto) 0.75 (0.0-1.3) Lymphocytes % 9.8 L (24.0-44.0) % Monocytes % 8.8 (0.0-12.0) % Eosinophils % 3.1 (0.00-5.0) % Basophils % 0.2 (0.0-0.4) % Absolute Granulocytes 6.65 (1.4-6.9) Basophils # 0.02 (0-0.4) Sodium 136 L (137-145) mmol/L Potassium 4.6 (3.5-5.1) mmol/L Chloride 104 (98-107) mmol/L Carbon Dioxide 24 (22-30) mmol/L Anion Gap 12.3 (5-15) MEQ/L BUN 37 H (7-17) mg/dL Creatinine 2.07 H (0.52-1.04) mg/dL Estimated GFR 24.7 ML/MIN Glucose 101 (74-106) mg/dL Calcium 8.7 (8.4-10.2) mg/dL Total Bilirubin 0.40 (0.2-1.3) mg/dL AST 20 (14-36) U/L ALT 15 (0-35) U/L Alkaline Phosphatase 126 (38-126) U/L Creatine Kinase 45 (30-135) U/L Serum Total Protein 6.2 L (6.3-8.2) g/dL Albumin 3.6 (3.5-5.0) g/dL - Progress Progress: improved Progress Note: 08/19/21 15:51 She is given symptomatic treatment. I have obtained CT head because of her being on Xarelto which is negative for skull fracture, internal bleed. CT cervical spine did not show any acute osseous finding related to fall or trauma. CT chest without contrast showed nondisplaced right seventh rib fracture without pneumo or hemothorax. CT abdomen pelvis negative for any acute findings. Patient is feeling better on reevaluation. She has clear mechanical fall and baseline work-up is negative. Do not think she needs any other work-up and is stable for discharge with outpatient follow-up. 08/19/21 15:53 Counseled pt/family regarding: lab results, diagnosis, need for follow-up, rad results - Departure Departure Disposition: Home Clinical Impression: Fall Qualifiers: Encounter type: initial encounter Qualified Code(s): W19.XXXA - Unspecified fall, initial encounter Right rib fracture Qualifiers: Encounter type: initial encounter Rib fracture type: single rib Fracture type: closed Qualified Code(s): S22.31XA - Fracture of one rib, right side, initial encounter for closed fracture Condition: Stable Critical Care Time: No Referrals: PRANAV HELM MD [Primary Care Provider] - Follow up/PCP as directed (In 2 days for reevaluation.) Instructions: Preventing Falls, Rib Fracture (DC) Additional Instructions: Take Tylenol as needed. Use cane/walker for ambulation to avoid a fall. Do deep breathing exercises. Return to ER for worsening chest wall pain or if having difficulty breathing, increasing numbness weakness etc.
[2021-08-19] MEDS ORDERED: ZOFRAN ODT 4 MG PO ONE (13:57)
[2021-08-19] MEDS ORDERED: ZOFRAN ODT 4 MG ONE (13:58)
[2021-08-19 14:34] LABS: Absolute Neutrophil Ct (ANC) 6.65 (1.4-6.9); BASOPHIL % 0.2 % (0.0-0.4); Basophil (Absolute #) 0.02 (0-0.4); Eosinophil % 3.1 % (0.00-5.0); Eosinophil (Absolute #) 0.26 (0-0.5); Hematocrit 35.7 % (35-47); Hemoglobin 11.1 gm/dl (12.0-16.0); Lymphocyte (Absolute #) 0.83 (1.0-4.6); Lymphocytes % 9.8 % (24.0-44.0); Mean Cell Volume 95.2 fl (78-100); Mean Corpuscular Hemoglobin 29.6 pg (26-32); Mean Corpuscular Hgb Concent. 31.1 g/dl (32-36); Monocyte (Absolute #) 0.75 (0.0-1.3); Monocytes % 8.8 % (0.0-12.0); Neutrophil % 78.1 % (36.0-66.0); Platelet Count 279 K/mm3 (150-450); Red Blood Count 3.75 M/mm3 (4.1-5.4); Red Cell Distribution Width 14.5 % (11.5-14.0); White Blood Count 8.5 K/mm3 (4.0-10.5)
[2021-08-19 15:01] LABS: ALBUMIN 3.6 g/dL (3.5-5.0); ANION GAP 12.3 MEQ/L (5-15); BILIRUBIN,TOTAL 0.4 mg/dL (0.2-1.3); Calcium 8.7 mg/dL (8.4-10.2); Creatinine 1 2.07 mg/dL (0.52-1.04); EST GLOMERULAR FILTRATION RATE 24.7 ML/MIN; Potassium 4.6 mmol/L (3.5-5.1); Total Protein 6.2 g/dL (6.3-8.2)
[2021-08-19 15:10] VITALS: PULSE 52
[2021-08-19 16:05] VITALS: BP 147/67; O2SAT 96
--- NOTE | 2021-08-19 19:14 | XRAY ---
Indication: Status post fall one day earlier. History stroke. Multiple contiguous axial images obtained through the head without contrast. Comparison: August 26, 2014. There is now age-appropriate global atrophy, mild periventricular degenerative micro-ischemia bilaterally, and old infarct posterior left temporoparietal lobe. No acute intracranial hemorrhage, hydrocephalus, or mass effect. Bony calvarium intact. Partial opacification left mastoid air cells possibly inflammatory. Visualized paranasal sinuses are clear. Impression: Nonacute senile brain with old infarct left temporoparietal lobe. Query left mastoiditis. Comment: Preliminary interpretation made by C. No critical discrepancy.
--- NOTE | 2021-08-19 19:15 | XRAY ---
Indication: Status post fall one day earlier. History stroke. Multiple contiguous axial images obtained through the cervical spine. Sagittal and coronal reformatted images obtained. Comparison: None. Age-related osteopenia. Axial images negative for acute fracture, suspicious bony lesions, or spinal canal stenosis. Minimal/mild C3-C7 degenerative endplate spurring and mild multilevel bilateral degenerative facet hypertrophy. Sagittal and coronal reformatted images demonstrates normal alignment with multilevel degenerative disc space narrowing. No acute compression fracture, subluxation, or jumped facet. Normal appearing craniocervical junction. Visualized noncontrasted soft tissues demonstrate moderate bilateral carotid calcifications. Impression: 1. Negative acute fracture/subluxation. 2. Osteopenia, multilevel degenerative changes, and bilateral carotid calcifications. Comment: Preliminary interpretation made by C. No critical discrepancy.
--- NOTE | 2021-08-19 19:24 | XRAY ---
Indication: Pain following fall one day earlier. History stroke. Multiple contiguous axial images obtained through the chest without contrast. Comparison: None. Lungs demonstrates bilateral dependent atelectasis, diffuse pulmonary emphysema, scattered fibrosis/scarring, and a few bilateral calcified granulomas. Right upper lobe demonstrates a 4 mm and 6 mm noncalcified nodule possibly granulomatous. No infiltrate, effusion, or pneumothorax. Heart is enlarged. Heavy scattered arteriosclerotic calcifications including coronary arteries. No pathologic mediastinal lymphadenopathy. Small hiatal hernia. Bony thorax demonstrates nondisplaced right lateral 7 rib fracture, osteopenia, and minimal degenerative changes throughout the spine. CT abdomen/pelvis reported separately. Impression: 1. Nondisplaced right 7 rib fracture without pneumothorax/pneumothorax. 2. Incidental pulmonary emphysema, fibrosis/scarring, bilateral dependent atelectasis, calcified/noncalcified granulomas, cardiomegaly, extensive arteriosclerotic disease, chronic bony findings, and small hiatal hernia. Comment: Preliminary interpretation made by [facility]. No critical discrepancy.
--- NOTE | 2021-08-19 19:30 | XRAY ---
Indication: Pain following fall one day earlier. History stroke. Multiple contiguous axial images obtained through the abdomen and pelvis without contrast. Comparison: June 13, 2021. Noncontrasted stomach and bowel loops nonobstructed. 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 No free fluid/air. Remaining liver, pancreas, spleen, adrenal glands, kidneys, ureters, and bladder are unremarkable for noncontrast exam. Again heavy scattered vascular calcifications with 4 cm distal AAA. Osseous structures intact again with osteopenia, minimal degenerative changes throughout the spine, and minimal levoscoliosis. Intact ventral hernia mesh graft. Impression: 1. Stable cecal lipoma, colonic diverticulosis, bilateral renal cysts, large right adnexa cystic mass, extensive arteriosclerotic disease with distal AAA, and chronic bony findings. 2. Remaining CT abdomen/pelvis without contrast exam is negative. Comment: Preliminary interpretation made by [facility]. No critical discrepancy.
== END 2021-08-19 16:05 | disposition home or self-care (01) ==
LOC: ED 12:34
DX: S22.31XA Fracture of one rib, right side, initial encounter for closed fracture (principal); W01.0XXA Fall on same level from slipping, tripping and stumbling without subsequent striking against object, initial encounter; E78.5 Hyperlipidemia, unspecified; I10 Essential (primary) hypertension; J44.9 Chronic obstructive pulmonary disease, unspecified; Z72.0 Tobacco use; Z79.01 Long term (current) use of anticoagulants
CPT/HCPCS: 36415; 70450; 71250; 72125; 74176; 80053; 82550; 85025; 99284; Q0162; A9270-GY

== ENCOUNTER 2022-01-09 20:33 | Observation (INO) | payer MEDICARE ==
[2022-01-09 21:59] LABS: Absolute Neutrophil Ct (ANC) 10.02 (1.4-6.9); Basophil (Absolute #) 0.04 (0-0.4); Eosinophil % 0.8 % (0.00-5.0); Hemoglobin 11.5 gm/dl (12.0-16.0); Lymphocyte (Absolute #) 0.94 (1.0-4.6); Lymphocytes % 7.7 % (24.0-44.0); Mean Cell Volume 96.1 fl (78-100); Mean Corpuscular Hemoglobin 29.9 pg (26-32); Mean Corpuscular Hgb Concent. 31.1 g/dl (32-36); Mean Platelet Volume 9.7 fl (7.5-11.0); Monocyte (Absolute #) 1.03 (0.0-1.3); Monocytes % 8.5 % (0.0-12.0); Neutrophil % 82.7 % (36.0-66.0); Platelet Count 308 K/mm3 (150-450); Red Blood Count 3.85 M/mm3 (4.1-5.4); Red Cell Distribution Width 14.4 % (11.5-14.0); White Blood Count 12.1 K/mm3 (4.0-10.5)
[2022-01-09 22:10] LABS: ALBUMIN 4.2 g/dL (3.5-5.0); ANION GAP 16.2 MEQ/L (5-15); BILIRUBIN,TOTAL 0.7 mg/dL (0.2-1.3); Calcium 8.7 mg/dL (8.4-10.2); Creatinine 1 2.75 mg/dL (0.52-1.04); EST GLOMERULAR FILTRATION RATE 17.8 ML/MIN; Potassium 4.2 mmol/L (3.5-5.1); Total Protein 7.8 g/dL (6.3-8.2)
--- NOTE | 2022-01-09 23:25 | ERPHSYRPT ---
- History of Present Illness Time Seen by Provider: 01/09/22 20:45 Source: patient Patient Subjective Stated Complaint: Pt states "I thought I just had a cold but I have been feeling weak and short of breath" Triage Nursing Assessment: Pt alert and oriented x3, pt c/o productive cough, ruuny nose, SOB, and diarrhea for 3 to 4 days, pt denies fever at this time. Physician History: Patient is a 76-year-old female presents to our ED with complaints of cough and shortness of breath. Patient states symptoms started approximately 3 to 4 days ago. Patient has been experiencing some nasal congestion and rhinorrhea. Patient has a history of symptomatic anemia. Patient thought that may be her symptoms were due to low hemoglobin. Patient denies chest pain. No nausea vomiting or diaphoresis. Patient has had diarrhea for the past 3 to 4 days. Patient advises she has a history of chronic renal sufficiency. Symptoms are constant. Symptoms are moderate in intensity. No specific worsening proving factors. Patient voices no other complaints or concerns at this time. Timing/Duration: day(s) (3 to 4 days) Severity: moderate Modifying Factors: Improves With: nothing Associated Symptoms: shortness of breath, No fever Allergies/Adverse Reactions: No Known Drug Allergies Allergy (Verified 01/09/22 20:35) Home Medications: Atorvastatin Calcium 80 mg PO HS 01/06/18 [History] Levothyroxine Sodium 88 Mcg [Synthroid 88 Mcg] 88 mcg PO DAILY 01/06/18 [History] Ezetimibe 10 mg [Zetia 10 MG] 10 mg PO HS 04/02/18 [History] Metoprolol Tartrate 25 mg PO BID 04/02/18 [History] PANTOPRAZOLE 40 mg Tablet [Protonix 40MG Tablet] 40 mg PO BID 04/02/18 [History] Alirocumab [Praluent Pen] 75 mg SQ UD 11/23/19 [History] Hydralazine HCl 100 mg PO TID 11/23/19 [History] Amiodarone HCl 200 mg PO DAILY 11/27/20 [History] Bumetanide 1 mg [Bumex 1 mg] 0.5 mg PO DAILY 11/27/20 [History] Ferrous Sulfate [Iron] 65 mg PO BID 11/27/20 [History] Polyethylene Glycol 3350 [Miralax] 17 gm PO DAILY PRN PRN 11/27/20 [History] Rivaroxaban [Xarelto] 20 mg PO DAILY 11/27/20 [History] Amlodipine Besylate [Norvasc] 2.5 mg PO DAILY 12/31/20 [History] Potassium Chloride [Klor-Con M20] 1 tab PO DAILY 01/10/22 [History] Hx Tetanus, Diphtheria Vaccination/Date Given: Yes Hx Influenza Vaccination/Date Given: No Hx Pneumococcal Vaccination/Date Given: Yes Immunizations Up to Date: Yes Travel Risk - International Travel Have you traveled outside of the country in past 3 weeks: No - Coronavirus Screening Are you exhibiting any of the following symptoms?: Yes Symptoms: Cough: New Onset, Shortness of Breath Close contact with a COVID-19 positive Pt in past 14-21 Days: No - Vaccine Status Have you recieved a Covid-19 vaccination: Yes [employer]: [employer] - Vaccination Dates Date of 2cond Vaccination (if applicable): 10/30/2020 - Review of Systems Constitutional: No Symptoms, No Fever, No Chills Eyes: No Symptoms Ears, Nose, & Throat: No Symptoms Respiratory: No Symptoms, No Cough, No Dyspnea Cardiac: No Symptoms, No Chest Pain, No Edema, No Syncope Abdominal/Gastrointestinal: No Symptoms, No Abdominal Pain, No Nausea, No Vomiting, No Diarrhea Genitourinary Symptoms: No Symptoms, No Dysuria Musculoskeletal: No Symptoms, No Back Pain, No Neck Pain Skin: No Symptoms, No Rash Neurological: No Symptoms, No Dizziness, No Focal Weakness, No Sensory Changes Psychological: No Symptoms Endocrine: No Symptoms Hematologic/Lymphatic: No Symptoms Immunological/Allergic: No Symptoms All Other Systems: Reviewed and Negative - Past Medical History Pertinent Past Medical History: Yes Neurological History: Stroke ENT History: No Pertinent History Cardiac History: Arrhythmia, Coronary Artery Disease, High Cholesterol, Hy pertension Respiratory History: CHF, COPD Endocrine Medical History: Hypothyroidism, Liver Disease Musculoskeletal History: No Pertinent History GI Medical History: GERD, GI Bleed History: No Pertinent History Psycho-Social History: No Pertinent History Female Reproductive Disorders: Cervical Cancer Other Medical History: HYSTERECTOMY WITH ONE OVARY REMOVAL, MULTIPLE HERNIA REPAIR, TEMPORAL ARTERITIS, CVA in 2013 and 2014, CHRONIC HYPOXEMIC RESPIRATORY FAILURE - Past Surgical History Past Surgical History: Yes Neuro Surgical History: No Pertinent History Cardiac: Other Respiratory: No Pertinent History Gastrointestinal: Appendectomy, Cholecystectomy, Hernia Repair Genitourinary: No Pertinent History Musculoskeletal: No Pertinent History Female Surgical History: Hysterectomy Other Surgical History: AAA repair, colonoscopy, EGD - Social History Smoking Status: Current every day smoker How long have you smoked: 50 years Exposure to second hand smoke: Yes Drug Use: none Patient Lives Alone: No - Nursing Vital Signs Nursing Vital Signs: Initial Vital Signs Temperature 97.8 F 01/09/22 20:35 Pulse Rate 51 L 01/09/22 20:35 Respiratory Rate 24 01/09/22 20:35 Blood Pressure 132/60 01/09/22 20:35 O2 Sat by Pulse Oximetry 91 L 01/09/22 20:35 Pain Scale Pain Intensity 0 - Physical Exam General Appearance: no apparent distress, alert, other (Mild tachypnea observed) Eye Exam: PERRL/EOMI, eyes nml inspection Ears, Nose, Throat Exam: normal ENT inspection, TMs normal, pharynx normal, m oist mucous membranes Neck Exam: normal inspection, non-tender, supple, full range of motion Respiratory Exam: lungs clear, airway intact, diminished breath sounds, No respiratory distress Cardiovascular Exam: regular rate/rhythm, normal heart sounds, normal peripheral pulses Gastrointestinal/Abdomen Exam: soft, normal bowel sounds, No tenderness, No mass Back Exam: normal inspection, normal range of motion, No CVA tenderness, No vertebral tenderness Extremity Exam: normal inspection, normal range of motion, pelvis stable Neurologic Exam: alert, oriented x 3, cooperative, normal mood/affect, nml cerebellar function, nml station & gait, sensation nml, No motor deficits Skin Exam: normal color, warm, dry, No rash Lymphatic Exam: No adenopathy SpO2 Interpretation: normal SpO2: 94 O2 Delivery: Room Air - Course Nursing assessment & vital signs reviewed: Yes EKG Interpreted by Me: RATE (52), Sinus Rhythm, NORMAL AXIS, NORMAL INTERVALS - Radiology Exams Chest X-ray Interpretation: Interpreted by me (Right basilar atelectasis. Lungs are clear. Normal cardiac silhouette. Intact bony thorax.) Ordered Tests: Active Orders 24 hr Category Date Time Status Melter Supervisor STAT Care 01/09/22 21:20 Active EKG-ER Only STAT Care 01/09/22 21:20 Active IV Insertion STAT Care 01/09/22 21:18 Active Pulse Oximetry (ED) STAT Care 01/09/22 21:20 Active CHEST 1 VIEW (PORTABLE) Stat Exams 01/09/22 21:20 Taken BLOOD CULTURE Stat Lab 01/09/22 21:45 Received CBC W DIFF Stat Lab 01/09/22 21:54 Completed CMP Stat Lab 01/09/22 21:54 Completed TROPONIN Q3H Lab 01/09/22 21:54 Completed TROPONIN Q3H Lab 01/10/22 00:15 Completed TROPONIN Q3H Lab 01/10/22 03:30 Ordered TROPONIN Q3H Lab 01/10/22 06:30 Ordered TROPONIN Q3H Lab 01/10/22 09:30 Ordered Respiratory Therapy Assessment DAILY RT 01/09/22 23:48 Completed Medication Summary Generic Name Dose Route Start Last Admin Trade Name Freq PRN Reason Stop Dose Admin Ceftriaxone Sodium/Dextrose 2 g in 50 mls @ 100 mls/hr 01/10/22 10:00 01/10/22 00:57 Rocephin 2 Gm-D5w 50ml Bag IV 01/13/22 09:59 Infused Q24H10 JIM Infusion Discontinued Medications Generic Name Dose Route Start Last Admin Trade Name Freq PRN Reason Stop Dose Admin Albuterol/Ipratropium 3 ml 01/09/22 23:34 01/09/22 23:49 Ipratropium/Albuterol Sulfate 3 Ml Ampul.Neb IH 01/09/22 23:35 3 ml STAT ONE Administration Albuterol/Ipratropium Confirm 01/09/22 23:46 Ipratropium/Albuterol Sulfate 3 Ml Ampul.Neb Administered 01/09/22 23:47 Dose 3 ml IH .STK-MED ONE Methylprednisolone Sodium 0 mg 01/09/22 23:34 01/10/22 00:20 Succinate 125 mg/ Sterile IV 01/09/22 23:35 125 mg Water 2 ml STAT ONE Administration Azithromycin 500 mg in 250 mls @ 250 mls/hr 01/09/22 23:36 01/10/22 01:09 Zithromax 500 Mg/ 250 Ml Nacl Premix IV 01/10/22 00:35 250 mls/hr STAT STA 250 mls/hr Administration Azithromycin Confirm 01/10/22 01:00 Zithromax 500 Mg/ 250 Ml Nacl Premix Administered 01/10/22 01:01 Dose 500 mg in 250 mls @ ud IV .STK-MED ONE Azithromycin Confirm 01/10/22 01:07 Zithromax 500 Mg/ 250 Ml Nacl Premix Administered 01/10/22 01:08 Dose 500 mg in 250 mls @ IV .STK-MED ONE Methylprednisolone Sodium Succinate Confirm 01/10/22 00:19 Methylprednis Sod Succ 125 Mg/2 Ml Vial Administered 01/10/22 00:20 Dose 125 mg .ROUTE .STK-MED ONE Sterile Water Confirm 01/10/22 00:19 Water For Injection,Sterile 10 Ml Vial Administered 01/10/22 00:20 Dose 10 ml IJ .STK-MED ONE Lab/Rad Data: Laboratory Result Diagrams 01/09/22 21:54 01/09/22 21:54 Laboratory Results 01/10/22 01/09/22 01/09/22 Range/Units 00:15 21:54 21:54 WBC (4.0-10.5) K/mm3 RBC (4.1-5.4) M/mm3 Hgb (12.0-16.0) gm/dl Hct (35-47) % MCV (78-100) fl MCH (26-32) pg MCHC (32-36) g/dl RDW (11.5-14.0) % Plt Count (150-450) K/mm3 MPV (7.5-11.0) fl Gran % (36.0-66.0) % Eos # (Auto) (0-0.5) Absolute Lymphs (auto) (1.0-4.6) Absolute Monos (auto) (0.0-1.3) Lymphocytes % (24.0-44.0) % Monocytes % (0.0-12.0) % Eosinophils % (0.00-5.0) % Basophils % (0.0-0.4) % Absolute Granulocytes (1.4-6.9) Basophils # (0-0.4) Sodium 137 (137-145) mmol/L Potassium 4.2 (3.5-5.1) mmol/L Chloride 105 (98-107) mmol/L Carbon Dioxide 20 L (22-30) mmol/L Anion Gap 16.2 H (5-15) MEQ/L BUN 43 H (7-17) mg/dL Creatinine 2.75 H (0.52-1.04) mg/dL Estimated GFR 17.8 ML/MIN Glucose 110 H (74-106) mg/dL Calcium 8.7 (8.4-10.2) mg/dL Total Bilirubin 0.70 (0.2-1.3) mg/dL AST 36 (14-36) U/L ALT 37 H (0-35) U/L Alkaline Phosphatase 152 H (38-126) U/L Troponin I 0.012 0.015 (0.000-0.034) ng/mL Serum Total Protein 7.8 (6.3-8.2) g/dL Albumin 4.2 (3.5-5.0) g/dL Influenza Type A Ag (NEGATIVE) Influenza Type B Ag (NEGATIVE) RSV (PCR) (Negative) SARS-CoV-2 (PCR) (NEGATIVE) 01/09/22 01/09/22 Range/Units 21:54 00:15 WBC 12.1 H (4.0-10.5) K/mm3 RBC 3.85 L (4.1-5.4) M/mm3 Hgb 11.5 L (12.0-16.0) gm/dl Hct 37.0 (35-47) % MCV 96.1 (78-100) fl MCH 29.9 (26-32) pg MCHC 31.1 L (32-36) g/dl RDW 14.4 H (11.5-14.0) % Plt Count 308 (150-450) K/mm3 MPV 9.7 (7.5-11.0) fl Gran % 82.7 H (36.0-66.0) % Eos # (Auto) 0.10 (0-0.5) Absolute Lymphs (auto) 0.94 L (1.0-4.6) Absolute Monos (auto) 1.03 (0.0-1.3) Lymphocytes % 7.7 L (24.0-44.0) % Monocytes % 8.5 (0.0-12.0) % Eosinophils % 0.8 (0.00-5.0) % Basophils % 0.3 (0.0-0.4) % Absolute Granulocytes 10.02 H (1.4-6.9) Basophils # 0.04 (0-0.4) Sodium (137-145) mmol/L Potassium (3.5-5.1) mmol/L Chloride (98-107) mmol/L Carbon Dioxide (22-30) mmol/L Anion Gap (5-15) MEQ/L BUN (7-17) mg/dL Creatinine (0.52-1.04) mg/dL Estimated GFR ML/MIN Glucose (74-106) mg/dL Calcium (8.4-10.2) mg/dL Total Bilirubin (0.2-1.3) mg/dL AST (14-36) U/L ALT (0-35) U/L Alkaline Phosphatase (38-126) U/L Troponin I (0.000-0.034) ng/mL Serum Total Protein (6.3-8.2) g/dL Albumin (3.5-5.0) g/dL Influenza Type A Ag NEGATIVE (NEGATIVE) Influenza Type B Ag NEGATIVE (NEGATIVE) RSV (PCR) NEGATIVE (Negative) SARS-CoV-2 (PCR) NEGATIVE (NEGATIVE) - Progress Progress: improved Progress Note: Patient reassessed. She feels well. Patient has a history of COPD. Patient presents with diminished breath sounds generalized weakness decreased p.o. Patient mildly tachypneic on physical exam. Mild leukocytosis. We will treat patient for COPD exacerbation. Blood cultures obtained. Solu-Medrol administered. DuoNeb ordered. COVID test pending. 01/09/22 23:[address] Chanel who accepts admission to observation. Plan of care discussed with patient. Patient agrees to admission [facility] for further evaluation and treatment. 01/10/22 01:[address] Kimberley Will see patient in: hospital (observation) Counseled pt/family regarding: lab results, diagnosis, need for follow-up, rad results - Departure Departure Disposition: Observation Clinical Impression: COPD exacerbation, Chronic renal insufficiency, Generalized weakness, Anorexia, URI (upper respiratory infection) Condition: Stable Critical Care Time: No Referrals: PRANAV HELM MD [Primary Care Provider] - Follow up/PCP as directed Instructions: Chronic Obstructive Pulmonary Disease
[2022-01-09] MEDS ORDERED: solu-MEDROL 125 MG, Sterile H2O 10 ml 2 ML IV ONE ×2 (23:34)
[2022-01-09] MEDS ORDERED: DUONEB 0.5-3 MG/3 ml Neb IH ONE ×2 (23:34→23:46)
[2022-01-09] MEDS ORDERED: Zithromax 500 MG/ 250 ML NaCl Premix 500 MG/250 ML IVPB IV STA (23:36)
[2022-01-10] MEDS ORDERED: solu-MEDROL ONE (00:19)
[2022-01-10] MEDS ORDERED: Sterile H2O 10 ml IJ ONE (00:19)
[2022-01-10 00:58] LABS: INFLUENZA A NEGATIVE (NEGATIVE); INFLUENZA B NEGATIVE (NEGATIVE); RESPIRATORY SYNCTIAL VIRUS NEGATIVE (Negative); SARS-CoV-2 Xpert Express NEGATIVE (NEGATIVE)
[2022-01-10] MEDS ORDERED: Zithromax 500 MG/ 250 ML NaCl Premix 0 MG/0 ML IVPB IV ONE (01:00)
[2022-01-10] MEDS ORDERED: Zithromax 500 MG/ 250 ML NaCl Premix 500 MG/250 ML IVPB IV ONE (01:07)
[2022-01-10] MEDS ORDERED: PROVENTIL 2.5 MG/3 ML NEB IH SCH (03:00)
[2022-01-10] MEDS ORDERED: PROVENTIL 2.5 MG/3 ML NEB IH ONE (03:12)
[2022-01-10 05:13] LABS: Hemoglobin 11.2 gm/dl (12.0-16.0); Mean Cell Volume 95.7 fl (78-100); Mean Corpuscular Hemoglobin 29.8 pg (26-32); Mean Corpuscular Hgb Concent. 31.1 g/dl (32-36); Mean Platelet Volume 9.7 fl (7.5-11.0); Platelet Count 286 K/mm3 (150-450); Red Blood Count 3.76 M/mm3 (4.1-5.4); Red Cell Distribution Width 14.3 % (11.5-14.0)
[2022-01-10 05:21] LABS: ALBUMIN 3.9 g/dL (3.5-5.0); ANION GAP 15.2 MEQ/L (5-15); BILIRUBIN,TOTAL 0.5 mg/dL (0.2-1.3); Calcium 8.6 mg/dL (8.4-10.2); Creatinine 1 2.62 mg/dL (0.52-1.04); EST GLOMERULAR FILTRATION RATE 18.9 ML/MIN; Potassium 4.3 mmol/L (3.5-5.1); Total Protein 7.2 g/dL (6.3-8.2)
[2022-01-10] MEDS: solu-MEDROL 60 MG, Sterile H2O 10 ml 2 ML IV SCH ×6 (05:47→18:11)
[2022-01-10] MEDS ORDERED: PROVENTIL Solution 2.5 MG/0.5 ML IH ONE (07:11)
[2022-01-10] MEDS: PROVENTIL 2.5 MG/3 ML NEB IH SCH ×5 (07:15→18:42)
--- NOTE | 2022-01-10 08:59 | PCM.HP ---
History of Present Illness - Chief Complaint Chief Complaint: COPD exacerbation. History of Present Illness: is a 76 year old female who presented to the ER with cough, cold and congestion with increasing shortness of breath. - Review of Systems Constitutional: Weakness Respiratory: Cough, Short Of Breath, Wheezing Cardiac: No Chest Pain, No Edema, No Syncope Abdominal/Gastrointestinal: No Abdominal Pain, No Nausea, No Vomiting, No Diarrhea Genitourinary Symptoms: No Dysuria Skin: No Rash All Other Systems: Reviewed and Negative Medications & Allergies Home Medications: Home Medication List Atorvastatin Calcium 80 mg PO HS 01/06/18 [History Confirmed 01/10/22] Levothyroxine Sodium 88 Mcg [Synthroid 88 Mcg] 88 mcg PO DAILY 01/06/18 [History Confirmed 01/10/22] Ezetimibe 10 mg [Zetia 10 MG] 10 mg PO HS 04/02/18 [History Confirmed 01/10/22] PANTOPRAZOLE 40 mg Tablet [Protonix 40MG Tablet] 40 mg PO BID 04/02/18 [History Confirmed 01/10/22] Hydralazine HCl 100 mg PO TID 11/23/19 [History Confirmed 01/10/22] Amiodarone HCl 200 mg PO DAILY 11/27/20 [History Confirmed 01/10/22] Ferrous Sulfate [Iron] 65 mg PO BID 11/27/20 [History Confirmed 01/10/22] Polyethylene Glycol 3350 [Miralax] 17 gm PO DAILY PRN PRN 11/27/20 [History Confirmed 01/10/22] Rivaroxaban [Xarelto] 20 mg PO EVENING MEAL 11/27/20 [History Confirmed 01/10/22] Amlodipine Besylate [Norvasc] 2.5 mg PO DAILY 12/31/20 [History Confirmed 01/10/22] Acetaminophen 500 mg PO Q4H PRN PRN 01/10/22 [History Confirmed 01/10/22] Alirocumab [Praluent Pen] 1 ea SQ UD 01/10/22 [History Confirmed 01/10/22] Bumetanide 0.5 mg PO QHS 01/10/22 [History Confirmed 01/10/22] Metoprolol Tartrate 25 mg PO BID 01/10/22 [History Confirmed 01/10/22] Potassium Chloride [Klor-Con M20] 20 meq PO DAILY 01/10/22 [History Confirmed 01/10/22] Allergies/Adverse Reactions: Allergies Allergy/AdvReac Type Severity Reaction Status Date / Time No Known Drug Allergies Allergy Verified 01/09/22 20:35 - Past Medical History Past Medical History: Yes Neurological History: Stroke ENT History: Cataracts Cardiac History: Aneurysm, Arrhythmia, Coronary Artery Disease, High Cholesterol, Hypertension Respiratory History: CHF, COPD, Pneumonia, Sleep Apnea Endocrine Medical History: Hypothyroidism, Liver Disease Musculoskelatal History: No Pertinent History GI Medical History: Gallbladder Disease, GI Bleed, Hepatitis, Hernia History: No Pertinent History, Renal Disease Pyscho-Social History: No Pertinent History Reproductive Disorders: Cervical Cancer Comment: HYSTERECTOMY WITH ONE OVARY REMOVAL, MULTIPLE HERNIA REPAIR, TEMPORAL ARTERITIS, CVA in 2013 and 2014, CHRONIC HYPOXEMIC RESPIRATORY FAILURE - Female History Are you now?: No - Past Surgical History Past Surgical History: Yes Neuro Surgical History: No Pertinent History Cardiac History: Other Respiratory Surgery: No Pertinent History GI Surgical History: Appendectomy, Cholecystectomy, Hernia Repair Genitourinary Surgical Hx: No Pertinent History Musculskeletal Surgical Hx: No Pertinent History Female Surgical History: Hysterectomy Other Surgical History: AAA repair, colonoscopy, EGD - Social History Smoking Status: Current every day smoker How long have you smoked: 50yrs Exposure to second hand smoke: Yes Alcohol: None Drug Use: none - Physical Exam Vital Signs: Vital Signs - 24 hr Temp Pulse Resp BP Pulse Ox 01/10/22 07:23 97.8 F 70 16 120/58 92 L 01/10/22 04:16 97.9 F 58 L 21 156/59 97 01/10/22 03:23 65 20 96 01/10/22 02:00 94 L 01/10/22 01:30 98.6 F 68 20 146/74 94 L 01/10/22 01:17 94 L 01/10/22 00:58 67 19 114/65 93 L 01/09/22 23:58 68 22 122/62 93 L 01/09/22 23:49 66 21 91 L 01/09/22 22:06 55 L 26 H 143/68 94 L 01/09/22 22:05 93 L 01/09/22 20:35 97.8 F 51 L 27 H 132/60 91 L General Appearance: no apparent distress, alert Neurologic Exam: alert, oriented x 3 Respiratory Exam: prolonged expirations, wheezing, No respiratory distress Cardiovascular Exam: regular rate/rhythm, normal heart sounds, normal peripheral pulses Gastrointestinal/Abdomen Exam: soft, normal bowel sounds, No tenderness, No mass Extremity Exam: normal inspection, normal range of motion, pelvis stable Skin Exam: normal color, warm, dry, No rash Results - Labs Lab/Micro Results: Lab Results-Last 24 Hours 01/09/22 01/09/22 01/09/22 Range/Units 00:15 21:54 21:54 WBC 12.1 H (4.0-10.5) K/mm3 RBC 3.85 L (4.1-5.4) M/mm3 Hgb 11.5 L (12.0-16.0) gm/dl Hct 37.0 (35-47) % MCV 96.1 (78-100) fl MCH 29.9 (26-32) pg MCHC 31.1 L (32-36) g/dl RDW 14.4 H (11.5-14.0) % Plt Count 308 (150-450) K/mm3 MPV 9.7 (7.5-11.0) fl Gran % 82.7 H (36.0-66.0) % Eos # (Auto) 0.10 (0-0.5) Absolute Lymphs (auto) 0.94 L (1.0-4.6) Absolute Monos (auto) 1.03 (0.0-1.3) Lymphocytes % 7.7 L (24.0-44.0) % Monocytes % 8.5 (0.0-12.0) % Eosinophils % 0.8 (0.00-5.0) % Basophils % 0.3 (0.0-0.4) % Absolute Granulocytes 10.02 H (1.4-6.9) Basophils # 0.04 (0-0.4) Sodium 137 (137-145) mmol/L Potassium 4.2 (3.5-5.1) mmol/L Chloride 105 (98-107) mmol/L Carbon Dioxide 20 L (22-30) mmol/L Anion Gap 16.2 H (5-15) MEQ/L BUN 43 H (7-17) mg/dL Creatinine 2.75 H (0.52-1.04) mg/dL Estimated GFR 17.8 ML/MIN Glucose 110 H (74-106) mg/dL Calcium 8.7 (8.4-10.2) mg/dL Total Bilirubin 0.70 (0.2-1.3) mg/dL AST 36 (14-36) U/L ALT 37 H (0-35) U/L Alkaline Phosphatase 152 H (38-126) U/L Troponin I (0.000-0.034) ng/mL Serum Total Protein 7.8 (6.3-8.2) g/dL Albumin 4.2 (3.5-5.0) g/dL Influenza Type A Ag NEGATIVE (NEGATIVE) Influenza Type B Ag NEGATIVE (NEGATIVE) RSV (PCR) NEGATIVE (Negative) SARS-CoV-2 (PCR) NEGATIVE (NEGATIVE) 01/09/22 01/10/22 01/10/22 Range/Units 21:54 00:15 04:00 WBC (4.0-10.5) K/mm3 RBC (4.1-5.4) M/mm3 Hgb (12.0-16.0) gm/dl Hct (35-47) % MCV (78-100) fl MCH (26-32) pg MCHC (32-36) g/dl RDW (11.5-14.0) % Plt Count (150-450) K/mm3 MPV (7.5-11.0) fl Gran % (36.0-66.0) % Eos # (Auto) (0-0.5) Absolute Lymphs (auto) (1.0-4.6) Absolute Monos (auto) (0.0-1.3) Lymphocytes % (24.0-44.0) % Monocytes % (0.0-12.0) % Eosinophils % (0.00-5.0) % Basophils % (0.0-0.4) % Absolute Granulocytes (1.4-6.9) Basophils # (0-0.4) Sodium (137-145) mmol/L Potassium (3.5-5.1) mmol/L Chloride (98-107) mmol/L Carbon Dioxide (22-30) mmol/L Anion Gap (5-15) MEQ/L BUN (7-17) mg/dL Creatinine (0.52-1.04) mg/dL Estimated GFR ML/MIN Glucose (74-106) mg/dL Calcium (8.4-10.2) mg/dL Total Bilirubin (0.2-1.3) mg/dL AST (14-36) U/L ALT (0-35) U/L Alkaline Phosphatase (38-126) U/L Troponin I 0.015 0.012 0.013 (0.000-0.034) ng/mL Serum Total Protein (6.3-8.2) g/dL Albumin (3.5-5.0) g/dL Influenza Type A Ag (NEGATIVE) Influenza Type B Ag (NEGATIVE) RSV (PCR) (Negative) SARS-CoV-2 (PCR) (NEGATIVE) 01/10/22 01/10/22 01/10/22 Range/Units 04:00 04:00 07:38 WBC 12.0 H (4.0-10.5) K/mm3 RBC 3.76 L (4.1-5.4) M/mm3 Hgb 11.2 L (12.0-16.0) gm/dl Hct 36.0 (35-47) % MCV 95.7 (78-100) fl MCH 29.8 (26-32) pg MCHC 31.1 L (32-36) g/dl RDW 14.3 H (11.5-14.0) % Plt Count 286 (150-450) K/mm3 MPV 9.7 (7.5-11.0) fl Gran % (36.0-66.0) % Eos # (Auto) (0-0.5) Absolute Lymphs (auto) (1.0-4.6) Absolute Monos (auto) (0.0-1.3) Lymphocytes % (24.0-44.0) % Monocytes % (0.0-12.0) % Eosinophils % (0.00-5.0) % Basophils % (0.0-0.4) % Absolute Granulocytes (1.4-6.9) Basophils # (0-0.4) Sodium 138 (137-145) mmol/L Potassium 4.3 (3.5-5.1) mmol/L Chloride 106 (98-107) mmol/L Carbon Dioxide 21 L (22-30) mmol/L Anion Gap 15.2 H (5-15) MEQ/L BUN 41 H (7-17) mg/dL Creatinine 2.62 H (0.52-1.04) mg/dL Estimated GFR 18.9 ML/MIN Glucose 122 H (74-106) mg/dL Calcium 8.6 (8.4-10.2) mg/dL Total Bilirubin 0.50 (0.2-1.3) mg/dL AST 29 (14-36) U/L ALT 31 (0-35) U/L Alkaline Phosphatase 147 H (38-126) U/L Troponin I < 0.012 (0.000-0.034) ng/mL Serum Total Protein 7.2 (6.3-8.2) g/dL Albumin 3.9 (3.5-5.0) g/dL Influenza Type A Ag (NEGATIVE) Influenza Type B Ag (NEGATIVE) RSV (PCR) (Negative) SARS-CoV-2 (PCR) (NEGATIVE) - Radiology Impressions Radiology Exams & Impressions: Radiology Procedures Category Date Time Status CHEST 1 VIEW (PORTABLE) Stat Exams 01/09/22 21:20 Taken - Other Procedures and Tests Respiratory Therapy 01/09/22 23:48 Respiratory Therapy Assessment DAILY 01/10/22 03:22 Oxygen Nasal Cannula 2 lpm Assessment/Plan (1) COPD exacerbation Current Visit: Yes Status: Acute Assessment & Plan: continue IV solu medrol, rocephin/zithromax and neb treatments. Code(s): J44.1 - CHRONIC OBSTRUCTIVE PULMONARY DISEASE W (ACUTE) EXACERBATION
--- NOTE | 2022-01-10 09:02 | XRAY ---
Indication: Short of breath. Comparison: January 04, 2021. Portable chest hyperinflated and clear again with small left mid lung calcified granuloma. Heart not enlarged. Bony thorax intact again with mild osteopenia and degenerative changes. Impression: Nonacute hyperinflated chest with chronic features.
[2022-01-10] MEDS ORDERED: Miralax Powder 17GM PACKET PO PRN (09:42)
[2022-01-10] MEDS: TYLENOL EXTRA STRENGTH 500 MG PO PRN ×2 (09:57→19:54)
[2022-01-10] MEDS ORDERED: NON-FORMULARY ITEM (Potassium Chloride [Klor-Con M20] 20 MEQ Tab.Er.Prt) PO SCH (10:00)
[2022-01-10] MEDS ORDERED: NON-FORMULARY ITEM (Amlodipine Besylate [Norvasc] 2.5 MG Tablet) PO SCH (10:00)
[2022-01-10] MEDS ORDERED: ROCEPHIN 2 Gm-D5w 50ML BAG** 2 G/50 ML IVPB IV SCH (10:00)
[2022-01-10] MEDS: NORVASC 5 MG PO SCH (10:52)
[2022-01-10] MEDS: Protonix 40MG Tablet PO SCH ×2 (10:52→21:59)
[2022-01-10] MEDS: Klor Con 10 MEQ PO SCH (10:52)
[2022-01-10] MEDS: Cordarone 200 MG PO SCH (10:52)
[2022-01-10] MEDS: Lopressor 25MG Tab PO SCH ×2 (10:53→21:59)
[2022-01-10] MEDS: SYNTHROID 88 MCG PO SCH (10:54)
[2022-01-10] MEDS ORDERED: NON-FORMULARY ITEM (Rivaroxaban [Xarelto] 20 MG Tablet) PO SCH (18:00)
[2022-01-10] MEDS: XARELTO 10 MG TABLET PO SCH (18:04)
[2022-01-10 21:09] LABS: Appearance CLEAR (CLEAR); Bilirubin NEGATIVE (NEGATIVE); Epithelial Cells RARE /HPF (FEW); Glucose NEGATIVE (NEGATIVE); Ketones NEGATIVE (NEGATIVE); Mucus SLIGHT /HPF (NEGATIVE); Nitrite NEGATIVE (NEGATIVE); Ph 5.5 (5-6); Protein,Urine Dip 30 (Negative); RBC 0-2 /HPF (0-2); RBC NEGATIVE Ery/ul (0-5); Urobilinogen 0.2 mg/dL (0-1); WBC 0-2 /HPF (0-5)
[2022-01-10 21:10] LABS: Dipstick done @ ? MAIN LAB; Urine Cultured Indicated? NO
[2022-01-10] MEDS: ROCEPHIN 1 Gm-D5w 50 ml Bag** 1 G/50 ML IVPB IV SCH (21:56)
[2022-01-10] MEDS: BUMEX 1 MG PO SCH (21:58)
[2022-01-10] MEDS: ZOCOR 20MG PO SCH (21:59)
[2022-01-10] MEDS: Zithromax 500 MG/ 250 ML NaCl Premix 500 MG/250 ML IVPB IV SCH (22:00)
[2022-01-10] MEDS ORDERED: NON-FORMULARY ITEM (Atorvastatin Calcium [Atorvastatin Calcium] 80 MG Tablet) PO SCH (22:00)
[2022-01-10] MEDS ORDERED: NON-FORMULARY ITEM (Bumetanide [Bumetanide] 0.5 MG Tablet) PO SCH (22:00)
[2022-01-11] MEDS: TYLENOL EXTRA STRENGTH 500 MG PO PRN ×3 (00:54→23:57)
[2022-01-11] MEDS: solu-MEDROL 60 MG, Sterile H2O 10 ml 2 ML IV SCH ×4 (00:55→05:53)
[2022-01-11 05:15] LABS: Hematocrit 32.7 % (35-47); Hemoglobin 10.2 gm/dl (12.0-16.0); Mean Cell Volume 95.6 fl (78-100); Mean Corpuscular Hemoglobin 29.8 pg (26-32); Mean Corpuscular Hgb Concent. 31.2 g/dl (32-36); Mean Platelet Volume 9.4 fl (7.5-11.0); Platelet Count 325 K/mm3 (150-450); Red Blood Count 3.42 M/mm3 (4.1-5.4); Red Cell Distribution Width 14.1 % (11.5-14.0); White Blood Count 22.7 K/mm3 (4.0-10.5)
[2022-01-11 06:04] LABS: Calcium 8.9 mg/dL (8.4-10.2); Creatinine 1 2.48 mg/dL (0.52-1.04); EST GLOMERULAR FILTRATION RATE 20.1 ML/MIN; Potassium 4.6 mmol/L (3.5-5.1)
[2022-01-11 07:11] LABS: BAND 13 % (0.0-2.0); Lymphocytes 1 % (24-44); Monocyte 2 % (0.0-12.0); Platelet Estimate NORMAL (NORMAL); Total Cells Counted 100; Toxic Granulation 2+
[2022-01-11] MEDS: PROVENTIL 2.5 MG/3 ML NEB IH SCH ×4 (07:25→18:55)
--- NOTE | 2022-01-11 07:43 | PCM.NOTE ---
Date and Time: 01/11/22 0742 Subjective Assessment: patient is feeling some better, still requiring oxygen but feels her cough and congestion are improved, steroids are making her feel shakey Objective Exam General Appearance: no apparent distress Neurologic Exam: alert, oriented x 3 Respiratory Exam: diminished breath sounds, prolonged expirations, No accessory muscle use, No crackles/rales, No rhonchi, No wheezing Cardiovascular Exam: regular rate/rhythm, normal heart sounds Gastrointestinal/Abdomen Exam: soft, No tenderness, No mass Extremity Exam: normal inspection, normal range of motion OBJECTIVE DATA Vital Signs: Vital Signs - 24 hr Temp Pulse Resp BP Pulse Ox 01/11/22 07:18 97.5 F 56 L 17 129/60 93 L 01/11/22 04:00 97.9 F 65 22 126/58 94 L 01/10/22 23:41 97.8 F 66 22 118/57 93 L 01/10/22 20:00 98.1 F 79 25 H 121/58 94 L 01/10/22 18:43 73 20 93 L 01/10/22 15:27 97.2 F 71 22 125/60 92 L 01/10/22 14:15 69 16 94 L 01/10/22 10:55 97.8 F 82 18 123/57 94 L Pain Assessment - Last Documented Pain Intensity 0 Pain Scale Used 0-10 Pain Scale Intake and Output: Intake & Output 01/08/22 01/09/22 01/10/22 01/11/22 11:59 11:59 11:59 11:59 Intake Total 760 Output Total 200 Balance 560 Weight 59.2 kg Lab Results: Lab Results-Last 24 Hours 01/10/22 01/10/22 01/10/22 Range/Units 07:38 08:46 20:10 WBC (4.0-10.5) K/mm3 RBC (4.1-5.4) M/mm3 Hgb (12.0-16.0) gm/dl Hct (35-47) % MCV (78-100) fl MCH (26-32) pg MCHC (32-36) g/dl RDW (11.5-14.0) % Plt Count (150-450) K/mm3 MPV (7.5-11.0) fl Segmented Neutrophils (36.0-66.0) % Band Neutrophils (0.0-2.0) % Lymphocytes (Manual) (24-44) % Monocytes (Manual) (0.0-12.0) % Toxic Granulation Platelet Estimate (NORMAL) RBC Morphology Sodium (137-145) mmol/L Potassium (3.5-5.1) mmol/L Chloride (98-107) mmol/L Carbon Dioxide (22-30) mmol/L Anion Gap (5-15) MEQ/L BUN (7-17) mg/dL Creatinine (0.52-1.04) mg/dL Estimated GFR ML/MIN Glucose (74-106) mg/dL Calcium (8.4-10.2) mg/dL Troponin I < 0.012 < 0.012 (0.000-0.034) ng/mL Urinalys Dipstick Clnc MAIN LAB Urine Color YELLOW (YELLOW) Urine Appearance CLEAR (CLEAR) Urine pH 5.5 (5-6) Ur Specific [place] 1.020 (1.005-1.025) POC Urine Protein Conf 30 (Negative) Urine Ketones NEGATIVE (NEGATIVE) Urine Nitrite NEGATIVE (NEGATIVE) Urine Bilirubin NEGATIVE (NEGATIVE) Urine Urobilinogen 0.2 (0-1) mg/dL Urine Leukocytes NEGATIVE (NEGATIVE) Urine WBC (Auto) 0-2 (0-5) /HPF Urine RBC (Auto) 0-2 (0-2) /HPF U Epithel Cells (Auto) RARE (FEW) /HPF Urine Bacteria (Auto) NONE (NEGATIVE) /HPF Urine RBC NEGATIVE (0-5) Theo/ul Urine Mucus (Auto) SLIGHT (NEGATIVE) /HPF Ur Culture Indicated? NO Urine Glucose NEGATIVE (NEGATIVE) mg/dL 01/11/22 01/11/22 Range/Units 05:08 05:08 WBC 22.7 H (4.0-10.5) K/mm3 RBC 3.42 L (4.1-5.4) M/mm3 Hgb 10.2 L (12.0-16.0) gm/dl Hct 32.7 L (35-47) % MCV 95.6 (78-100) fl MCH 29.8 (26-32) pg MCHC 31.2 L (32-36) g/dl RDW 14.1 H (11.5-14.0) % Plt Count 325 (150-450) K/mm3 MPV 9.4 (7.5-11.0) fl Segmented Neutrophils 84 H (36.0-66.0) % Band Neutrophils 13 H (0.0-2.0) % Lymphocytes (Manual) 1 L (24-44) % Monocytes (Manual) 2 (0.0-12.0) % Toxic Granulation 2+ Platelet Estimate NORMAL (NORMAL) RBC Morphology NORMAL Sodium 138 (137-145) mmol/L Potassium 4.6 (3.5-5.1) mmol/L Chloride 108 H (98-107) mmol/L Carbon Dioxide 20 L (22-30) mmol/L Anion Gap 15.0 (5-15) MEQ/L BUN 49 H (7-17) mg/dL Creatinine 2.48 H (0.52-1.04) mg/dL Estimated GFR 20.1 ML/MIN Glucose 136 H (74-106) mg/dL Calcium 8.9 (8.4-10.2) mg/dL Troponin I (0.000-0.034) ng/mL Urinalys Dipstick Clnc Urine Color (YELLOW) Urine Appearance (CLEAR) Urine pH (5-6) Ur Specific [place] (1.005-1.025) POC Urine Protein Conf (Negative) Urine Ketones (NEGATIVE) Urine Nitrite (NEGATIVE) Urine Bilirubin (NEGATIVE) Urine Urobilinogen (0-1) mg/dL Urine Leukocytes (NEGATIVE) Urine WBC (Auto) (0-5) /HPF Urine RBC (Auto) (0-2) /HPF U Epithel Cells (Auto) (FEW) /HPF Urine Bacteria (Auto) (NEGATIVE) /HPF Urine RBC (0-5) Theo/ul Urine Mucus (Auto) (NEGATIVE) /HPF Ur Culture Indicated? Urine Glucose (NEGATIVE) mg/dL Radiology Exams: Radiology Procedures Category Date Time Status CHEST 1 VIEW (PORTABLE) Stat Exams 01/09/22 21:20 Completed Assessment/Plan (1) COPD exacerbation Current Visit: Yes Status: Acute Assessment & Plan: improving, will reduce steroid dose and attempt to wean from oxygen. home when able to tolerate room air Code(s): J44.1 - CHRONIC OBSTRUCTIVE PULMONARY DISEASE W (ACUTE) EXACERBATION
[2022-01-11] MEDS: Lopressor 25MG Tab PO SCH ×2 (09:20→22:26)
[2022-01-11] MEDS: Klor Con 10 MEQ PO SCH (09:20)
[2022-01-11] MEDS: NORVASC 5 MG PO SCH (09:20)
[2022-01-11] MEDS: Cordarone 200 MG PO SCH (09:21)
[2022-01-11] MEDS: SYNTHROID 88 MCG PO SCH (09:21)
[2022-01-11] MEDS: Protonix 40MG Tablet PO SCH ×2 (09:21→22:25)
[2022-01-11] MEDS: solu-MEDROL IV SCH ×3 (09:22→22:26)
[2022-01-11] MEDS: XARELTO 10 MG TABLET PO SCH (17:11)
[2022-01-11] MEDS: BUMEX 1 MG PO SCH (22:25)
[2022-01-11] MEDS: ZOCOR 20MG PO SCH (22:26)
[2022-01-11] MEDS: Zithromax 500 MG/ 250 ML NaCl Premix 500 MG/250 ML IVPB IV SCH (22:26)
[2022-01-11] MEDS: ROCEPHIN 1 Gm-D5w 50 ml Bag** 1 G/50 ML IVPB IV SCH (22:27)
--- NOTE | 2022-01-12 08:10 | PCM.DS ---
Discharge Summary Date of Admission: 01/10/22 01:29 Admitting Physician: PRANAV HELM Primary Care Provider: PRANAV HELM Allergies Allergies No Known Drug Allergies Allergy (Verified 01/09/22 20:35) Hospital Summary - Hospital Course Hospital Course: patient was admitted with cough and shortness of breath, treated for copd exacerbation. still requiring oxygen, was on previously at home but doesn't have any more. home today with home oxygen, nebs, abx and steroids. - Vitals & Intake/Output Vital Signs: Vital Signs Temperature 97.7 F 01/12/22 04:00 Pulse Rate 67 01/12/22 07:38 Respiratory Rate 12 01/12/22 07:38 Blood Pressure 126/61 01/12/22 04:00 O2 Sat by Pulse Oximetry 90 L 01/12/22 07:38 Intake & Output: Intake & Output 01/09/22 01/10/22 01/11/22 01/12/22 11:59 11:59 11:59 11:59 Intake Total 760 660 Output Total 200 800 Balance 560 -140 Weight 59.2 kg 60.1 kg 60.4 kg - Lab Result Diagrams: 01/11/22 05:08 01/11/22 05:08 Micro Results-Entire Visit: Microbiology 01/09/22 00:15 Blood Culture - Preliminary Blood NO GROWTH TO DATE 01/09/22 21:45 Blood Culture - Preliminary Blood NO GROWTH TO DATE - Procedures and Test Procedures and Tests throughout Hospitalization: Therapy Orders & Screens 01/09/22 23:48 Respiratory Therapy Assessment DAILY Comment: 01/10/22 02:19 RT Screen per Nursing Assess ONCE Comment: Protocol Order Physician Instructions: Greater than 3 points order RT Admission Screen Reason For Exam: Triggered on Admission Diagnosis: COPD exacerbation. Diagnosis: COPD exacerbation. Pneumonia: Yes Home O2: No Asthma: No CHF: Yes Home CPAP/BIPAP: Yes Home Nebs/MDI: No Total Points: 11 Smoking Cessation Education ONCE Comment: Diagnosis: COPD exacerbation. Smoking Status: Current every day smoker How long have you smoked: 50yrs Have you smoked in the past 12 months: Yes Approximately how many cigarettes per day: 5 Do you dip or chew tobacco: No 01/10/22 03:22 Oxygen Nasal Cannula 2 lpm Comment: Diagnosis: COPD exacerbation. 01/11/22 09:13 RT Miscellaneous Order ROUTINE Comment: Physician Instructions: Reason For Exam: wean off oxygen Diagnosis: COPD exacerbation. Discharge Exam General Appearance: no apparent distress Neurologic Exam: alert, oriented x 3 Respiratory Exam: diminished breath sounds, prolonged expirations, No wheezing Cardiovascular Exam: regular rate/rhythm, normal heart sounds Gastrointestinal/Abdomen Exam: soft, No tenderness, No mass Extremity Exam: normal inspection, normal range of motion Final Diagnosis/Problem List - Final Discharge Diagnosis/Problem (1) COPD exacerbation Current Visit: Yes Status: Acute Code(s): J44.1 - CHRONIC OBSTRUCTIVE PULMONARY DISEASE W (ACUTE) EXACERBATION (2) COPD (chronic obstructive pulmonary disease) Current Visit: Yes Status: Acute (3) Chronic hypoxemic respiratory failure Current Visit: Yes Status: Acute Assessment & Plan: qualify for home oxygen. - Discharge Disposition: Home, Self-Care Condition: Stable Prescriptions: New Nebulizer and Compressor [[place] Choice Nebulizer] 1 each UD #1 unit Prednisone 20 mg [Deltasone 20 mg] 20 mg PO UD #18 tablet levoFLOXacin 1 tab PO DAILY #5 tablet Albuterol 2.5 mg/3 ml Neb [Proventil 2.5 mg/3 ml Neb] 2.5 mg IH QIDPRN PRN #100 unit PRN Reason: Cough Continue Atorvastatin Calcium 80 mg PO HS Levothyroxine Sodium 88 Mcg [Synthroid 88 Mcg] 88 mcg PO DAILY Ezetimibe 10 mg [Zetia 10 MG] 10 mg PO HS PANTOPRAZOLE 40 mg Tablet [Protonix 40MG Tablet] 40 mg PO BID Hydralazine HCl 100 mg PO TID Polyethylene Glycol 3350 [Miralax] 17 gm PO DAILY PRN PRN PRN Reason: Constipation Ferrous Sulfate [Iron] 65 mg PO BID Amiodarone HCl 200 mg PO DAILY Rivaroxaban [Xarelto] 20 mg PO EVENING MEAL Amlodipine Besylate [Norvasc] 2.5 mg PO DAILY Potassium Chloride [Klor-Con M20] 20 meq PO DAILY Acetaminophen 500 mg PO Q4H PRN PRN PRN Reason: fever or pain Alirocumab [Praluent Pen] 1 ea SQ UD Bumetanide 0.5 mg PO QHS Metoprolol Tartrate 25 mg PO BID Follow up with: PRANAV HELM MD [Primary Care Provider] -
[2022-01-12 08:37] VITALS: BP 121/60; PULSE 69; O2SAT 93
== END 2022-01-12 09:49 | disposition home or self-care (01) ==
LOC: ED 20:33 → MED SURG 01-10 01:29
PROVIDERS: ADMIT Family Medicine; ATTEND Family Medicine
DX: J44.1 Chronic obstructive pulmonary disease with (acute) exacerbation (principal); J96.11 Chronic respiratory failure with hypoxia; I11.0 Hypertensive heart disease with heart failure; I50.9 Heart failure, unspecified; I25.10 Atherosclerotic heart disease of native coronary artery without angina pectoris; E78.00 Pure hypercholesterolemia, unspecified; Z72.0 Tobacco use; Z20.828 Contact with and (suspected) exposure to other viral communicable diseases; Z79.899 Other long term (current) drug therapy; Z85.41 Personal history of malignant neoplasm of cervix uteri; Z99.81 Dependence on supplemental oxygen
CPT/HCPCS: 0241U; 36000; 36415; 71045; 80048; 80053; 81015; 84484; 85025; 85027; 87040; 93005; 93041; 93268; 94640; 94760; 94762; 96365; 96374; 99285; G0378; J0456; J0696; J2920; J2930; J7609; A9270-GY

== ENCOUNTER 2023-03-28 18:29 | Emergency (ER) | payer MEDICARE ==
[2023-03-28 19:04] LABS: Absolute Neutrophil Ct (ANC) 4.67 x10^3/uL (1.4-6.9); BASOPHIL % 0.4 % (0.0-0.4); Basophil (Absolute #) 0.02 x10^3/uL (0-0.4); Eosinophil % 2.3 % (0.00-5.0); Eosinophil (Absolute #) 0.13 x10^3/uL (0-0.5); Hematocrit 30.1 % (35-47); Hemoglobin 9.4 g/dL (12.0-16.0); IMMATURE GRAN # 0.06 x10^3u/L (0.00-0.03); IMMATURE GRAN % 1.1 % (0.00-0.4); Lymphocyte (Absolute #) 0.54 x10^3/uL (1.0-4.6); Lymphocytes % 9.7 % (24.0-44.0); Mean Cell Volume 94.4 fL (78-100); Mean Corpuscular Hemoglobin 29.5 pg (26-32); Mean Corpuscular Hgb Concent. 31.2 g/dL (32-36); Mean Platelet Volume 8.3 fL (7.5-11.0); Monocyte (Absolute #) 0.14 x10^3/uL (0.0-1.3); Monocytes % 2.5 % (0.0-12.0); Platelet Count 247 x10^3/uL (150-450); Red Blood Count 3.19 x10^6/uL (4.1-5.4); White Blood Count 5.6 x10^3/uL (4.0-10.5)
[2023-03-28 19:07] VITALS: TEMP 98.5
[2023-03-28 19:28] LABS: INR 1.08 (0.8-3.0); PROTIME 11.7 SECONDS (9.4-12.5); PTT 45.8 SECONDS (25.1-36.5)
[2023-03-28 19:38] VITALS: BP 154/81; PULSE 72; RESP 18; O2SAT 96
[2023-03-28] MEDS ORDERED: TYLENOL 325 MG PO STA (19:56)
--- NOTE | 2023-03-28 19:57 | ERPHSYRPT ---
- History of Present Illness Time Seen by Provider: 03/28/23 18:35 Source: patient, family Exam Limitations: no limitations Patient Subjective Stated Complaint: Pt reports she has not been feeling well for approx one month due to fatigue. However today around 3:30pm-4:30pm patient developed headache and numbness on right side of face. Complains of feeling weak, bilat lower extremities extreme weakness per pt report, tingling in toes on bilat feet and fingertips of right hand. Triage Nursing Assessment: Pt alert and oriented x3. No apparent respiratory distress. Wheeled to ED cot by spouse, transfered with assist x1 weak gait. Accompanied by spouse. No drift of any extremities, no facial droop or new weakness that is new per pt from previous strokes. Physician History: 77-year-old female with history of hypertension, hyperlipidemia, stroke with right-sided residual weakness, tobacco abuse, COPD, atrial fibrillation on Xarelto, presenting to the ER with chief complaint of worsening headaches since 3:30 PM today with right-sided facial numbness. Patient reports having symptoms similar to last time when she had a stroke. Patient reports seeing creased tingly sensation in the right hand fingers and toes bilaterally. No other focal weakness. No difficulty speech or visual disturbance reported. Denies any chest pain palpitations or shortness of breath. Allergies/Adverse Reactions: No Known Drug Allergies Allergy (Verified 01/02/23 12:07) Home Medications: Atorvastatin Calcium 80 mg PO HS 01/06/18 [History] Levothyroxine Sodium 88 Mcg [Synthroid 88 Mcg] 88 mcg PO DAILY 01/06/18 [History] Ezetimibe 10 mg [Zetia 10 MG] 10 mg PO HS 04/02/18 [History] PANTOPRAZOLE 40 mg Tablet [Protonix 40MG Tablet] 40 mg PO BID 04/02/18 [H istory] Hydralazine HCl 100 mg PO TID 11/23/19 [History] Ferrous Sulfate [Iron] 65 mg PO BID 11/27/20 [History] Polyethylene Glycol 3350 [Miralax] 17 gm PO DAILY PRN PRN 11/27/20 [History] Acetaminophen 500 mg PO Q4H PRN PRN 01/10/22 [History] Alirocumab [Praluent Pen] 1 ea SQ UD 01/10/22 [History] Bumetanide 0.5 mg PO QHS 01/10/22 [History] Potassium Chloride [Klor-Con M20] 20 meq PO DAILY 01/10/22 [History] Amlodipine Besylate 2.5 mg PO DAILY 03/28/23 [History] Fluticasone/Umeclidin/Vilanter [Trelegy Ellipta 200-62.5-25] 200 mcg IH DAILY 03/28/23 [History] Rivaroxaban [Xarelto] 15 mg PO DAILY 03/28/23 [History] Hx Tetanus, Diphtheria Vaccination/Date Given: Yes Hx Influenza Vaccination/Date Given: No Hx Pneumococcal Vaccination/Date Given: Yes Travel Risk - International Travel Have you traveled outside of the country in past 3 weeks: No - Coronavirus Screening Are you exhibiting any of the following symptoms?: No Close contact with a COVID-19 positive Pt in past 14-21 Days: No - Vaccine Status Have you recieved a Covid-19 vaccination: Yes Roll [employer]: [employer] - Vaccination Dates Date of 2cond Vaccination (if applicable): 10/30/2020 - Review of Systems Constitutional: Fatigue, Weakness Eyes: No Symptoms Ears, Nose, & Throat: No Symptoms Respiratory: Dyspnea Cardiac: No Symptoms Abdominal/Gastrointestinal: No Symptoms Genitourinary Symptoms: No Symptoms Musculoskeletal: Arthralgias Skin: No Symptoms Neurological: Headache, Parasthesia Endocrine: No Symptoms Hematologic/Lymphatic: No Symptoms - Past Medical History Pertinent Past Medical History: Yes Neurological History: Stroke ENT History: Cataracts Cardiac History: Arrhythmia, High Cholesterol Respiratory History: COPD Endocrine Medical History: Hypothyroidism Musculoskeletal History: No Pertinent History GI Medical History: Gallbladder Disease, GI Bleed, Hepatitis, Hernia History: No Pertinent History, Renal Disease Psycho-Social History: No Pertinent History Female Reproductive Disorders: Cervical Cancer Other Medical History: CVA 4 YEARS AGO, AND 1.5 YEARS AGO. INSUFFICENT KIDNEYS. R UE GETS COLD. anemia - Past Surgical History Past Surgical History: Yes Neuro Surgical History: No Pertinent History Cardiac: Other Respiratory: No Pertinent History Gastrointestinal: Appendectomy, Cholecystectomy, Hernia Repair Genitourinary: No Pertinent History Musculoskeletal: No Pertinent History Female Surgical History: Hysterectomy Other Surgical History: AAA repair, colonoscopy, EGD - Social History Smoking Status: Current every day smoker How long have you smoked: 50yrs Exposure to second hand smoke: Yes Drug Use: none Patient Lives Alone: No - Nursing Vital Signs Nursing Vital Signs: Initial Vital Signs Temperature 98.5 F 03/28/23 18:37 Pulse Rate 73 03/28/23 18:37 Respiratory Rate 17 03/28/23 18:37 Blood Pressure 147/57 03/28/23 18:37 O2 Sat by Pulse Oximetry 99 03/28/23 18:37 Pain Scale Pain Intensity 5 - Henderson Coma Scale Best Eye Response (Henderson): (4) open spontaneously Best Verbal Response (Alejandro): (5) oriented Best Motor Response (Henderson): (6) obeys commands Alejandro Total: 15 - Physical Exam General Appearance: no apparent distress, alert Eye Exam: bilateral eye: normal inspection, PERRL, EOMI Ears, Nose, Throat Exam: normal ENT inspection, TMs normal, pharynx normal, moist mucous membranes Neck Exam: normal inspection, non-tender, supple, full range of motion, No meningismus Respiratory: wheezing Cardiovascular: regular rate/rhythm, normal heart sounds Gastrointestinal: soft, normal bowel sounds, No tenderness Back Exam: normal inspection Extremity Exam: normal inspection, normal range of motion Mental Status: alert, oriented x 3, 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 Exam: normal hearing, normal speech, PERRL Coordination/Gait: normal finger to nose, normal cerebellar function Motor/Sensory: no motor deficit, no sensory deficit, No pronator drift (R), No pronator drift (L) DTR: bicep (R): 2+, bicep (L): 2+, knee (R): 2+, knee (L): 2+ Skin Exam: normal color SpO2 Interpretation: normal SpO2: 96 O2 Delivery: Room Air Ordered Tests: Active Orders 24 hr Category Date Time Status AMA [Release AMA] OM.NOW Care 03/28/23 22:35 Active EKG-ER Only STAT Care 03/28/23 18:35 Completed IV Insertion STAT Care 03/28/23 18:35 Completed NPO (ED) STAT Care 03/28/23 18:35 Completed CHEST 1 VIEW (PORTABLE) Stat Exams 03/28/23 18:35 Taken HEAD WITHOUT CONTRAST [CT] Stat Exams 03/28/23 18:32 Taken CBC W DIFF Stat Lab 03/28/23 18:35 Completed CMP Stat Lab 03/28/23 19:00 Completed PROTIME WITH INR Stat Lab 03/28/23 19:00 Completed PTT Stat Lab 03/28/23 19:00 Completed TROPONIN Q4H Lab 03/28/23 19:00 Completed TROPONIN Q4H Lab 03/28/23 22:45 Ordered UA W/RFX UR CULTURE Stat Lab 03/28/23 19:20 Completed Medication Summary Discontinued Medications Generic Name Dose Route Start Last Admin Trade Name Rishi PRN Reason Stop Dose Admin Acetaminophen 975 mg 03/28/23 19:56 03/28/23 20:06 Acetaminophen 325 Mg Tablet PO 03/28/23 19:57 975 mg STAT STA Administration Acetaminophen Confirm 03/28/23 20:05 Acetaminophen 325 Mg Tablet Administered 03/28/23 20:06 Dose 975 mg .ROUTE .[employer] ONE Lab/Rad Data: Laboratory Result Diagrams 03/28/23 18:35 03/28/23 19:00 Laboratory Results 03/28/23 03/28/23 03/28/23 Range/Units 19:20 19:00 19:00 WBC (4.0-10.5) x10^3/uL RBC (4.1-5.4) x10^6/uL Hgb (12.0-16.0) g/dL Hct (35-47) % MCV (78-100) fL MCH (26-32) pg MCHC (32-36) g/dL RDW (11.5-14.0) % Plt Count (150-450) x10^3/uL MPV (7.5-11.0) fL Gran % (36.0-66.0) % Immature Gran % (Auto) (0.00-0.4) % Nucleat RBC Rel Count (0.00-0.1) % Eos # (Auto) (0-0.5) x10^3/uL Immature Gran # (Auto) (0.00-0.03) x10^3u/L Absolute Lymphs (auto) (1.0-4.6) x10^3/uL Absolute Monos (auto) (0.0-1.3) x10^3/uL Absolute Nucleated RBC (0.00-0.01) x10^3u/L Lymphocytes % (24.0-44.0) % Monocytes % (0.0-12.0) % Eosinophils % (0.00-5.0) % Basophils % (0.0-0.4) % Absolute Granulocytes (1.4-6.9) x10^3/uL Basophils # (0-0.4) x10^3/uL PT 11.7 (9.4-12.5) SECONDS INR 1.08 (0.8-3.0) APTT 45.8 H (25.1-36.5) SECONDS Sodium (137-145) mmol/L Potassium (3.5-5.1) mmol/L Chloride (98-107) mmol/L Carbon Dioxide (22-30) mmol/L Anion Gap (5-15) MEQ/L BUN (7-17) mg/dL Creatinine (0.52-1.04) mg/dL Estimated GFR ML/MIN Glucose (74-106) mg/dL Calcium (8.4-10.2) mg/dL Total Bilirubin (0.2-1.3) mg/dL AST (14-36) U/L ALT (0-35) U/L Alkaline Phosphatase (38-126) U/L Troponin I 0.013 (0.000-0.034) ng/mL Serum Total Protein (6.3-8.2) g/dL Albumin (3.5-5.0) g/dL Urine Color Yellow (Yellow) Urine Appearance Clear (Clear) Urine pH 7.5 (4.6-8.0) Ur Specific [place] <=1.005 (1.005-1.030) Urine Protein Trace A (Negative) Urine Glucose (UA) Negative (Negative) mg/dL Urine Ketones Negative (Negative) Urine Blood Negative (Negative) Urine Nitrite Negative (Negative) Urine Bilirubin Negative (Negative) Urine Urobilinogen 0.2 (0.2) mg/dL Ur Leukocyte Esterase Negative (Negative) U Hyaline Cast (Auto) NONE SEEN (0-2) /LPF Urine Microscopic RBC 0-2 (0-5) /HPF Urine Microscopic WBC 0-2 (0-5) /HPF Ur Epithelial Cells Few (None Seen) /HPF Urine Bacteria None Seen (None Seen) /HPF Urine Culture Reflexed NO (NO) 03/28/23 03/28/23 Range/Units 19:00 18:35 WBC 5.6 (4.0-10.5) x10^3/uL RBC 3.19 L (4.1-5.4) x10^6/uL Hgb 9.4 L (12.0-16.0) g/dL Hct 30.1 L (35-47) % MCV 94.4 (78-100) fL MCH 29.5 (26-32) pg MCHC 31.2 L (32-36) g/dL RDW 16.0 H (11.5-14.0) % Plt Count 247 (150-450) x10^3/uL MPV 8.3 (7.5-11.0) fL Gran % 84.0 H (36.0-66.0) % Immature Gran % (Auto) 1.1 H (0.00-0.4) % Nucleat RBC Rel Count 0.0 (0.00-0.1) % Eos # (Auto) 0.13 (0-0.5) x10^3/uL Immature Gran # (Auto) 0.06 H (0.00-0.03) x10^3u/L Absolute Lymphs (auto) 0.54 L (1.0-4.6) x10^3/uL Absolute Monos (auto) 0.14 (0.0-1.3) x10^3/uL Absolute Nucleated RBC 0.00 (0.00-0.01) x10^3u/L Lymphocytes % 9.7 L (24.0-44.0) % Monocytes % 2.5 (0.0-12.0) % Eosinophils % 2.3 (0.00-5.0) % Basophils % 0.4 (0.0-0.4) % Absolute Granulocytes 4.67 (1.4-6.9) x10^3/uL Basophils # 0.02 (0-0.4) x10^3/uL PT (9.4-12.5) SECONDS INR (0.8-3.0) APTT (25.1-36.5) SECONDS Sodium 133 L (137-145) mmol/L Potassium 3.9 (3.5-5.1) mmol/L Chloride 100 (98-107) mmol/L Carbon Dioxide 22 (22-30) mmol/L Anion Gap 14.1 (5-15) MEQ/L BUN 26 H (7-17) mg/dL Creatinine 1.82 H (0.52-1.04) mg/dL Estimated GFR 28.6 ML/MIN Glucose 97 (74-106) mg/dL Calcium 8.5 (8.4-10.2) mg/dL Total Bilirubin 0.40 (0.2-1.3) mg/dL AST 30 (14-36) U/L ALT 18 (0-35) U/L Alkaline Phosphatase 118 (38-126) U/L Troponin I (0.000-0.034) ng/mL Serum Total Protein 7.3 (6.3-8.2) g/dL Albumin 3.3 L (3.5-5.0) g/dL Urine Color (Yellow) Urine Appearance (Clear) Urine pH (4.6-8.0) Ur Specific [place] (1.005-1.030) Urine Protein (Negative) Urine Glucose (UA) (Negative) mg/dL Urine Ketones (Negative) Urine Blood (Negative) Urine Nitrite (Negative) Urine Bilirubin (Negative) Urine Urobilinogen (0.2) mg/dL Ur Leukocyte Esterase (Negative) U Hyaline Cast (Auto) (0-2) /LPF Urine Microscopic RBC (0-5) /HPF Urine Microscopic WBC (0-5) /HPF Ur Epithelial Cells (None Seen) /HPF Urine Bacteria (None Seen) /HPF Urine Culture Reflexed (NO) - Progress Progress: improved Progress Note: 03/28/23 19:56 77-year-old female with history of hypertension, hyperlipidemia, stroke with right-sided residual weakness, tobacco abuse, COPD, atrial fibrillation on Xarelto, presenting to the ER with chief complaint of worsening headaches since 3:30 PM today with right-sided facial numbness. Patient reports having symptoms similar to last time when she had a stroke. Patient reports seeing creased tingly sensation in the right hand fingers and toes bilaterally. No other focal weakness. No difficulty speech or visual disturbance reported. Denies any chest pain palpitations or shortness of breath. I did not appreciate any focal new weakness except for some tingling and numbness on the right face. She is given Tylenol for symptomatic relief. CT head is obtained per stroke protocol. Patient is on Xarelto, not a candidate for tPA. Tele neuro consult is promptly ordered. 03/28/23 22:[address] a [address] head. Normal white count. Stable CKD. Given Tylenol for symptomatic relief. Headache is resolved. Patient later on reported she is back to her normal. Neuro consult is still pending. Patient does not want to stay in the hospital at all, she wants to go home and wants to follow-up outpatient. Patient is not confused or altered at all. I have discussed the risk of leaving full work-up and worsening of condition which could lead to permanent disability even and she does not want to stay, adamant about leaving. was involved in decision making. I have spent almost 25 minutes discussing and trying to convince but they still want to leave. She left the ER in a stable condition. She is advised to follow-up outpatient with primary care and neurology. Discussed symptoms of worsening needing return to ER which she seems understanding. 03/28/23 22:40 Counseled pt/family regarding: lab results, diagnosis, rad results Medical Desision Making - Independent Historian Additional History obtained from: Spouse - Risk of complications The pt has a high risk of morbidity or mortality based on: Decision regarding hospitilization or escalation of hosp level of care - Departure Departure Disposition: AMA Clinical Impression: Numbness Condition: Stable Critical Care Time: No Referrals: PRANAV HELM MD [Primary Care Provider] - Follow up/PCP as directed
[2023-03-28 20:04] LABS: ALBUMIN 3.3 g/dL (3.5-5.0); ANION GAP 14.1 MEQ/L (5-15); BILIRUBIN,TOTAL 0.4 mg/dL (0.2-1.3); Calcium 8.5 mg/dL (8.4-10.2); Creatinine 1 1.82 mg/dL (0.52-1.04); EST GLOMERULAR FILTRATION RATE 28.6 ML/MIN; Potassium 3.9 mmol/L (3.5-5.1); Total Protein 7.3 g/dL (6.3-8.2)
[2023-03-28] MEDS ORDERED: TYLENOL 325 MG ONE (20:05)
[2023-03-28 20:10] LABS: Appearance Clear (Clear); Bacteria None Seen /HPF (None Seen); Bilirubin Negative (Negative); Blood Negative (Negative); Epithelial Cells Few /HPF (None Seen); Glucose, Urine Negative (Negative); Hyaline Casts NONE SEEN /LPF (0-2); Ketones Negative (Negative); Leukocyte Esterase Negative (Negative); Nitrite Negative (Negative); Ph 7.5 (4.6-8.0); Protein,Urine Dip Trace (Negative); RBC 0-2 /HPF (0-5); Specific Gravity <=1.005 (1.005-1.030); Urobilinogen 0.2 mg/dL (0.2); WBC 0-2 /HPF (0-5)
[2023-03-28 20:21] LABS: ADD URINE CULTURE? NO (NO)
--- NOTE | 2023-03-29 08:40 | XRAY ---
Indication: Headache, numbness, and tingling right face/arm. History stroke. Multiple contiguous axial images obtained through the head without contrast. Comparison: August 19, 2021 Again age-appropriate global atrophy, mild periventricular degenerative micro-ischemia, and old infarct left posterior parietal lobe. No acute and chronic hemorrhage, hydrocephalus, or mass effect. Fourth ventricle is midline. Bony calvarium intact. Visualized paranasal sinuses and mastoid air cells are clear. Impression: Again nonacute senile brain with old left parietal infarct.
--- NOTE | 2023-03-29 08:48 | XRAY ---
Indication: Weakness. Stroke symptoms. Comparison: October 31, 2022 Portable chest again demonstrates COPD with a few calcified granulomas. No focal infiltrate, consolidation, or large effusion. Heart not enlarged again with arteriosclerotic tortuous aorta. Bony thorax intact again with osteopenia, mild degenerative changes, and old right rib fractures. Impression: Continued nonacute chest with chronic features.
== END 2023-03-28 22:28 | disposition left against medical advice (07) ==
LOC: ED 18:29
DX: R20.0 Anesthesia of skin (principal); R51.9 Headache, unspecified; I10 Essential (primary) hypertension; E78.5 Hyperlipidemia, unspecified; Z79.01 Long term (current) use of anticoagulants; Z79.899 Other long term (current) drug therapy; Z72.0 Tobacco use; Z86.73 Personal history of transient ischemic attack (TIA), and cerebral infarction without residual deficits
CPT/HCPCS: 36000; 36415; 70450; 71045; 80053; 81001; 84484; 85025; 85610; 85730; 99283; A9270-GY

== ENCOUNTER 2023-09-21 12:05 | Observation (INO) | payer MEDICARE ==
[2023-09-21 13:33] VITALS: TEMP 97.7
[2023-09-21] MEDS ORDERED: Miralax Powder 17GM PACKET PO PRN (13:35)
[2023-09-21] MEDS ORDERED: TYLENOL EXTRA STRENGTH 500 MG PO PRN (13:35)
--- NOTE | 2023-09-21 13:40 | PCM.SSS ---
History of Present Illness - Chief Complaint Chief Complaint: Anemia Date: 09/21/23 History of Present Illness: is a 78 year old female with PMhx of hyperlipidemia, GERD, iron def. anemia, HTN, Sleep apnea, OA, hypothyroidism, COPD, CHF, cataracts, Stroke, TIA ( on Xarelto), and daily smoker. She was directly admitted for 2 units of blood. Pt has chronic anemia with transfusions in the past and hgb was 6.8 on 09/19/23. Will transfuse 2 units PRBC and d/c home later later if hgb is stable. Pt reports she has had nose bleeds off and on for 3 weeks. She has had tooth pain and placed on an antibiotic - Amoxicillin and just finished this today. She also c/o throat pain and recently saw her PCP yesterday for this but was on antibiotic at the time. She reports not being tested for strep. Will test today. She denies any further concern at this time. - Review of Systems Constitutional: No Fever, No Chills Eyes: No Symptoms Ears, Nose, & Throat: No Symptoms, Throat Pain Respiratory: No Cough, No Short Of Breath Cardiac: No Chest Pain, No Edema, No Syncope Abdominal/Gastrointestinal: No Abdominal Pain, No Nausea, No Vomiting, No Diarrhea Genitourinary Symptoms: No Dysuria Musculoskeletal: No Back Pain, No Neck Pain Skin: No Rash Neurological: No Dizziness, No Focal Weakness, No Sensory Changes Psychological: No Symptoms Endocrine: No Symptoms Hematologic/Lymphatic: No Symptoms Immunological/Allergic: No Symptoms Medications & Allergies Home Medications: Home Medication List Atorvastatin Calcium 80 mg PO HS 01/06/18 [History Confirmed 09/21/23] Ezetimibe 10 mg [Zetia 10 MG] 10 mg PO HS 04/02/18 [History Confirmed 09/21/23] PANTOPRAZOLE 40 mg Tablet [Protonix 40MG Tablet] 40 mg PO BID 04/02/18 [History Confirmed 09/21/23] Hydralazine HCl 100 mg PO TID 11/23/19 [History Confirmed 09/21/23] Ferrous Sulfate [Iron] 325 mg PO DAILY 11/27/20 [History Confirmed 09/21/23] Polyethylene Glycol 3350 [Miralax] 17 gm PO DAILY PRN PRN 11/27/20 [History Confirmed 09/21/23] Acetaminophen 500 mg PO Q4H PRN PRN 01/10/22 [History Confirmed 09/21/23] Alirocumab [Praluent Pen] 75 mg SQ UD 01/10/22 [History Confirmed 09/21/23] Bumetanide 0.5 mg PO DAILY 01/10/22 [History Confirmed 09/21/23] Amlodipine Besylate 2.5 mg PO DAILY 03/28/23 [History Confirmed 09/21/23] Fluticasone/Umeclidin/Vilanter [Trelegy Ellipta 200-62.5-25] 200 mcg IH DAILY 03/28/23 [History Confirmed 09/21/23] Rivaroxaban [Xarelto] 15 mg PO DAILY 03/28/23 [History Confirmed 09/21/23] Amox Tr/Potass Clav. 500 mg [Augmentin 500-125 Tablet] 500 mg PO BID 3 Days #6 tablet 09/21/23 [Rx] Levothyroxine Sodium 75 Mcg [Synthroid 75 Mcg] 75 mcg PO DAILY 09/21/23 [History Confirmed 09/21/23] Allergies/Adverse Reactions: Allergies Allergy/AdvReac Type Severity Reaction Status Date / Time cholecalciferol (vitamin D3) Allergy Severe Tightness Verified 09/21/23 13:09 [From Vitamin D3] of Throat - Past Medical History Past Medical History: Yes Neurological History: Stroke, TIA ENT History: Cataracts Cardiac History: High Cholesterol, Hypertension, Other Respiratory History: CHF, COPD, Sleep Apnea Endocrine Medical History: Hyperthyroidism Musculoskelatal History: Osteoporosis GI Medical History: Other History: No Pertinent History Pyscho-Social History: No Pertinent History Reproductive Disorders: No Pertinent History Comment: multiple issues with GI tract, patient has had several scopes done, patient and spouse unsure of exact findings, - Past Surgical History Past Surgical History: Yes Neuro Surgical History: No Pertinent History Cardiac History: No Pertinent History, Vascular Surgery, Other Respiratory Surgery: No Pertinent History GI Surgical History: Appendectomy, Cholecystectomy, Exploratory Laparoscopy, Other Genitourinary Surgical Hx: No Pertinent History Musculskeletal Surgical Hx: No Pertinent History Female Surgical History: Hysterectomy, Lumpectomy Other Surgical History: multiple colonoscopy and EGD's in the past, mass removed from ovary, stents in liver, AAA repair - Social History Smoking Status: Current every day smoker How long have you smoked: 50yrs Exposure to second hand smoke: Yes Alcohol: None Drug Use: none - Physical Exam Vital Signs: Vital Signs - 24 hr Temp Pulse Resp BP Pulse Ox 09/21/23 13:03 97.7 F 79 18 121/57 97 General Appearance: no apparent distress, alert Neurologic Exam: alert, oriented x 3, cooperative, normal mood/affect, nml cerebellar function, nml station & gait, sensation nml, No motor deficits Eye Exam: PERRL/EOMI, eyes nml inspection Ears, Nose, Throat Exam: normal ENT inspection, TMs normal, pharynx normal, moist mucous membranes, other Neck Exam: normal inspection, non-tender, supple, full range of motion Respiratory Exam: normal breath sounds, lungs clear, No respiratory distress Cardiovascular Exam: regular rate/rhythm, normal heart sounds, normal peripheral pulses Gastrointestinal/Abdomen Exam: soft, normal bowel sounds, No tenderness, No mass Back Exam: normal inspection, normal range of motion, No CVA tenderness, No vertebral tenderness Extremity Exam: normal inspection, normal range of motion, pelvis stable Skin Exam: normal color, warm, dry, No rash Lymphatic Exam: No adenopathy Results - Other Procedures and Tests Respiratory Therapy 09/21/23 13:33 Smoking Cessation Education ONCE Assessment/Plan (1) Anemia Current Visit: No Status: Acute Qualifiers: Anemia type: iron deficiency Assessment & Plan: - acute on chronic - Hgb 09/19 Hgb 6.8 - 2 Units PRBC- now - tele Code(s): D64.9 - ANEMIA, UNSPECIFIED (2) HTN (hypertension) Current Visit: Yes Status: Acute Assessment & Plan: - Cont home meds Bp stable Code(s): I10 - ESSENTIAL (PRIMARY) HYPERTENSION (3) GERD (gastroesophageal reflux disease) Current Visit: Yes Status: Acute Assessment & Plan: - continue Protonix Code(s): K21.9 - GASTRO-ESOPHAGEAL REFLUX DISEASE WITHOUT ESOPHAGITIS (4) Smoker Current Visit: Yes Status: Acute Assessment & Plan: - advised cessation - nicotine patch Code(s): F17.200 - NICOTINE DEPENDENCE, UNSPECIFIED, UNCOMPLICATED (5) Sore throat Current Visit: Yes Status: Acute Assessment & Plan: - strep swab- negative - Just finished amoxicillin today - will send in a few more days of antibiotics for throat pain OP. Code(s): J02.9 - ACUTE PHARYNGITIS, UNSPECIFIED Hospital Summary - Hospital Course Hospital Course: is a 78 year old female with PMhx of hyperlipidemia, GERD, iron def. anemia, HTN, Sleep apnea, OA, hypothyroidism, COPD, CHF, cataracts, Stroke, TIA ( on Xarelto), and daily smoker. He was directly admitted for 2 units of blood. Pt has chronic anemia with transfusions and hgb was 6.8 on 09/19/23. Will transfuse 2 units PRBC and d/c home later later if hgb is stable. Pt reports she has had nose bleeds off and on for 3 weeks. She has had tooth pain and placed on an antibiotic - Amoxicillin and just finished this today. She also c/o throat pain and recently saw her PCP yesterday for this but was on antibiotic at the time. She reports not being tested for strep. Tested today and strep test negative She denies any further concern at this time. After 2 units PRBC she can d/c if Hgb > 7.0. She will need to f/u with PCP OP this week. - Vitals & Intake/Output Vital Signs: Vital Signs Temperature 97.7 F 09/21/23 13:03 Pulse Rate 79 09/21/23 13:03 Respiratory Rate 18 09/21/23 13:03 Blood Pressure 121/57 09/21/23 13:03 O2 Sat by Pulse Oximetry 97 09/21/23 13:03 Intake & Output: Intake & Output 09/19/23 09/20/23 09/21/23 09/22/23 11:59 11:59 11:59 11:59 Weight 45.6 kg - Procedures and Test Procedures and Tests throughout Hospitalization: Therapy Orders & Screens 09/21/23 13:33 Smoking Cessation Education ONCE Comment: Diagnosis: Anemia Smoking Status: Current every day smoker How long have you smoked: 50yrs Have you smoked in the past 12 months: Yes Approximately how many cigarettes per day: 5 Do you dip or chew tobacco: No - Discharge Discharge Date: 09/21/23 Disposition: Home, Self-Care Condition: Stable Prescriptions: New Amox Tr/Potass Clav. 500 mg [Augmentin 500-125 Tablet] 500 mg PO BID 3 Days #6 tablet Continue Atorvastatin Calcium 80 mg PO HS Ezetimibe 10 mg [Zetia 10 MG] 10 mg PO HS PANTOPRAZOLE 40 mg Tablet [Protonix 40MG Tablet] 40 mg PO BID Hydralazine HCl 100 mg PO TID Polyethylene Glycol 3350 [Miralax] 17 gm PO DAILY PRN PRN PRN Reason: Constipation Ferrous Sulfate [Iron] 325 mg PO DAILY Acetaminophen 500 mg PO Q4H PRN PRN PRN Reason: fever or pain Alirocumab [Praluent Pen] 75 mg SQ UD Bumetanide 0.5 mg PO DAILY Rivaroxaban [Xarelto] 15 mg PO DAILY Fluticasone/Umeclidin/Vilanter [Trelegy Ellipta 200-62.5-25] 200 mcg IH DAILY Amlodipine Besylate 2.5 mg PO DAILY Levothyroxine Sodium 75 Mcg [Synthroid 75 Mcg] 75 mcg PO DAILY Follow up with: PRANAV HELM MD [Primary Care Provider] -
[2023-09-21] MEDS ORDERED: ALIROCUMAB 75 MG/ML SQ SCH (13:45)
[2023-09-21] MEDS ORDERED: Sodium Chloride 0.9% 1000 ML 1,000 ML IV SCH (13:45)
[2023-09-21 13:49] LABS: CROSS MATCH (PRBC) COMPATIBLE (COMPATIBLE)
[2023-09-21] MEDS ORDERED: Nicoderm CQ 21 MG TOP SCH (14:00)
[2023-09-21 14:38] VITALS: PULSE 75
[2023-09-21] MEDS ORDERED: NON-FORMULARY ITEM (Hydralazine Hcl [Hydralazine Hcl] 10 MG Tablet) PO SCH (15:00)
[2023-09-21] MEDS ORDERED: Apresoline 25 MG TABLET PO SCH (15:00)
[2023-09-21] MEDS ORDERED: MEDICATION INTERVENTION MC SCH ×2 (16:00)
[2023-09-21 16:28] VITALS: BP 137/65; RESP 17; O2SAT 97
[2023-09-21] MEDS ORDERED: XARELTO 10 MG TABLET ONE (17:30)
[2023-09-21] MEDS ORDERED: Protonix 40MG Tablet ONE (17:30)
[2023-09-21 21:54] LABS: Hematocrit 26.2 % (35-47); Hemoglobin 8.3 g/dL (12.0-16.0)
[2023-09-21] MEDS ORDERED: NON-FORMULARY ITEM (Atorvastatin Calcium [Atorvastatin Calcium] 80 MG Tablet) PO SCH (22:00)
[2023-09-21] MEDS ORDERED: Protonix 40MG Tablet PO SCH (22:00)
[2023-09-21] MEDS ORDERED: ZOCOR 20MG PO SCH (22:00)
[2023-09-21] MEDS ORDERED: Zetia 10 MG PO SCH (22:00)
[2023-09-22] MEDS ORDERED: SYNTHROID 75 MCG PO SCH (10:00)
[2023-09-22] MEDS ORDERED: NON-FORMULARY ITEM (Rivaroxaban [Xarelto] 15 MG Tablet) PO SCH (10:00)
[2023-09-22] MEDS ORDERED: NON-FORMULARY ITEM (Amlodipine Besylate [Amlodipine Besylate] 2.5 MG Tablet) PO SCH (10:00)
[2023-09-22] MEDS ORDERED: NORVASC 5 MG PO SCH (10:00)
[2023-09-22] MEDS ORDERED: NON-FORMULARY ITEM (Fluticasone/Umeclidin/Vilanter [Trelegy Ellipta 200-62.5-25] 1 EACH Bl IH SCH (10:00)
[2023-09-22] MEDS ORDERED: BUMEX 1 MG PO SCH (10:00)
[2023-09-22] MEDS ORDERED: XARELTO 10 MG TABLET PO SCH (10:00)
[2023-09-22] MEDS ORDERED: NON-FORMULARY ITEM (Bumetanide [Bumetanide] 0.5 MG Tablet) PO SCH (10:00)
[2023-09-22] MEDS ORDERED: FEOSOL 325 MG PO SCH (10:00)
== END 2023-09-21 22:46 | disposition home or self-care (01) ==
LOC: MED SURG 12:38
PROVIDERS: ADMIT Internal Medicine; ATTEND Internal Medicine
DX: D64.9 Anemia, unspecified (principal); I10 Essential (primary) hypertension; K21.9 Gastro-esophageal reflux disease without esophagitis; F17.200 Nicotine dependence, unspecified, uncomplicated; J02.9 Acute pharyngitis, unspecified; E03.9 Hypothyroidism, unspecified; G47.30 Sleep apnea, unspecified; E78.5 Hyperlipidemia, unspecified; Z79.899 Other long term (current) drug therapy; Z20.828 Contact with and (suspected) exposure to other viral communicable diseases; Z79.01 Long term (current) use of anticoagulants; Z86.73 Personal history of transient ischemic attack (TIA), and cerebral infarction without residual deficits
CPT/HCPCS: 36415; 36430; 85014; 85018; 86922; 87651; 93268; 94762; G0378; G0379; P9016; Q3014; A9270-GY

== ENCOUNTER 2024-01-15 07:04 | Emergency (ER) | payer MEDICARE ==
--- NOTE | 2024-01-15 07:14 | ERPHSYRPT ---
- History of Present Illness Time Seen by Provider: 01/15/24 07:04 Source: patient Exam Limitations: no limitations Physician History: Since 2 days ago pt has had a decreased appetite, since yesterday a cough, since about 2 hours ago shortness of air and intermittent right anterior chest pain - no cherst pain now. Per EMS pt had an 84% oxygen saturation at the snf about 30 minutes ago. Pt denies abdominal pain, fever, vomiting, diarrhea. Pt has been receiving dialysis -- for the past 2 months. Allergies/Adverse Reactions: cholecalciferol (vitamin D3) [From Vitamin D3] Allergy (Severe, Verified 01/15/24 07:26) Tightness of Throat Home Medications: Atorvastatin Calcium 80 mg PO HS 01/06/18 [History] Ezetimibe 10 mg [Zetia 10 MG] 10 mg PO HS 04/02/18 [History] PANTOPRAZOLE 40 mg Tablet [Protonix 40MG Tablet] 40 mg PO BID 04/02/18 [History] Hydralazine HCl 100 mg PO TID 11/23/19 [History] Ferrous Sulfate [Iron] 325 mg PO DAILY 11/27/20 [History] Polyethylene Glycol 3350 [Miralax] 17 gm PO DAILY PRN PRN 11/27/20 [History] Bumetanide 0.5 mg PO DAILY 01/10/22 [History] Fluticasone/Umeclidin/Vilanter [Trelegy Ellipta 200-62.5-25] 200 mcg IH DAILY 03/28/23 [History] Levothyroxine Sodium 75 Mcg [Synthroid 75 Mcg] 75 mcg PO DAILY 09/21/23 [History] Acetaminophen 325 mg [Tylenol 325 mg] 650 mg PO Q12H PRN 01/15/24 [History] Alirocumab [Praluent Pen] 75 mg SQ UD 01/15/24 [History] Amiodarone HCl 200 mg [Cordarone 200 MG] 200 mg PO DAILY 01/15/24 [History] L. Acidophilus/L.bulgaricus [Floranex Tablet] 2 each PO BID 01/15/24 [History] Lactulose 30 ml PO DAILY 01/15/24 [History] Megestrol Acetate [Megace Susp] 400 mg PO BID 01/15/24 [History] Metoprolol Succinate 25 mg Xl* [Toprol-Xl 25MG Tablets] 25 mg PO BID 01/15/24 [History] Multivitamin 1 each PO DAILY 01/15/24 [History] Nicotine 21 mg [Nicoderm CQ 21 MG] 21 mg TOP DAILY 01/15/24 [History] Prednisone 10 mg [Deltasone 10 mg] 10 mg PO DAILY 01/15/24 [History] calcitrioL [Calcitriol] 0.25 mcg PO UD 01/15/24 [History] Hx Tetanus, Diphtheria Vaccination/Date Given: Yes Hx Influenza Vaccination/Date Given: No Hx Pneumococcal Vaccination/Date Given: Yes - Review of Systems Constitutional: No Fever, No Chills Respiratory: Cough, Dyspnea Cardiac: Chest Pain Abdominal/Gastrointestinal: No Abdominal Pain, No Vomiting, No Diarrhea Neurological: No Headache - Past Medical History Pertinent Past Medical History: Yes Neurological History: Stroke, TIA ENT History: Cataracts Cardiac History: High Cholesterol, Hypertension, Other Respiratory History: CHF, COPD, Sleep Apnea Endocrine Medical History: Hyperthyroidism Musculoskeletal History: Osteoporosis GI Medical History: Other History: No Pertinent History Psycho-Social History: No Pertinent History Female Reproductive Disorders: No Pertinent History Other Medical History: multiple issues with GI tract, patient has had several scopes done, patient and spouse unsure of exact findings, - Past Surgical History Past Surgical History: Yes Neuro Surgical History: No Pertinent History Cardiac: No Pertinent History, Vascular Surgery, Other Respiratory: No Pertinent History Gastrointestinal: Appendectomy, Cholecystectomy, Exploratory Laparoscopy, Other Genitourinary: No Pertinent History Musculoskeletal: No Pertinent History Female Surgical History: Hysterectomy, Lumpectomy Other Surgical History: multiple colonoscopy and EGD's in the past, mass removed from ovary, stents in liver, AAA repair - Social History Smoking Status: Current every day smoker How long have you smoked: 50yrs Exposure to second hand smoke: Yes Drug Use: none Patient Lives Alone: No - Nursing Vital Signs Nursing Vital Signs: Initial Vital Signs Temperature 97.7 F 01/15/24 07:06 Pulse Rate 86 01/15/24 07:06 Respiratory Rate 18 01/15/24 07:06 Blood Pressure 120/72 01/15/24 07:06 O2 Sat by Pulse Oximetry 93 L 01/15/24 07:06 Pain Scale Pain Intensity 3 - Physical Exam General Appearance: alert Eye Exam: PERRL/EOMI Ears, Nose, Throat Exam: hearing grossly normal, normal pharynx Neck Exam: normal inspection Respiratory Exam: respiratory distress, other (Dialysis catheter on right anterior chest) Cardiovascular/Chest Exam: normal heart sounds Abdominal/Gastrointestinal Exam: normal bowel sounds Extremity Exam: No pedal edema Neurologic Exam: alert, cooperative Skin Exam: warm, dry SpO2 Interpretation: hypoxic SpO2: 93 O2 Delivery: Non-rebreather (15 L/min) - Course EKG Interpreted by Me: RATE (84), Sinus Rhythm, Left [place] Deviation, Other (QTc = 513; LAFB; T wave abnormalities.) - Radiology Exams Chest X-ray Interpretation: Discussed w/ radiologist (New cardiomegaly, pulmonary edema and moderate bilateral effusions. New diffuse bilateral airspace opacities and new right double-lumen dialysis catheter.) Ordered Tests: Active Orders 24 hr Category Date Time Status Inspector Of Weights And Measures STAT Care 01/15/24 07:19 Active EKG-ER Only STAT Care 01/15/24 07:16 Active IV Insertion STAT Care 01/15/24 07:16 Active Oxygen-ED Only Nasal Cannula 4 lpm Care 01/15/24 07:16 Active CHEST 1 VIEW (PORTABLE) Stat Exams 01/15/24 07:17 Completed AMYLASE Stat Lab 01/15/24 07:48 Received BLOOD CULTURE Stat Lab 01/15/24 08:20 Received CBC W DIFF Stat Lab 01/15/24 07:16 Completed CULTURE,SPUTUM Stat Lab 01/15/24 07:18 Ordered D-DIMER QUANTITATIVE Stat Lab 01/15/24 07:48 Received LIPASE Stat Lab 01/15/24 07:48 Received Lactic Acid Stat Lab 01/15/24 07:16 Completed MAGNESIUM Stat Lab 01/15/24 07:48 Received NT PRO BNPII Stat Lab 01/15/24 07:48 Completed PROTIME WITH INR Stat Lab 01/15/24 07:48 Completed PTT Stat Lab 01/15/24 07:48 Completed TROPONIN Q4H Lab 01/15/24 07:48 Completed TROPONIN Q4H Lab 01/15/24 11:30 Ordered TROPONIN Q4H Lab 01/15/24 15:30 Ordered UA W/RFX UR CULTURE Stat Lab 01/15/24 07:17 Ordered VENOUS BLOOD GAS Stat Lab 01/15/24 07:19 Completed Respiratory Therapy Assessment DAILY RT 01/15/24 08:08 Completed Medication Summary Generic Name Dose Route Start Last Admin Trade Name Rishi PRN Reason Stop Dose Admin Sodium Chloride 1,000 mls @ 100 mls/hr 01/15/24 07:30 01/15/24 08:29 Sodium Chloride 0.9% 1000 Ml IV 02/14/24 07:29 100 mls/hr .Q10H JIM Administration Discontinued Medications Generic Name Dose Route Start Last Admin Trade Name Rishi PEREZN Reason Stop Dose Admin Albuterol Sulfate 2.5 mg 01/15/24 07:16 01/15/24 08:11 Albuterol Sulfate 2.5 Mg/3 Ml Neb IH 01/15/24 07:17 2.5 mg STAT ONE Administration Albuterol Sulfate Confirm 01/15/24 08:07 Albuterol Sulfate 2.5 Mg/3 Ml Neb Administered 01/15/24 08:08 Dose 2.5 mg IH .STK-MED ONE Azithromycin 500 mg in 250 mls @ 250 mls/hr 01/15/24 07:16 Zithromax 500 Mg/ 250 Ml Nacl Premix IV 01/15/24 08:15 STAT STA Ceftriaxone Sodium 1 gm in 100 mls @ 200 mls/hr 01/15/24 07:16 01/15/24 08:29 Rocephin 1 Gm / 100 Ml Nacl IV 01/15/24 07:45 200 ml/hr STAT ONE 200 mls/hr Administration Ceftriaxone Sodium Confirm 01/15/24 08:24 Rocephin 1 Gm / 100 Ml Nacl Administered 01/15/24 08:25 Dose 1 gm in 100 mls @ ud IV .STK-MED ONE Lab/Rad Data: Laboratory Result Diagrams 01/15/24 07:16 01/15/24 07:48 Laboratory Results 01/15/24 01/15/24 01/15/24 Range/Units 08:20 07:48 07:48 WBC (4.0-10.5) x10^3/uL RBC (4.1-5.4) x10^6/uL Hgb (12.0-16.0) g/dL Hct (35-47) % MCV (78-100) fL MCH (26-32) pg MCHC (32-36) g/dL RDW (11.5-14.0) % Plt Count (150-450) x10^3/uL MPV (7.5-11.0) fL Gran % (36.0-66.0) % Immature Gran % (Auto) (0.00-0.4) % Nucleat RBC Rel Count (0.00-0.1) % Eos # (Auto) (0-0.5) x10^3/uL Immature Gran # (Auto) (0.00-0.03) x10^3u/L Absolute Lymphs (auto) (1.0-4.6) x10^3/uL Absolute Monos (auto) (0.0-1.3) x10^3/uL Absolute Nucleated RBC (0.00-0.01) x10^3u/L Lymphocytes % (24.0-44.0) % Monocytes % (0.0-12.0) % Eosinophils % (0.00-5.0) % Basophils % (0.0-0.4) % Absolute Granulocytes (1.4-6.9) x10^3/uL Basophils # (0-0.4) x10^3/uL PT (9.4-12.5) SECONDS INR (0.8-3.0) APTT (25.1-36.5) SECONDS pO2/FiO2 Ratio % VBG pH (7.32-7.42) VBG pCO2 at Pat Temp (42-55) mm/Hg VBG pO2 at Pat Temp (25-40) mm/Hg VBG HCO3 (22-28) meq/L VBG O2 Sat (Nazanin) (95-100) VBG Base Excess (-2.0-2.0) VBG Hemoglobin VBG Carboxyhemoglobin (0.0-6.9) % T HGB POC Potassium (3.5-5.1) Sodium Direct (138-146) mmol/L Potassium (3.5-4.9) mmol/L Chloride (98-109) mmol/L Carbon Dioxide (24-29) mmol/L Venous BUN (8-26) mg/dL Creatinine (0.6-1.3) mg/dL Glucose (70-105) mg/dL Lactic Acid (0.4-2.0) Ionized Calcium (1.12-1.32) mmol/L Troponin I 1.230 H* (0.000-0.033) ng/mL NT-Pro-B Natriuret Pep > 474721 (<300) pg/mL Influenza Type A Ag NEGATIVE (NEGATIVE) Influenza Type B Ag NEGATIVE (NEGATIVE) RSV (PCR) NEGATIVE (NEGATIVE) SARS-CoV-2 (PCR) NEGATIVE (NEGATIVE) Group A Strep Antibody NOT DETECTED (NEGATIVE) 01/15/24 01/15/24 01/15/24 Range/Units 07:48 07:48 07:19 WBC (4.0-10.5) x10^3/uL RBC (4.1-5.4) x10^6/uL Hgb (12.0-16.0) g/dL Hct (35-47) % MCV (78-100) fL MCH (26-32) pg MCHC (32-36) g/dL RDW (11.5-14.0) % Plt Count (150-450) x10^3/uL MPV (7.5-11.0) fL Gran % (36.0-66.0) % Immature Gran % (Auto) (0.00-0.4) % Nucleat RBC Rel Count (0.00-0.1) % Eos # (Auto) (0-0.5) x10^3/uL Immature Gran # (Auto) (0.00-0.03) x10^3u/L Absolute Lymphs (auto) (1.0-4.6) x10^3/uL Absolute Monos (auto) (0.0-1.3) x10^3/uL Absolute Nucleated RBC (0.00-0.01) x10^3u/L Lymphocytes % (24.0-44.0) % Monocytes % (0.0-12.0) % Eosinophils % (0.00-5.0) % Basophils % (0.0-0.4) % Absolute Granulocytes (1.4-6.9) x10^3/uL Basophils # (0-0.4) x10^3/uL PT 10.8 (9.4-12.5) SECONDS INR 0.99 (0.8-3.0) APTT 27.0 (25.1-36.5) SECONDS pO2/FiO2 Ratio 100.0 % VBG pH 7.53 H (7.32-7.42) VBG pCO2 at Pat Temp 42 (42-55) mm/Hg VBG pO2 at Pat Temp 29 (25-40) mm/Hg VBG HCO3 35.1 H* (22-28) meq/L VBG O2 Sat (Nazanin) 43.7 L (95-100) VBG Base Excess 11.3 H (-2.0-2.0) VBG Hemoglobin 8.6 VBG Carboxyhemoglobin 6.1 (0.0-6.9) % T HGB POC Potassium 5.1 (3.5-5.1) Sodium Direct 138 (138-146) mmol/L Potassium 4.8 (3.5-4.9) mmol/L Chloride 97 L (98-109) mmol/L Carbon Dioxide 32 H (24-29) mmol/L Venous BUN 51 H (8-26) mg/dL Creatinine 3.8 H (0.6-1.3) mg/dL Glucose 101 (70-105) mg/dL Lactic Acid (0.4-2.0) Ionized Calcium 0.97 L (1.12-1.32) mmol/L Troponin I (0.000-0.033) ng/mL NT-Pro-B Natriuret Pep (<300) pg/mL Influenza Type A Ag (NEGATIVE) Influenza Type B Ag (NEGATIVE) RSV (PCR) (NEGATIVE) SARS-CoV-2 (PCR) (NEGATIVE) Group A Strep Antibody (NEGATIVE) 01/15/24 01/15/24 Range/Units 07:16 07:16 WBC 14.2 H (4.0-10.5) x10^3/uL RBC 2.70 L (4.1-5.4) x10^6/uL Hgb 8.2 L (12.0-16.0) g/dL Hct 26.3 L (35-47) % MCV 97.4 (78-100) fL MCH 30.4 (26-32) pg MCHC 31.2 L (32-36) g/dL RDW 19.1 H (11.5-14.0) % Plt Count 186 (150-450) x10^3/uL MPV 9.9 (7.5-11.0) fL Gran % 87.8 H (36.0-66.0) % Immature Gran % (Auto) 0.7 H (0.00-0.4) % Nucleat RBC Rel Count 0.0 (0.00-0.1) % Eos # (Auto) 0.14 (0-0.5) x10^3/uL Immature Gran # (Auto) 0.10 H (0.00-0.03) x10^3u/L Absolute Lymphs (auto) 0.70 L (1.0-4.6) x10^3/uL Absolute Monos (auto) 0.77 (0.0-1.3) x10^3/uL Absolute Nucleated RBC 0.00 (0.00-0.01) x10^3u/L Lymphocytes % 4.9 L (24.0-44.0) % Monocytes % 5.4 (0.0-12.0) % Eosinophils % 1.0 (0.00-5.0) % Basophils % 0.2 (0.0-0.4) % Absolute Granulocytes 12.42 H (1.4-6.9) x10^3/uL Basophils # 0.03 (0-0.4) x10^3/uL PT (9.4-12.5) SECONDS INR (0.8-3.0) APTT (25.1-36.5) SECONDS pO2/FiO2 Ratio % VBG pH (7.32-7.42) VBG pCO2 at Pat Temp (42-55) mm/Hg VBG pO2 at Pat Temp (25-40) mm/Hg VBG HCO3 (22-28) meq/L VBG O2 Sat (Nazanin) (95-100) VBG Base Excess (-2.0-2.0) VBG Hemoglobin VBG Carboxyhemoglobin (0.0-6.9) % T HGB POC Potassium (3.5-5.1) Sodium Direct (138-146) mmol/L Potassium (3.5-4.9) mmol/L Chloride (98-109) mmol/L Carbon Dioxide (24-29) mmol/L Venous BUN (8-26) mg/dL Creatinine (0.6-1.3) mg/dL Glucose (70-105) mg/dL Lactic Acid 1.7 (0.4-2.0) Ionized Calcium (1.12-1.32) mmol/L Troponin I (0.000-0.033) ng/mL NT-Pro-B Natriuret Pep (<300) pg/mL Influenza Type A Ag (NEGATIVE) Influenza Type B Ag (NEGATIVE) RSV (PCR) (NEGATIVE) SARS-CoV-2 (PCR) (NEGATIVE) Group A Strep Antibody (NEGATIVE) - Progress Progress: unchanged Will see patient in: other (Dr. Kaur([id number]) accepted pt for transfer to [facility].) Counseled pt/family regarding: lab results, diagnosis, rad results Medical Desision Making - Diagnostic Testing Diagnostic test were ordered, analyzed, and reviewed by me: Yes Radiological Interpretation: Teleradiologist Report - Departure Departure Disposition: Transfer ([facility]) Clinical Impression: Pneumonia, Hypoxia, ESRD (end stage renal disease), Elevated troponin Condition: Stable Critical Care Time: Yes Critical Care Time(excluding separately billable procedures): Critical 30-74 mins Referrals: PRANAV HELM MD [Primary Care Provider] - Follow up/PCP as directed
[2024-01-15 07:26] VITALS: TEMP 97.7
[2024-01-15 08:02] LABS: Absolute Neutrophil Ct (ANC) 12.42 x10^3/uL (1.4-6.9); BASOPHIL % 0.2 % (0.0-0.4); Basophil (Absolute #) 0.03 x10^3/uL (0-0.4); Eosinophil (Absolute #) 0.14 x10^3/uL (0-0.5); Hematocrit 26.3 % (35-47); Hemoglobin 8.2 g/dL (12.0-16.0); IMMATURE GRAN % 0.7 % (0.00-0.4); Lymphocytes % 4.9 % (24.0-44.0); Mean Cell Volume 97.4 fL (78-100); Mean Corpuscular Hemoglobin 30.4 pg (26-32); Mean Corpuscular Hgb Concent. 31.2 g/dL (32-36); Mean Platelet Volume 9.9 fL (7.5-11.0); Monocyte (Absolute #) 0.77 x10^3/uL (0.0-1.3); Monocytes % 5.4 % (0.0-12.0); Neutrophil % 87.8 % (36.0-66.0); Platelet Count 186 x10^3/uL (150-450); Red Cell Distribution Width 19.1 % (11.5-14.0); White Blood Count 14.2 x10^3/uL (4.0-10.5)
[2024-01-15 08:06] LABS: VBG BASE EXCESS 11.3 (-2.0-2.0); VBG CARBOXYHEMOGLOBIN 6.1 % T HGB (0.0-6.9); VBG HCO3- 35.1 meq/L (22-28); VBG HEMOGLOBIN 8.6; VBG O2 SATURATION 43.7 (95-100); VBG POTASSIUM 5.1 (3.5-5.1); VBG pH 7.53 (7.32-7.42)
[2024-01-15] MEDS ORDERED: PROVENTIL 2.5 MG/3 ML NEB IH ONE (08:07)
[2024-01-15] MEDS: PROVENTIL 2.5 MG/3 ML NEB IH ONE (08:11)
[2024-01-15 08:16] LABS: ISTAT K 4.8 mmol/L (3.5-4.9)
[2024-01-15 08:17] LABS: INR 0.99 (0.8-3.0); ISTAT CREA 3.8 mg/dL (0.6-1.3); ISTAT iCA 0.97 mmol/L (1.12-1.32); PROTIME 10.8 SECONDS (9.4-12.5)
[2024-01-15] MEDS ORDERED: Sodium Chloride 0.9% 1000 ML 1,000 ML ONE (08:24)
[2024-01-15] MEDS ORDERED: ROCEPHIN 1 GM / 100 ML NaCl 1 GM/100 ML IVPB IV ONE (08:24)
[2024-01-15] MEDS: Sodium Chloride 0.9% 1000 ML 1,000 ML IV SCH (08:29)
[2024-01-15] MEDS: ROCEPHIN 1 GM / 100 ML NaCl 1 GM/100 ML IVPB IV ONE (08:29)
[2024-01-15 08:37] LABS: INFLUENZA A NEGATIVE (NEGATIVE); INFLUENZA B NEGATIVE (NEGATIVE); RESPIRATORY SYNCTIAL VIRUS NEGATIVE (NEGATIVE); SARS-CoV-2 Xpert Express NEGATIVE (NEGATIVE)
[2024-01-15 08:48] LABS: NT PRO BNPII > 280000 pg/mL (<300)
--- NOTE | 2024-01-15 08:56 | XRAY ---
Indication: Cough. Short of breath. Comparison: March 28, 2023 Portable chest demonstrates new cardiomegaly, pulmonary edema, and moderate bilateral effusions favoring cardiac decompensation/CHF versus fluid overload. New diffuse bilateral airspace opacities and new right double-lumen dialysis catheter. Again chronic findings including arteriosclerotic tortuous descending aorta, osteopenia, bony degenerative changes, and old right rib fractures.
[2024-01-15] MEDS ORDERED: Zithromax 500 MG/ 250 ML NaCl Premix 500 MG/250 ML IVPB IV ONE (09:21)
[2024-01-15] MEDS ORDERED: MORPHINE SULFATE 2 MG INJ ONE (09:21)
[2024-01-15] MEDS: MORPHINE SULFATE 2 MG INJ IV ONE (09:27)
[2024-01-15] MEDS: Zithromax 500 MG/ 250 ML NaCl Premix 500 MG/250 ML IVPB IV STA (09:28)
[2024-01-15] MEDS ORDERED: NOREPINEPHRINE 8 MG/250 ML-D5W 8 MG/250 ML PLAST..BAG IV ONE (10:17)
[2024-01-15] MEDS: NOREPINEPHRINE 8 MG/250 ML-D5W 8 MG/250 ML PLAST..BAG IV PRN (10:19)
[2024-01-15 11:27] VITALS: BP 116/66; PULSE 81; RESP 24; O2SAT 96
== END 2024-01-15 11:47 | disposition short-term general hospital (02) ==
LOC: ED 07:04
DX: J18.9 Pneumonia, unspecified organism (principal); R09.02 Hypoxemia; I13.2 Hypertensive heart and chronic kidney disease with heart failure and with stage 5 chronic kidney disease, or end stage renal disease; N18.6 End stage renal disease; R77.8 Other specified abnormalities of plasma proteins; I50.9 Heart failure, unspecified; E78.5 Hyperlipidemia, unspecified; R05.1 Acute cough; R07.9 Chest pain, unspecified; Z79.52 Long term (current) use of systemic steroids; Z79.899 Other long term (current) drug therapy; Z72.0 Tobacco use; Z99.2 Dependence on renal dialysis; Z86.73 Personal history of transient ischemic attack (TIA), and cerebral infarction without residual deficits
CPT/HCPCS: 0241U; 36000; 36415; 71045; 80047; 82150; 82805; 83605; 83690; 83735; 83880; 84484; 85025; 85379; 85610; 85730; 87040; 87651; 93005; 93041; 94640; 96365; 96368; 96374; 99285; 99291; J0456; J0696; J2270; J7609; A9270-GY